=== PATIENT | male | born 1965 | race Caucasian/White ===

== ENCOUNTER → 2017-11-09 | Outpatient (CLI) | payer MEDICARE, OTHER ==
--- NOTE | 2017-11-09 10:19 | US ---
EXAMINATION TYPE: US venous doppler duplex LE LT DATE OF EXAM: 11/09/2017 9:28 AM COMPARISON: NONE CLINICAL HISTORY: M79.605 PAIN IN LT LEG. Wound left mid lateral calf for 2 weeks LOWER EXTREMITY VENOUS INSUFFICIENCY SIDE PERFORMED: left 1) Color flow is present and patency is documented in the following vessels. No DVT or SVT is noted . EIV Common Femoral Vein Deep Femoral Vein Femoral Vein Popliteal Vein Proximal Calf Veins Greater Saph Vein Upper Small Saph Vein 2) There is venous reflux noted at the following venous levels: left CFV and left small saph vein IMPRESSION: Venous reflux as noted.
--- NOTE | 2017-11-11 13:11 | P.ARTDOP ---
Arterial Doppler LOWER EXTREMITY ARTERIAL DOPPLER: DATE OF SERVICE: 11/09/2017 Reason for study: Left leg ulcer. Doppler waveforms: Multiphasic bilaterally throughout. Pulse volume recording: Normal configurations throughout. Pressure gradients: None. Ankle-brachial indices: Greater than 1 bilaterally. Toe pressures: 100 on the right, 127 on the left Impression: Normal study.
== END | disposition home or self-care (01) ==
LOC: RADUSWWP 08:44
PROVIDERS: ATTEND Podiatrist
DX: I87.2 Venous insufficiency (chronic) (peripheral) (principal); M79.604 Pain in right leg
CPT/HCPCS: 93923

== ENCOUNTER 2018-02-03 17:57 | Inpatient (IN) | payer MEDICARE, OTHER ==
[2018-02-03] MEDS ORDERED: DEXTROSE 50%-WATER 50 ML SYRINGE IVP STA (18:12)
[2018-02-03 18:17] LABS: Glucose,Whole Blood 69 mg/dL (75-99)
[2018-02-03 18:17] LABS: Glucose,Whole Blood 61 mg/dL (75-99)
[2018-02-03 19:09] LABS: Appearance,Urine Clear (Clear); Bilirubin,Urine Negative (Negative); Blood,Urine Trace (Negative); Color,Urine Yellow; Glucose,Urine (UA) Negative (Negative); Ketones,Urine Negative (Negative); Leukocyte Esterase,Urine Negative (Negative); Mucus,Urine Rare /hpf; Nitrite,Urine Negative (Negative); PH, Urine 5.5 (5.0-8.0); Protein,Urine 1+ (Negative); RBC,Urine 21 /hpf (0-5); Specific Gravity,Urine 1.012 (1.001-1.035); Squamous Epithelial Cell,Urine <1 /hpf (0-4); Urobilinogen,Urine <2.0 mg/dL (<2.0); WBC,Urine 11 /hpf (0-5)
--- NOTE | 2018-02-03 19:19 | CT ---
EXAMINATION TYPE: CT brain wo con DATE OF EXAM: 02/03/2018 HISTORY: Altered mental status CT DLP: 753 mGycm. Automated Exposure Control for Dose Reduction was Utilized. TECHNIQUE: CT scan of the head is performed without contrast. COMPARISON: CT brain September 06, 2017. FINDINGS: Exam noted suboptimal due to patient motion. There is no acute intracranial hemorrhage or midline shift identified. There is diffuse ventricular and sulcal prominence consistent with diffuse age-related cerebral atrophy. There is low-attenuation in the periventricular white matter most lik ruchi an basis of product of chronic small vessel ischemic change. The globes are intact and the visua lized sinuses are clear. The calvarium is intact. IMPRESSION: No acute intracranial hemorrhage or midline shift. There is mild diffuse age-related ce rebral atrophy and [id number] nonspecific white matter changes most likely on basis of product of chronic small vessel ischemic change redemonstrated. No significant change from prior CT is clear ly seen.
--- NOTE | 2018-02-03 19:37 | XR ---
EXAMINATION TYPE: XR chest 2V DATE OF EXAM: 02/03/2018 COMPARISON: Prior chest x-ray October 11, 2017. HISTORY: Altered mental status and weakness, possible infiltrate. History of heart failure. TECHNIQUE: Frontal and lateral views of the chest are obtained. FINDINGS: Exam is suboptimal due to patient's large body habitus. Low lung volumes are redemonstrated . There is no focal air space opacity, pleural effusion, or pneumothorax seen. The cardiac silhouet te size remains enlarged. There is an interval improvement in central vascular congestion. The visual ized osseous structures are intact. IMPRESSION: Cardiomegaly without acute pulmonary process identified currently .
[2018-02-03 19:43] LABS: Basophils % (A) 0 %; Eosinophils # (A) 0.1 k/uL (0-0.7); Eosinophils % (A) 2 %; HCT 40.3 % (39.0-53.0); HGB 12.8 gm/dL (13.0-17.5); Lymphocytes # (A) 0.5 k/uL (1.0-4.8); Lymphocytes % (A) 9 %; MCH 27.2 pg (25.0-35.0); MCHC 31.8 g/dL (31.0-37.0); MCV 85.6 fL (80.0-100.0); Mean Platelet Volume 6.9; Monocytes # (A) 0.2 k/uL (0-1.0); Monocytes % (A) 4 %; Neutrophils # (A) 4.8 k/uL (1.3-7.7); Neutrophils % (A) 82 %; Platelet Count 241 k/uL (150-450); RBC 4.71 m/uL (4.30-5.90); RDW 15.9 % (11.5-15.5); WBC 5.8 k/uL (3.8-10.6)
[2018-02-03 19:52] LABS: Calcium 9.2 mg/dL (8.4-10.2); Magnesium 2.3 mg/dL (1.6-2.3); Phosphorus 5.2 mg/dL (2.5-4.5); Potassium 4.6 mmol/L (3.5-5.1); Total Bilirubin 0.3 mg/dL (0.2-1.3)
[2018-02-03 19:53] LABS: Glucose,Whole Blood 87 mg/dL (75-99)
[2018-02-03 20:15] LABS: Glucose,Whole Blood 388 mg/dL (75-99)
[2018-02-03 20:28] LABS: Creatine Kinase MB 6.8 ng/mL (0.0-2.4); Troponin I 0.123 ng/mL (0.000-0.034)
[2018-02-03 20:47] LABS: Prothrombin Time 10.1 sec (9.0-12.0)
[2018-02-03 20:48] LABS: Partial Thromboplastin Time 20.9 sec (22.0-30.0)
--- NOTE | 2018-02-03 20:55 | ED ---
Altered Mental Status HPI - General Chief Complaint: Altered Mental Status Stated Complaint: ALtered Mental Status Time Seen by Provider: 02/03/18 18:08 Source: EMS Mode of arrival: EMS Limitations: no limitations - History of Present Illness Initial Comments: This 53-year-old white male presents by EMS with altered mental status. He apparently had a low blood sugar of 61 upon arrival. He was initially unable to give any history. Upon his mental status changes resolving, he does relate that he's been short of breath and having some midsternal chest pain/pressure for the last 2 days. He denies any fever or chills. He also relates that he's had some chronic low back pain. He used to be on [place]'s or Tylenol fours but his doctor stopped prescribing these as he took 2 much of them at one point. He also complains of left leg wound. He states that it is chronic in nature and apparently had a staph infection. He has home health nurse evaluating this. It seems to be improving. He states that he is a diabetic and he has a hard time controlling his blood sugar as he is not able to eat food like when he is in the hospital. He states that he cannot afford much food and is unable to drive to go to the grocery store. He denies any other complaints or modifying factors. - Related Data Home Medications Medication Instructions Recorded Confirmed Albuterol Inhaler [Ventolin Hfa 2 puff INHALATION RT-Q6H PRN 07/25/15 11/27/17 Inhaler] Budesonide-Formot 160-4.5 Mcg 2 puff INHALATION RT-BID 07/25/15 11/27/17 [Symbicort 160-4.5 Mcg Inhaler] Carvedilol 25 mg PO BID 07/25/15 11/27/17 Fenofibrate 160 mg PO DAILY 07/25/15 11/27/17 Gabapentin [Neurontin] 900 mg PO TID 07/25/15 11/27/17 Insulin Lispro [humaLOG Kwikpen] See Protocol SQ AC-TID 07/25/15 11/27/17 Simvastatin [Zocor] 40 mg PO HS 07/25/15 11/27/17 hydrALAZINE HCL 50 mg PO BID 07/25/15 11/27/17 DULoxetine HCL [Duloxetine HCl] 60 mg PO DAILY 07/07/16 11/27/17 Doxazosin Mesylate 8 mg PO HS 07/07/16 11/27/17 Fluticasone Nasal [place] [Flonase 1 - 2 sprays EA NOSTRIL DAILY PRN 07/07/1607/06 Nasal [place]] Tamsulosin HCl 0.4 mg PO HS 07/07/16 11/27/17 Lidocaine 5% Oint [Xylocaine 5% 1 applic TOPICAL BID PRN 09/06/17 11/27/17 Oint] buPROPion HCL [Wellbutrin XL] 300 mg PO DAILY 09/06/17 11/27/17 ALPRAZolam [Xanax] 0.25 mg PO BID PRN 10/08/17 11/27/17 Diclofenac Sodium [Voltaren Gel] 1 applic TOPICAL BID PRN 10/08/17 11/27/17 Montelukast [Singulair] 10 mg PO HS 10/08/17 11/27/17 rOPINIRole HCL [Requip] 6 mg PO BID@1200,2100 10/08/17 11/27/17 Previous Rx's Medication Instructions Recorded Furosemide [Lasix] 40 mg PO BID #60 tablet 10/12/17 Insulin Glargine,Hum.rec.anlog 15 unit SQ BID #0 10/12/17 [Lantus Solostar] Insulin Lispro [humaLOG Kwikpen] 8 unit SQ AC-TID #0 10/12/17 Allergies Allergy/AdvReac Type Severity Reaction Status Date / Time environmental AdvReac Unknown Uncoded 11/27/17 08:20 Review of Systems ROS Statement: Those systems with pertinent positive or pertinent negative responses have been documented in the HPI. ROS Other: All systems not noted in ROS Statement are negative. Past Medical History Past Medical History: Heart Failure, COPD, Diabetes Mellitus, Hyperlipidemia, Hypertension, Sleep Apnea/CPAP/BIPAP Additional Past Medical History / Comment(s): occasional numbness on left side, arthritis ,no cpap used"i could'nt afford it sent it back", left leg wound r/t trauma from fall, tinnitus, neuropathy. rls History of Any Multi-Drug Resistant Organisms: None Reported Past Surgical History: Cholecystectomy Additional Past Surgical History / Comment(s): colonoscopy Past Anesthesia/Blood Transfusion Reactions: No Reported Reaction Past Psychological History: Bipolar, Depression, Panic Disorder Smoking Status: Former smoker Past Alcohol Use History: None Reported Past Drug Use History: None Reported - Past Family History Father Family Medical History: Cancer Additional Family Medical History / Comment(s): lymphoma cancer Mother Additional Family Medical History / Comment(s): alzhemimers, General Exam - General Exam Comments Initial Comments: GENERAL: The patient is well nourished and well hydrated. VITAL SIGNS: Heart rate, blood pressure, respiratory rate reviewed as recorded in nurse's notes. EYES: Pupils are round and reactive. Extraocular movements are intact. No conjunctival / lid redness or swelling. ENT: No external evidence of injury, swelling, or ecchymosis. Airway is patent. Throat is clear. NECK: Nontender. No swelling or evidence of injury. No subcutaneous emphysema. Trachea is midline. No thyroid mass. HEART: Regular rate and rhythm. Good peripheral pulses. LUNGS/CHEST: Breath sounds clear and equal bilaterally. No rales, rhonchi, or wheezes. No ecchymosis, subcutaneous emphysema, or tenderness. ABDOMEN: Abdomen soft without tenderness. No palpable masses or organomegaly. No peritoneal signs. No abdominal wall swelling or ecchymosis. The patient is morbidly obese. EXTREMITIES: No extremity tenderness. Normal muscle tone and function. No thoracolumbar tenderness. NEUROLOGIC: He initially does have significant change in mental status. He will wake up slightly but is slurring his speech. This later does resolve. On recheck, sensation is grossly intact. Cranial nerve exam reveals face is symmetrical, tongue is midline, speech is clear. SKIN: There is a mild chronic wound noted to the left anterior lateral josue. There is no associated significant erythema. No induration or masses noted. PSYCHIATRIC: Alert and oriented. Appropriate behavior and judgment. Limitations: no limitations Course Vital Signs 02/03/18 02/03/18 02/03/18 18:33 18:53 19:27 Temperature 96.9 F L Pulse Rate 71 78 81 Respiratory 22 22 25 H Rate Blood Pressure 157/89 155/75 162/75 O2 Sat by Pulse 95 96 96 Oximetry 02/03/18 19:47 Temperature 97 F L Pulse Rate 63 Respiratory 18 Rate Blood Pressure 162/75 O2 Sat by Pulse 96 Oximetry Medical Decision Making - Medical Decision Making The patient is seen and examined. All diagnostics were reviewed. His initial EKG shows a sinus rhythm at a rate of 71. There is a first-degree AV block. There is no acute ST-T wave changes identified. The NH interval 04, QRS duration is 106, and the QTC intervals 478. The patient's blood sugar was low at 61 and he receives one amp of D50. The blood sugar does come up. His mental status changes seemed to improve. He also receives oxygen. Old records were reviewed and it does show that he has a significant history of sleep apnea. He states that he cannot afford a CPAP machine. The possibility of some CO2 narcosis and would be plausible as well but he does eventually improve his mentation significantly and there is no further slurring of his speech. His chest x-ray does not show any abnormalities. It does show some degree of cardiomegaly. It is somewhat limited due to significantly increased body habitus. The BNP and troponin is slightly elevated. His blood sugar on his labs is 81 she is improved. It is felt as though the possibility of acute coronary syndrome certainly is possible. It is felt as though he benefit from admission to the hospital for further treatment. He is agreeable to this plan. Case is discussed with Dr. Barfield and he is agreeable as well. In addition the patient had a computed tomography scan of the brain which did not show any acute process. - Lab Data Result diagrams: 02/03/18 19:35 02/03/18 19:35 Lab Results 02/03/18 02/03/18 02/03/18 Range/Units 18:04 18:06 18:44 WBC (3.8-10.6) k/uL RBC (4.30-5.90) m/uL Hgb (13.0-17.5) gm/dL Hct (39.0-53.0) % MCV (80.0-100.0) fL MCH (25.0-35.0) pg MCHC (31.0-37.0) g/dL RDW (11.5-15.5) % Plt Count (150-450) k/uL Neutrophils % % Lymphocytes % % Monocytes % % Eosinophils % % Basophils % % Neutrophils # (1.3-7.7) k/uL Lymphocytes # (1.0-4.8) k/uL Monocytes # (0-1.0) k/uL Eosinophils # (0-0.7) k/uL Basophils # (0-0.2) k/uL PT (9.0-12.0) sec INR (<1.2) APTT (22.0-30.0) sec Sodium (137-145) mmol/L Potassium (3.5-5.1) mmol/L Chloride (98-107) mmol/L Carbon Dioxide (22-30) mmol/L Anion Gap mmol/L BUN (9-20) mg/dL Creatinine (0.66-1.25) mg/dL Est GFR (CKD-EPI)AfAm (>60 ml/min/1.73 sqM) Est GFR (CKD-EPI)NonAf (>60 ml/min/1.73 sqM) Glucose (74-99) mg/dL POC Glucose (mg/dL) 69 L 61 L (75-99) mg/dL POC Glu Annual Giving Director Ceisa Funk Pineda Cesia Calcium (8.4-10.2) mg/dL Phosphorus (2.5-4.5) mg/dL Magnesium (1.6-2.3) mg/dL Total Bilirubin (0.2-1.3) mg/dL AST (17-59) U/L ALT (21-72) U/L Alkaline Phosphatase (38-126) U/L Total Creatine Kinase (55-170) U/L CK-MB (CK-2) (0.0-2.4) ng/mL CK-MB (CK-2) Rel Index Troponin I (0.000-0.034) ng/mL NT-Pro-B Natriuret Pep pg/mL Total Protein (6.3-8.2) g/dL Albumin (3.5-5.0) g/dL TSH (0.465-4.680) mIU/L Urine Color Yellow Urine Appearance Clear (Clear) Urine pH 5.5 (5.0-8.0) Ur Specific [place] 1.012 (1.001-1.035) Urine Protein 1+ H (Negative) Urine Glucose (UA) Negative (Negative) Urine Ketones Negative (Negative) Urine Blood Trace H (Negative) Urine Nitrite Negative (Negative) Urine Bilirubin Negative (Negative) Urine Urobilinogen <2.0 (<2.0) mg/dL Ur Leukocyte Esterase Negative (Negative) Urine RBC 21 H (0-5) /hpf Urine WBC 11 H (0-5) /hpf Ur Squamous Epith Cells <1 (0-4) /hpf Urine Mucus Rare H (None) /hpf 02/03/18 02/03/18 02/03/18 Range/Units 19:35 19:35 19:35 WBC 5.8 (3.8-10.6) k/uL RBC 4.71 (4.30-5.90) m/uL Hgb 12.8 L (13.0-17.5) gm/dL Hct 40.3 (39.0-53.0) % MCV 85.6 (80.0-100.0) fL MCH 27.2 (25.0-35.0) pg MCHC 31.8 (31.0-37.0) g/dL RDW 15.9 H (11.5-15.5) % Plt Count 241 (150-450) k/uL Neutrophils % 82 % Lymphocytes % 9 % Monocytes % 4 % Eosinophils % 2 % Basophils % 0 % Neutrophils # 4.8 (1.3-7.7) k/uL Lymphocytes # 0.5 L (1.0-4.8) k/uL Monocytes # 0.2 (0-1.0) k/uL Eosinophils # 0.1 (0-0.7) k/uL Basophils # 0.0 (0-0.2) k/uL PT 10.1 (9.0-12.0) sec INR 1.0 (<1.2) APTT 20.9 L (22.0-30.0) sec Sodium 143 (137-145) mmol/L Potassium 4.6 (3.5-5.1) mmol/L Chloride 99 (98-107) mmol/L Carbon Dioxide 32 H (22-30) mmol/L Anion Gap 12 mmol/L BUN 43 H (9-20) mg/dL Creatinine 1.87 H (0.66-1.25) mg/dL Est GFR (CKD-EPI)AfAm 46 (>60 ml/min/1.73 sqM) Est GFR (CKD-EPI)NonAf 40 (>60 ml/min/1.73 sqM) Glucose 86 (74-99) mg/dL POC Glucose (mg/dL) (75-99) mg/dL POC Glu Annual Giving Director ID Calcium 9.2 (8.4-10.2) mg/dL Phosphorus 5.2 H (2.5-4.5) mg/dL Magnesium 2.3 (1.6-2.3) mg/dL Total Bilirubin 0.3 (0.2-1.3) mg/dL AST 34 (17-59) U/L ALT 33 (21-72) U/L Alkaline Phosphatase 60 (38-126) U/L Total Creatine Kinase (55-170) U/L CK-MB (CK-2) (0.0-2.4) ng/mL CK-MB (CK-2) Rel Index Troponin I (0.000-0.034) ng/mL NT-Pro-B Natriuret Pep pg/mL Total Protein 7.0 (6.3-8.2) g/dL Albumin 4.0 (3.5-5.0) g/dL TSH 1.030 (0.465-4.680) mIU/L Urine Color Urine Appearance (Clear) Urine pH (5.0-8.0) Ur Specific [place] (1.001-1.035) Urine Protein (Negative) Urine Glucose (UA) (Negative) Urine Ketones (Negative) Urine Blood (Negative) Urine Nitrite (Negative) Urine Bilirubin (Negative) Urine Urobilinogen (<2.0) mg/dL Ur Leukocyte Esterase (Negative) Urine RBC (0-5) /hpf Urine WBC (0-5) /hpf Ur Squamous Epith Cells (0-4) /hpf Urine Mucus (None) /hpf 02/03/18 02/03/18 02/03/18 Range/Units 19:35 19:35 19:42 WBC (3.8-10.6) k/uL RBC (4.30-5.90) m/uL Hgb (13.0-17.5) gm/dL Hct (39.0-53.0) % MCV (80.0-100.0) fL MCH (25.0-35.0) pg MCHC (31.0-37.0) g/dL RDW (11.5-15.5) % Plt Count (150-450) k/uL Neutrophils % % Lymphocytes % % Monocytes % % Eosinophils % % Basophils % % Neutrophils # (1.3-7.7) k/uL Lymphocytes # (1.0-4.8) k/uL Monocytes # (0-1.0) k/uL Eosinophils # (0-0.7) k/uL Basophils # (0-0.2) k/uL PT (9.0-12.0) sec INR (<1.2) APTT (22.0-30.0) sec Sodium (137-145) mmol/L Potassium (3.5-5.1) mmol/L Chloride (98-107) mmol/L Carbon Dioxide (22-30) mmol/L Anion Gap mmol/L BUN (9-20) mg/dL Creatinine (0.66-1.25) mg/dL Est GFR (CKD-EPI)AfAm (>60 ml/min/1.73 sqM) Est GFR (CKD-EPI)NonAf (>60 ml/min/1.73 sqM) Glucose (74-99) mg/dL POC Glucose (mg/dL) 388 H (75-99) mg/dL POC Glu Annual Giving Director ID Angie Kaiser Calcium (8.4-10.2) mg/dL Phosphorus (2.5-4.5) mg/dL Magnesium (1.6-2.3) mg/dL Total Bilirubin (0.2-1.3) mg/dL AST (17-59) U/L ALT (21-72) U/L Alkaline Phosphatase (38-126) U/L Total Creatine Kinase 209 H (55-170) U/L CK-MB (CK-2) 6.8 H* (0.0-2.4) ng/mL CK-MB (CK-2) Rel Index 3.3 Troponin I 0.123 H* (0.000-0.034) ng/mL NT-Pro-B Natriuret Pep 426 pg/mL Total Protein (6.3-8.2) g/dL Albumin (3.5-5.0) g/dL TSH (0.465-4.680) mIU/L Urine Color Urine Appearance (Clear) Urine pH (5.0-8.0) Ur Specific [place] (1.001-1.035) Urine Protein (Negative) Urine Glucose (UA) (Negative) Urine Ketones (Negative) Urine Blood (Negative) Urine Nitrite (Negative) Urine Bilirubin (Negative) Urine Urobilinogen (<2.0) mg/dL Ur Leukocyte Esterase (Negative) Urine RBC (0-5) /hpf Urine WBC (0-5) /hpf Ur Squamous Epith Cells (0-4) /hpf Urine Mucus (None) /hpf 02/03/18 Range/Units 19:43 WBC (3.8-10.6) k/uL RBC (4.30-5.90) m/uL Hgb (13.0-17.5) gm/dL Hct (39.0-53.0) % MCV (80.0-100.0) fL MCH (25.0-35.0) pg MCHC (31.0-37.0) g/dL RDW (11.5-15.5) % Plt Count (150-450) k/uL Neutrophils % % Lymphocytes % % Monocytes % % Eosinophils % % Basophils % % Neutrophils # (1.3-7.7) k/uL Lymphocytes # (1.0-4.8) k/uL Monocytes # (0-1.0) k/uL Eosinophils # (0-0.7) k/uL Basophils # (0-0.2) k/uL PT (9.0-12.0) sec INR (<1.2) APTT (22.0-30.0) sec Sodium (137-145) mmol/L Potassium (3.5-5.1) mmol/L Chloride (98-107) mmol/L Carbon Dioxide (22-30) mmol/L Anion Gap mmol/L BUN (9-20) mg/dL Creatinine (0.66-1.25) mg/dL Est GFR (CKD-EPI)AfAm (>60 ml/min/1.73 sqM) Est GFR (CKD-EPI)NonAf (>60 ml/min/1.73 sqM) Glucose (74-99) mg/dL POC Glucose (mg/dL) 87 (75-99) mg/dL POC Glu Annual Giving Director ID Cody Vaz Calcium (8.4-10.2) mg/dL Phosphorus (2.5-4.5) mg/dL Magnesium (1.6-2.3) mg/dL Total Bilirubin (0.2-1.3) mg/dL AST (17-59) U/L ALT (21-72) U/L Alkaline Phosphatase (38-126) U/L Total Creatine Kinase (55-170) U/L CK-MB (CK-2) (0.0-2.4) ng/mL CK-MB (CK-2) Rel Index Troponin I (0.000-0.034) ng/mL NT-Pro-B Natriuret Pep pg/mL Total Protein (6.3-8.2) g/dL Albumin (3.5-5.0) g/dL TSH (0.465-4.680) mIU/L Urine Color Urine Appearance (Clear) Urine pH (5.0-8.0) Ur Specific [place] (1.001-1.035) Urine Protein (Negative) Urine Glucose (UA) (Negative) Urine Ketones (Negative) Urine Blood (Negative) Urine Nitrite (Negative) Urine Bilirubin (Negative) Urine Urobilinogen (<2.0) mg/dL Ur Leukocyte Esterase (Negative) Urine RBC (0-5) /hpf Urine WBC (0-5) /hpf Ur Squamous Epith Cells (0-4) /hpf Urine Mucus (None) /hpf Disposition Clinical Impression: Altered mental status, Dyspnea, Chest pain, Unstable angina, Hypertension, Morbid obesity, Hypoglycemia, Diabetes, Sleep apnea, Renal insufficiency, NSTEMI (non-ST elevated myocardial infarction) Disposition: ADMITTED IP TO THIS HOSP Condition: Fair Is patient prescribed a controlled substance at discharge?: No Time of Disposition: 20:55 Decision Date: 02/03/18 Decision Time: 20:55
[2018-02-03] MEDS ORDERED: FUROSEMIDE 10 MG/ML 4 ML VIAL IV STA (20:57)
[2018-02-03] MEDS ORDERED: IPRATROPIUM-ALBUTEROL 3 ML NEB INHALATION STA (20:57)
[2018-02-03] MEDS ORDERED: HEPARIN SODIUM,PORCINE 5,000 UNIT/ML 1 ML VIAL IV ONE (20:58)
[2018-02-03] MEDS ORDERED: HEPARIN SODIUM,PORCINE 5,000 UNIT/ML 1 ML VIAL IV PRN (20:58)
[2018-02-03] MEDS ORDERED: NITROGLYCERIN SL TABS 0.4 MG TAB SUBLINGUAL PRN (20:58)
[2018-02-03] MEDS ORDERED: ASPIRIN 81 MG PO STA ×2 (21:04→22:57)
[2018-02-03 21:33] LABS: Glucose,Whole Blood 88 mg/dL (75-99)
[2018-02-03] MEDS: HEPARIN SOD,PORK IN 0.45% NACL 25,000 UNIT in 0.45% NACL 1 500ML.BAG IV SCH (21:35)
[2018-02-03 22:16] LABS: Glucose,Whole Blood 112 mg/dL (75-99)
[2018-02-03 22:19] LABS: Amphetamine Screen,Urine Not Detected (NotDetected); Benzodiazepines Screen,Urine Not Detected (NotDetected); Cocaine Screen,Urine Not Detected (NotDetected); Opiate Screen,Urine Not Detected (NotDetected); Phencyclidine Screen,Urine Not Detected (NotDetected); Urn Cannabinoid Scrn Not Detected (NotDetected)
[2018-02-03 22:20] LABS: Barbiturate Screen,Urine Not Detected (NotDetected); Methadone Screen, Urine Not Detected (NotDetected); Oxycodone Screen, Urine Not Detected (NotDetected); Tricyclic Antidepressant,Urine Not Detected (NotDetected)
[2018-02-03] MEDS: NITROGLYCERIN OINT 1 INCH/GM PACKET TOPICAL SCH (22:58)
[2018-02-03] MEDS ORDERED: ALPRAZolam 0.25 MG TAB PO PRN (23:15)
[2018-02-03] MEDS ORDERED: NON-FORMULARY DRUG (Lidocaine 5% Oint 1 APPLIC) TOPICAL PRN (23:15)
[2018-02-03 23:20] VITALS: BMI 57.0
[2018-02-04 03:41] LABS: Mean Platelet Volume 7.3; Platelet Count 248 k/uL (150-450)
[2018-02-04 03:59] LABS: Cholesterol 117 mg/dL (<200); HDL Cholesterol 47 mg/dL (40-60); LDL Cholesterol,Calculated 42 mg/dL (0-99); Triglycerides 140 mg/dL (<150)
[2018-02-04 04:19] LABS: Creatine Kinase MB 5.7 ng/mL (0.0-2.4); Troponin I 0.085 ng/mL (0.000-0.034)
[2018-02-04 06:01] LABS: Glucose,Whole Blood 103 mg/dL (75-99)
[2018-02-04] MEDS: INSULIN ASPART 100 UNIT/ML 1 ML 10 ML VIAL SQ SCH ×7 (06:03→22:19)
[2018-02-04] MEDS: CARVEDILOL 12.5 MG TAB PO SCH ×2 (06:19→17:19)
[2018-02-04] MEDS: NITROGLYCERIN OINT 1 INCH/GM PACKET TOPICAL SCH (06:19)
[2018-02-04] MEDS ORDERED: INSULIN ASPART 100 UNIT/ML 1 ML 10 ML VIAL SQ SCH (07:30)
[2018-02-04] MEDS ORDERED: DICLOFENAC SODIUM GEL 100 GM TUBE TOPICAL PRN (09:00)
[2018-02-04] MEDS ORDERED: ASPIRIN 325 MG TAB PO SCH (09:00)
[2018-02-04] MEDS ORDERED: FENOFIBRATE 160 MG TAB PO SCH (09:00)
[2018-02-04] MEDS ORDERED: FUROSEMIDE 40 MG TAB PO SCH (09:00)
[2018-02-04] MEDS ORDERED: INSULIN DETEMIR 100 UNIT/ML 10 ML VIAL SQ SCH (09:00)
[2018-02-04] MEDS: hydrALAZINE HCL 50 MG TAB PO SCH ×2 (09:05→20:34)
[2018-02-04] MEDS: buPROPion XL 300 MG TAB.ER.24H PO SCH (09:05)
[2018-02-04] MEDS: GABAPENTIN 300 MG CAP PO SCH ×3 (09:05→22:01)
[2018-02-04] MEDS: rOPINIRole HCL 4 MG TABLET PO SCH ×3 (09:07→22:01)
[2018-02-04] MEDS: FLUTICASONE 50MCG/SPRAY NASAL 16GM EA NOSTRIL SCH ×2 (09:10→20:32)
[2018-02-04] MEDS: DULoxetine HCL 60 MG CAPSULE.DR PO SCH (09:10)
[2018-02-04] MEDS: FUROSEMIDE 10 MG/ML 4 ML VIAL IV SCH ×2 (09:10→20:33)
--- NOTE | 2018-02-04 09:43 | P.PN ---
Progress Note - Text This is an addendum to the dictated cardiology consultation. The patient has a known history of hypertension, hyperlipidemia, diabetes mellitus, obstructive sleep apnea who has not followed on a regular basis with Dr. Marquez who presents with change in mental status, hypoglycemia, dyspnea and occasional chest discomfort. He has significant dyspnea on exertion that is not new to him. He had some of peripheral edema in the past and recent infection his lower extremities. He has a known history of chronic kidney disease and on presentation his troponin was mildly elevated but that could be related to his baseline renal function. He has some chest discomfort but the discomfort is worse with palpation of the chest. He denies any arrhythmia but he has dizziness with clear symptoms of obstructive sleep apnea but he has not used his CPAP because of cost. His lung exam shows scattered wheezes, he is in sinus mechanism with a systolic murmur, he has mild erythema in the lower extremities and 1+ edema. His troponin elevation is most likely related to his renal function abnormalities and could be representing a type II event. I will continue on his present medical regimen and obtain an echocardiogram with Doppler. If there is a change in his systolic function compared with his prior testing then he may require coronary angiography. He had a dobutamine stress echocardiogram in October 2015 that showed no evidence of inducible ischemia. His overall prognosis is guarded in view of his overall risk factors. Thank you for this consult we will follow with you.
[2018-02-04] MEDS ORDERED: ASPIRIN 81 MG PO SCH (09:45)
--- NOTE | 2018-02-04 10:28 | P.CRDCN ---
History of Present Illness Consult date: 02/04/18 Requesting physician: Selena Barfield Reason for Consult (text): NSTEMI Chief complaint: hypoglycemia History of present illness: This is a pleasant 53-year-old gentleman with history of diabetes, hypertension , dyslipidemia, obesity, sleep apnea, and noncompliance due to cost. He has previously been seen in the office by Dr. Marquez for evaluation prior to undergoing bariatric surgery which patient did not go through with. His most recent cardiac testing included an echocardiogram in September 2017 that showed a normal LV systolic function with an ejection fraction of 60-65%, severe concentric LVH and possible bicuspid aortic valve which was not seen on an echocardiogram done in our office in 2014. He presented to the emergency department due to hypoglycemia. His blood sugar was low at home however he did not have any food to eat except for some cheese which he could not eat. He was having some altered mental status. He also complained of some shortness of breath which is chronic for him. He's also been experiencing some midsternal chest discomfort with deep inspiration and palpation. Upon presentation EKG showed sinus rhythm without evidence of acute ischemia. Laboratory values showed a BUN of 43, creatinine 1.87. His NT proBNP was normal for his age at 426. Troponins were mildly elevated at 0.123 and 0.085, we are awaiting a third set. Chest x-ray showed cardiomegaly without acute process. Computed tomography scan of the brain showed no acute intracranial hemorrhage or midline shift. Upon examination, patient is resting comfortably in bed. He does verbalize that he feels quite a bit better. He continues to have chest discomfort with deep inspiration and palpation. Past Medical History Past Medical History: Heart Failure, COPD, Diabetes Mellitus, Hyperlipidemia, Hypertension, Sleep Apnea/CPAP/BIPAP Additional Past Medical History / Comment(s): occasional numbness on left side, arthritis ,no cpap used"i couldn't afford it sent it back", left leg wound r/t trauma from fall, tinnitus, neuropathy. rls History of Any Multi-Drug Resistant Organisms: None Reported Past Surgical History: Cholecystectomy Additional Past Surgical History / Comment(s): colonoscopy Past Anesthesia/Blood Transfusion Reactions: No Reported Reaction Past Psychological History: Bipolar, Depression, Panic Disorder Smoking Status: Former smoker Past Alcohol Use History: None Reported Additional Past Alcohol Use History / Comment(s): started smoking at age 15 and quit 2010, smoked 2.5 ppd. Past Drug Use History: None Reported - Past Family History Father Family Medical History: Cancer Additional Family Medical History / Comment(s): lymphoma cancer Mother Additional Family Medical History / Comment(s): alzhemimers, Medications and Allergies Home Medications Medication Instructions Recorded Confirmed Type Albuterol Inhaler [Ventolin Hfa 2 puff INHALATION RT-Q6H PRN 07/25/15 02/03/18 History Inhaler] Carvedilol 25 mg PO BID 07/25/15 02/03/18 History Fenofibrate 160 mg PO DAILY 07/25/15 02/03/18 History Gabapentin [Neurontin] 900 mg PO TID 07/25/15 02/03/18 History Insulin Lispro [humaLOG Kwikpen] See Protocol SQ AC-TID 07/25/15 02/03/18 History Simvastatin [Zocor] 40 mg PO HS 07/25/15 02/03/18 History hydrALAZINE HCL 50 mg PO BID 07/25/15 02/03/18 History DULoxetine HCL [Duloxetine HCl] 60 mg PO DAILY 07/07/16 02/03/18 History Doxazosin Mesylate 8 mg PO HS 07/07/16 02/03/18 History Fluticasone Nasal [place] [Flonase 2 sprays EA NOSTRIL BID 07/07/16 02/03/18 History Nasal Ma[place]] Tamsulosin HCl 0.4 mg PO HS 07/07/16 02/03/18 History Lidocaine 5% Oint [Xylocaine 5% 1 applic TOPICAL BID PRN 09/06/17 02/03/18 History Oint] buPROPion HCL [Wellbutrin XL] 300 mg PO DAILY 09/06/17 02/03/18 History ALPRAZolam [Xanax] 0.25 mg PO BID PRN 10/08/17 02/03/18 History Diclofenac Sodium [Voltaren Gel] 1 applic TOPICAL BID PRN 10/08/17 02/03/18 History rOPINIRole HCL [Requip] 6 mg PO TID 10/08/17 02/03/18 History Aspirin [Children's Aspirin] 81 mg PO DAILY 02/03/18 02/03/18 History Furosemide [Lasix] 40 - 80 mg PO DAILY 02/03/18 02/03/18 History Insulin Glargine,Hum.rec.anlog 80 unit SQ BID 02/03/18 02/03/18 History [Lantus Solostar] Insulin Lispro [humaLOG Kwikpen] 30 - 40 unit SQ AC-TID 02/03/18 02/03/18 History Allergies Allergy/AdvReac Type Severity Reaction Status Date / Time environmental AdvReac Unknown Uncoded 11/27/17 08:20 Physical Exam Vitals: Vital Signs Temp Pulse Pulse Resp BP BP Pulse Ox 02/04/18 07:40 97.9 F 69 17 116/62 96 02/04/18 04:00 98 F 84 18 133/67 95 02/04/18 00:00 18 02/03/18 22:30 97.3 F L 79 18 136/75 98 02/03/18 21:39 73 02/03/18 21:38 73 18 164/80 97 02/03/18 21:31 79 02/03/18 19:47 97 F L 63 18 162/75 96 02/03/18 19:27 81 25 H 162/75 96 02/03/18 18:53 78 22 155/75 96 02/03/18 18:33 96.9 F L 71 22 157/89 95 Intake and Output 02/03/18 02/04/18 02/04/18 22:59 06:59 14:59 Intake Total 141.545 Output Total 800 Balance -658.455 Intake: Intake, IV Titration 141.545 Amount Heparin Sod,Pork in 0.45% 141.545 NaCl 25,000 unit In 0.45 % NaCl 1 500ml.bag @ 6.3 UNITS/KG/HR 20.03 mls/hr IV .Q24H [facility] Rx#: [id number] Output: Urine 800 Other: Weight 180.319 kg 170 kg PHYSICAL EXAMINATION: HEENT: Head is atraumatic, normocephalic. Pupils equal, round. Neck is supple. There is no elevated jugular venous pressure. HEART EXAMINATION: Heart sounds regular, S1 and S2 with a systolic murmur. CHEST EXAMINATION: Lungs reveal diminished air entry bilaterally. No chest wall tenderness is noted on palpation or with deep breathing. ABDOMEN: Soft, nontender. Bowel sounds are heard. No organomegaly noted. EXTREMITIES:1+ peripheral pulses with evidence of trace peripheral edema and no calf tenderness noted. Mild erythema noted to bilateral lower legs. Dressing in place to left lower leg. NEUROLOGIC patient is awake, alert and oriented x3. . Results 02/04/18 03:17 02/03/18 19:35 Cardiac Enzymes 02/03/18 02/03/18 02/04/18 Range/Units 19:35 19:35 03:17 AST 34 (17-59) U/L CK-MB (CK-2) 6.8 H* 5.7 H* (0.0-2.4) ng/mL Troponin I 0.123 H* 0.085 H* (0.000-0.034) ng/mL Coagulation 02/03/18 02/04/18 Range/Units 19:35 03:17 PT 10.1 (9.0-12.0) sec APTT 20.9 L 24.7 (22.0-30.0) sec Lipids 02/04/18 Range/Units 03:17 Triglycerides 140 (<150) mg/dL Cholesterol 117 (<200) mg/dL HDL Cholesterol 47 (40-60) mg/dL CBC 02/03/18 02/04/18 Range/Units 19:35 03:17 WBC 5.8 (3.8-10.6) k/uL RBC 4.71 (4.30-5.90) m/uL Hgb 12.8 L (13.0-17.5) gm/dL Hct 40.3 (39.0-53.0) % Plt Count 241 248 (150-450) k/uL Comprehensive Metabolic Panel 02/03/18 Range/Units 19:35 Sodium 143 (137-145) mmol/L Potassium 4.6 (3.5-5.1) mmol/L Chloride 99 (98-107) mmol/L Carbon Dioxide 32 H (22-30) mmol/L BUN 43 H (9-20) mg/dL Creatinine 1.87 H (0.66-1.25) mg/dL Glucose 86 (74-99) mg/dL Calcium 9.2 (8.4-10.2) mg/dL AST 34 (17-59) U/L ALT 33 (21-72) U/L Alkaline Phosphatase 60 (38-126) U/L Total Protein 7.0 (6.3-8.2) g/dL Albumin 4.0 (3.5-5.0) g/dL Current Medications Generic Name Dose Route Start Last Admin Trade Name Freq PRN Reason Stop Dose Admin Alprazolam 0.25 mg 02/03/18 23:15 Xanax PO BID PRN Severe Anxiety Aspirin 325 mg 02/04/18 09:00 Aspirin PO DAILY [facility] Atorvastatin Calcium 20 mg 02/04/18 21:00 Lipitor PO HS [facility] Bupropion HCl 300 mg 02/04/18 09:00 Wellbutrin Xl PO DAILY [facility] Carvedilol 25 mg 02/04/18 07:30 02/04/18 06:19 Coreg PO 25 mg AC-BID [facility] Administration Diclofenac Sodium 1 gm 02/04/18 09:00 Voltaren Gel TOPICAL BID PRN Pain Doxazosin Mesylate 8 mg 02/04/18 21:00 Cardura PO HS [facility] Duloxetine HCl 60 mg 02/04/18 09:00 Cymbalta PO DAILY [facility] Fenofibrate 160 mg 02/04/18 09:00 Lofibra PO DAILY [facility] Fluticasone Propionate 2 spray 02/04/18 09:00 Flonase Nasal Maury EA NOSTRIL BID [facility] Furosemide 40 mg 02/04/18 09:00 Lasix IV BID [facility] Gabapentin 900 mg 02/04/18 09:00 Neurontin PO TID [facility] Heparin Sodium (Porcine) 0 unit 02/03/18 20:58 Heparin IV Q6HR PRN Low PTT Protocol Hydralazine HCl 50 mg 02/04/18 09:00 Apresoline PO BID [facility] Heparin Sodium/Sodium Chloride 500 mls @ 20.03 mls/hr 02/03/18 21:00 04:39 25,000 unit/ Sodium Chloride IV 9.3 units/kg/hr .Q24H [facility] 29.57 mls/hr Protocol Titration 6.3 UNITS/KG/HR Insulin Aspart 0 unit 02/04/18 07:30 02/04/18 06:03 Novolog SQ Not Given ACHS [facility] Protocol Insulin Aspart 30 unit 02/04/18 07:30 02/04/18 06:24 Novolog SQ Not Given AC-TID [facility] Insulin Detemir 80 unit 02/04/18 09:00 Levemir SQ BID [facility] Nitroglycerin 1 inch 02/03/18 22:00 02/04/18 06:19 Nitro-Bid Oint TOPICAL 1 inch Q6HR [facility] Administration Nitroglycerin 0.4 mg 02/03/18 20:58 Nitrostat SUBLINGUAL Q5M PRN Chest Pain Ropinirole HCl 6 mg 02/04/18 09:00 Requip PO TID [facility] Tamsulosin HCl 0.4 mg 02/04/18 21:00 Flomax PO HS [facility] Intake and Output 02/03/18 02/04/18 02/04/18 22:59 06:59 14:59 Intake Total 141.545 Output Total 800 Balance -658.455 Intake: Intake, IV Titration 141.545 Amount Heparin Sod,Pork in 0.45% 141.545 NaCl 25,000 unit In 0.45 % NaCl 1 500ml.bag @ 6.3 UNITS/KG/HR 20.03 mls/hr IV .Q24H [facility] Rx#: [id number] Output: Urine 800 Other: Weight 180.319 kg 170 kg 02/04/18 03:17 02/03/18 19:35 EKG Interpretations (text) Sinus rhythm with no evidence of acute ischemia Assessment and Plan Assessment: #1 diabetes with hypoglycemia #2 elevated troponin I clearly related to his renal function abnormality and could be representing a type II event #3 hypertension #4 hyperlipidemia #5 obesity #6 symptoms of chest discomfort, likely musculoskeletal #7 sleep apnea, noncompliant with use of CPAP due to cost Plan: From cardiology perspective, we will obtain a 2-D echo with Doppler to assess LV systolic function and rule out any new wall motion abnormalities. We'll continue to monitor the patient and provide further recommendations accordingly. Continue heparin through tomorrow morning. We will await third troponin level. 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 Patient was seen and examined.
[2018-02-04 11:13] LABS: Creatine Kinase MB 4.5 ng/mL (0.0-2.4); Troponin I 0.085 ng/mL (0.000-0.034)
--- NOTE | 2018-02-04 11:41 | ECHOF ---
Referral Reason:elevated troponin MEASUREMENTS -------- HEIGHT: 177.8 cm WEIGHT: 169.6 kg BP: 116/62 RVIDd: 2.9 cm (< 3.3) IVSd: 1.4 cm (0.6 - 1.1) LVIDd: 2.9 cm (3.9 - 5.3) LVPWd: 1.4 cm (0.6 - 1.1) IVSs: 1.7 cm LVIDs: 1.7 cm LVPWs: 1.6 cm LAESV Index (A-L): 19.28 ml/m Ao Diam: 4.3 cm (2.0 - 3.7) AV Cusp: 2.0 cm (1.5 - 2.6) LA Diam: 3.5 cm (2.7 - 3.8) MV E Yuan: 1.05 m/s MV DecT: 304 ms MV A Yuan: 0.85 m/s MV E/A Ratio: 1.25 AV maxP.63 mmHg AV meanP.23 mmHg RAP: 10.00 mmHg RVSP: 20.78 mmHg FINDINGS -------- Sinus rhythm. This was a technically adequate study. The left ventricular size is normal. There is moderate concentric left ventricular hypertrophy. O verall left ventricular systolic function is normal with, an EF between 55 - 60 %. The right ventricle is mildly enlarged. Normal LA size by volume 22+/-6 ml/m2. The right atrium is normal in size. There is no evidence of aortic regurgitation. There is no evidence of aortic stenosis. Peak/mean gradient across the Aortic Valve is 22.63mmHg / 14.23mmHg. Aortic valve is functionally bicuspid an d is moderately thickened. The mitral valve leaflets are mildly thickened. There is trace to mild mitral regurgitation. Trace tricuspid regurgitation present. Right ventricular systolic pressure is normal at < 35 mmHg. There is no evidence of pulmonary hypertension. The pulmonic valve was not well visualized. The aortic root size is normal. The IVC is dilated with normal collapse. There is no pericardial effusion. CONCLUSIONS -------- 1. Sinus rhythm. 2. This was a technically adequate study. 3. The left ventricular size is normal. 4. There is moderate concentric left ventricular hypertrophy. 5. Overall left ventricular systolic function is normal with, an EF between 55 - 60 %. 6. The right ventricle is mildly enlarged. 7. Normal LA size by volume 22+/-6 ml/m2. 8. Peak/mean gradient across the Aortic Valve is 22.63mmHg / 14.23mmHg. 9. The mitral valve leaflets are mildly thickened. 10. There is trace to mild mitral regurgitation. 11. Trace tricuspid regurgitation present. 12. Right ventricular systolic pressure is normal at < 35 mmHg. 13. There is no evidence of pulmonary hypertension. 14. The pulmonic valve was not well visualized. 15. The aortic root size is normal. 16. The IVC is dilated with normal collapse. 17. There is no pericardial effusion. DIRECTOR GAME: Jimbo Mancera RDCS
[2018-02-04] MEDS: ISOSORBIDE MONONITRATE ER 30 MG TAB.ER.24H PO SCH (11:49)
[2018-02-04 11:50] LABS: Glucose,Whole Blood 131 mg/dL (75-99)
--- NOTE | 2018-02-04 12:09 | P.HPIM ---
History of Present Illness H&P Date: 02/04/18 Chief Complaint: Confusion This is a 53-year-old gentleman with past medical history noted below who presented to the emergency room with confusion and altered mental status. Patient was brought in by EMS. He is diabetic and is maintained on high doses of insulin at home. He was found to have a blood glucose of 60 on presentation and was given amp of D50 with significant improvement in his mentation. Computed tomography scan of the brain showed no acute findings. Patient said that recently he was more tired and sleepy throughout the day. He is known to have obstructive sleep apnea but said that he is not using his CPAP machine at home as he is unable to afford the co-pay. He said that he sleepy usually throughout the day. He admits to poor by mouth intake recently. He said that his blood sugars dropping multiple times and he did not have any sugar pill to take at home. He said also that he is unable to afford that either. Patient was noted to have an elevated troponin in the emergency room and was admitted to the telemetry floor. Patient himself denies any chest pain or shortness of breath. He was seen and Review of Systems Review of system: 14 points review of systems were obtained and were negative except to what were mentioned in the HPI. Past Medical History Past Medical History: Heart Failure, COPD, Diabetes Mellitus, Hyperlipidemia, Hypertension, Sleep Apnea/CPAP/BIPAP Additional Past Medical History / Comment(s): occasional numbness on left side, arthritis ,no cpap used"i couldn't afford it sent it back", left leg wound r/t trauma from fall, tinnitus, neuropathy. rls History of Any Multi-Drug Resistant Organisms: None Reported Past Surgical History: Cholecystectomy Additional Past Surgical History / Comment(s): colonoscopy Past Anesthesia/Blood Transfusion Reactions: No Reported Reaction Past Psychological History: Bipolar, Depression, Panic Disorder Smoking Status: Former smoker Past Alcohol Use History: None Reported Additional Past Alcohol Use History / Comment(s): started smoking at age 15 and quit 2010, smoked 2.5 ppd. Past Drug Use History: None Reported - Past Family History Father Family Medical History: Cancer Additional Family Medical History / Comment(s): lymphoma cancer Mother Additional Family Medical History / Comment(s): alzhemimers, Medications and Allergies Home Medications Medication Instructions Recorded Confirmed Type Albuterol Inhaler [Ventolin Hfa 2 puff INHALATION RT-Q6H PRN 07/25/15 02/03/18 History Inhaler] Carvedilol 25 mg PO BID 07/25/15 02/03/18 History Fenofibrate 160 mg PO DAILY 07/25/15 02/03/18 History Gabapentin [Neurontin] 900 mg PO TID 07/25/15 02/03/18 History Insulin Lispro [humaLOG Kwikpen] See Protocol SQ AC-TID 07/25/15 02/03/18 History Simvastatin [Zocor] 40 mg PO HS 07/25/15 02/03/18 History hydrALAZINE HCL 50 mg PO BID 07/25/15 02/03/18 History DULoxetine HCL [Duloxetine HCl] 60 mg PO DAILY 07/07/16 02/03/18 History Doxazosin Mesylate 8 mg PO HS 07/07/16 02/03/18 History Fluticasone Nasal [place] [Flonase 2 sprays EA NOSTRIL BID 07/07/16 02/03/18 History Nasal [place]] Tamsulosin HCl 0.4 mg PO HS 07/07/16 02/03/18 History Lidocaine 5% Oint [Xylocaine 5% 1 applic TOPICAL BID PRN 09/06/17 02/03/18 History Oint] buPROPion HCL [Wellbutrin XL] 300 mg PO DAILY 09/06/17 02/03/18 History ALPRAZolam [Xanax] 0.25 mg PO BID PRN 10/08/17 02/03/18 History Diclofenac Sodium [Voltaren Gel] 1 applic TOPICAL BID PRN 10/08/17 02/03/18 History rOPINIRole HCL [Requip] 6 mg PO TID 10/08/17 02/03/18 History Aspirin [Children's Aspirin] 81 mg PO DAILY 02/03/18 02/03/18 History Furosemide [Lasix] 40 - 80 mg PO DAILY 02/03/18 02/03/18 History Insulin Glargine,Hum.rec.anlog 80 unit SQ BID 02/03/18 02/03/18 History [Lantus Solostar] Insulin Lispro [humaLOG Kwikpen] 30 - 40 unit SQ AC-TID 02/03/18 02/03/18 History Allergies Allergy/AdvReac Type Severity Reaction Status Date / Time environmental AdvReac Unknown Uncoded 11/27/17 08:20 Physical Exam Vitals: Vital Signs Temp Pulse Pulse Resp BP BP Pulse Ox 02/04/18 10:55 79 17 126/66 96 02/04/18 07:40 97.9 F 69 17 116/62 96 02/04/18 04:00 98 F 84 18 133/67 95 02/04/18 00:00 18 02/03/18 22:30 97.3 F L 79 18 136/75 98 02/03/18 21:39 73 02/03/18 21:38 73 18 164/80 97 02/03/18 21:31 79 02/03/18 19:47 97 F L 63 18 162/75 96 02/03/18 19:27 81 25 H 162/75 96 02/03/18 18:53 78 22 155/75 96 02/03/18 18:33 96.9 F L 71 22 157/89 95 Intake and Output 02/03/18 02/04/18 02/04/18 22:59 06:59 14:59 Intake Total 141.545 0 Output Total 800 Balance -658.455 0 Intake: Intake, IV Titration 141.545 Amount Heparin Sod,Pork in 0.45% 141.545 NaCl 25,000 unit In 0.45 % NaCl 1 500ml.bag @ 6.3 UNITS/KG/HR 20.03 mls/hr IV .Q24H [facility] Rx#: [id number] Oral 0 Output: Urine 800 Other: # Voids 2 # Bowel Movements 0 Weight 180.319 kg 170 kg General: The patient is awake and alert, in no distress, and does not appear acutely ill. Eye: extra-ocular movements are intact; there is normal conjunctiva bilaterally. There is bruising area surrounding the right eye worse on the lower eyelid Neck: The neck is supple, there is no tenderness or JVD. Cardiovascular: Normal S1-S2, no S3-S4, no murmurs. Respiratory: Lungs clear to auscultation bilaterally with no wheezes rhonchi or rales. Gastrointestinal: Abdomen is obese, .soft, nontender, Musculoskeletal: Normal ROM, no tenderness, There is +1 pedal edema. Neurological: There are no obvious motor or sensory deficits. Speech is normal. Skin: Skin is warm and dry and no rashes or lesions are noted. There is a chronic diabetic ulcer on the left lower extremity at the mid josue appears to be healing well with no evidence of infection Results CBC & Chem 7: 02/04/18 03:17 02/03/18 19:35 Labs: Abnormal Lab Results - Last 24 Hours (Table) 02/03/18 02/03/18 02/03/18 Range/Units 18:04 18:06 18:44 Hgb (13.0-17.5) gm/dL RDW (11.5-15.5) % Lymphocytes # (1.0-4.8) k/uL APTT (22.0-30.0) sec Carbon Dioxide (22-30) mmol/L BUN (9-20) mg/dL Creatinine (0.66-1.25) mg/dL POC Glucose (mg/dL) 69 L 61 L (75-99) mg/dL Phosphorus (2.5-4.5) mg/dL Total Creatine Kinase (55-170) U/L CK-MB (CK-2) (0.0-2.4) ng/mL Troponin I (0.000-0.034) ng/mL Urine Protein 1+ H (Negative) Urine Blood Trace H (Negative) Urine RBC 21 H (0-5) /hpf Urine WBC 11 H (0-5) /hpf Urine Mucus Rare H (None) /hpf 02/03/18 02/03/18 02/03/18 Range/Units 19:35 19:35 19:35 Hgb 12.8 L (13.0-17.5) gm/dL RDW 15.9 H (11.5-15.5) % Lymphocytes # 0.5 L (1.0-4.8) k/uL APTT 20.9 L (22.0-30.0) sec Carbon Dioxide 32 H (22-30) mmol/L BUN 43 H (9-20) mg/dL Creatinine 1.87 H (0.66-1.25) mg/dL POC Glucose (mg/dL) (75-99) mg/dL Phosphorus 5.2 H (2.5-4.5) mg/dL Total Creatine Kinase (55-170) U/L CK-MB (CK-2) (0.0-2.4) ng/mL Troponin I (0.000-0.034) ng/mL Urine Protein (Negative) Urine Blood (Negative) Urine RBC (0-5) /hpf Urine WBC (0-5) /hpf Urine Mucus (None) /hpf 02/03/18 02/03/18 02/03/18 Range/Units 19:35 19:42 22:15 Hgb (13.0-17.5) gm/dL RDW (11.5-15.5) % Lymphocytes # (1.0-4.8) k/uL APTT (22.0-30.0) sec Carbon Dioxide (22-30) mmol/L BUN (9-20) mg/dL Creatinine (0.66-1.25) mg/dL POC Glucose (mg/dL) 388 H 112 H (75-99) mg/dL Phosphorus (2.5-4.5) mg/dL Total Creatine Kinase 209 H (55-170) U/L CK-MB (CK-2) 6.8 H* (0.0-2.4) ng/mL Troponin I 0.123 H* (0.000-0.034) ng/mL Urine Protein (Negative) Urine Blood (Negative) Urine RBC (0-5) /hpf Urine WBC (0-5) /hpf Urine Mucus (None) /hpf 02/04/18 02/04/18 02/04/18 Range/Units 03:17 05:59 10:00 Hgb (13.0-17.5) gm/dL RDW (11.5-15.5) % Lymphocytes # (1.0-4.8) k/uL APTT (22.0-30.0) sec Carbon Dioxide (22-30) mmol/L BUN (9-20) mg/dL Creatinine (0.66-1.25) mg/dL POC Glucose (mg/dL) 103 H (75-99) mg/dL Phosphorus (2.5-4.5) mg/dL Total Creatine Kinase 184 H (55-170) U/L CK-MB (CK-2) 5.7 H* 4.5 H* (0.0-2.4) ng/mL Troponin I 0.085 H* 0.085 H* (0.000-0.034) ng/mL Urine Protein (Negative) Urine Blood (Negative) Urine RBC (0-5) /hpf Urine WBC (0-5) /hpf Urine Mucus (None) /hpf 02/04/18 Range/Units 11:49 Hgb (13.0-17.5) gm/dL RDW (11.5-15.5) % Lymphocytes # (1.0-4.8) k/uL APTT (22.0-30.0) sec Carbon Dioxide (22-30) mmol/L BUN (9-20) mg/dL Creatinine (0.66-1.25) mg/dL POC Glucose (mg/dL) 131 H (75-99) mg/dL Phosphorus (2.5-4.5) mg/dL Total Creatine Kinase (55-170) U/L CK-MB (CK-2) (0.0-2.4) ng/mL Troponin I (0.000-0.034) ng/mL Urine Protein (Negative) Urine Blood (Negative) Urine RBC (0-5) /hpf Urine WBC (0-5) /hpf Urine Mucus (None) /hpf Thrombosis Risk Factor Assmnt - Choose All That Apply Any of the Below Risk Factors Present?: Yes Each Factor Represents 1 point: Abnormal pulmonary function (COPD), Acute UT, Age 41-60 years, Medical pt on bed rest, Obesity (BMI >25) Other Risk Factors: Yes Thrombosis Risk Factor Assessment Total Risk Factor Score: 5 Thrombosis Risk Factor Assessment Level: High Risk Assessment and Plan Assessment: 1. Hypoglycemia: Probably attributed to her insulin dose and poor by mouth intake. I would adjust his insulin dose and change his Lantus dose to 65 units twice daily, NovoLog 50 units twice a day continue to monitor closely. Last A1c in September was 7.5. 2. Encephalopathy, attributed to hypoglycemia and lethargy due to lack of sleep as patient is not using CPAP at home. Mental status back to baseline. 3. Troponin elevation, most likely non-thrombotic troponin leak. Patient was seen and evaluated by cardiology. Echocardiogram ordered 4. Underlying congestive heart failure exacerbation, diastolic, patient is currently on IV Lasix. We will continue for 24 hours. 5. Type 2 diabetes mellitus, with poor compliance with his medication and diet 6. Chronic diabetic lower extremity ulcer now healing well with no evidence of infection. Continue Aquacel silver 7. Obstructive sleep apnea not using CPAP at home secondary to insurance issues. I would consult the child protective services social worker to help in that matter 8. Essential hypertension: Blood pressure well-controlled
--- NOTE | 2018-02-04 13:17 | CDI ---
Last Revision, September 2017 Documentation Clarification Form Date: 02/04/18 1314 From: Jazzy Peters RN, CCDS Admit Date: 02/03/2018 8:58:00 PM Patient Name: Tim Stokes Visit Number: [id number] ATTENTION: The Clinical Documentation Specialists (CDI) and [facility] Coding Staff appreciate your assistance in clarifying documentation. Please respond to the clarification below the line at the bottom and electronically sign. The CDI & [facility] Coding staff will review the response and follow-up if needed. Please note: Queries are made part of the Legal Health Record. If you have any questions, please contact the author of this message via ITS. Dr. Bender History/Risk Factors: DM, HTN 10/12/17 Patients baseline BUN/CR/GFR: 37/1.49/49 Clinical Indicators: 02/04 Cardiology Consult: "He has a known history of chronic kidney disease and on presentation his troponin was mildly elevated but that could be related to his baseline renal function." Current BUN/Cr/GFR: 43/1.87/40 Treatment: Lasix 60 mg Po QD No IVF Ordered In order to capture the severity of condition, please clarify if the condition signifies: Acute renal failure, Please specify etiology (if known): Cortical Necrosis Medullary Necrosis Tubular Necrosis Acute kidney injury Acute on chronic renal failure CKD Stage 1 GFR >90 CKD Stage 2 GFR 60-89 CKD Stage 3 GFR 30-59 CKD Stage 4 GFR 15-29 CKD Stage 5 GFR <15 Chronic renal failure/Chronic Kidney disease (CKD) please stage if known CKD Stage 1 GFR >90 CKD Stage 2 GFR 60-89 CKD Stage 3 GFR 30-59 CKD Stage 4 GFR 15-29 CKD Stage 5 GFR <15 ESRD Other, please specify Unable to determine Please continue to document in your progress notes and discharge summary in order to capture severity of illness and risk of mortality. Include clinical findings that support your diagnosis. Acute on chronic kidney disease stage III. Acute renal failure with tubular necrosis MTDD
[2018-02-04 16:38] LABS: Glucose,Whole Blood 127 mg/dL (75-99)
[2018-02-04 20:50] LABS: Glucose,Whole Blood 78 mg/dL (75-99)
[2018-02-04] MEDS ORDERED: DOXAZOSIN 4 MG TAB PO SCH (21:00)
[2018-02-04] MEDS ORDERED: ATORVASTATIN 20 MG TAB PO SCH (21:00)
[2018-02-04] MEDS ORDERED: ATORVASTATIN 40 MG TAB PO SCH (21:00)
[2018-02-04] MEDS ORDERED: TAMSULOSIN 0.4 MG CAP.ER.24H PO SCH (21:00)
[2018-02-04] MEDS ORDERED: HEPARIN SODIUM,PORCINE 5,000 UNIT/ML 1 ML VIAL IV STA (22:00)
[2018-02-04] MEDS: INSULIN DETEMIR 100 UNIT/ML 10 ML VIAL SQ SCH (22:02)
[2018-02-04] MEDS: HEPARIN SOD,PORK IN 0.45% NACL 25,000 UNIT in 0.45% NACL 1 500ML.BAG IV SCH (22:20)
[2018-02-05 04:26] LABS: Anisocytosis Slight; Basophils % (A) 1 %; Eosinophils # (A) 0.2 k/uL (0-0.7); Eosinophils % (A) 4 %; HCT 36.4 % (39.0-53.0); HGB 11.3 gm/dL (13.0-17.5); Hypochromasia Slight; Lymphocytes # (A) 1.3 k/uL (1.0-4.8); Lymphocytes % (A) 28 %; MCH 26.7 pg (25.0-35.0); MCV 86.2 fL (80.0-100.0); Mean Platelet Volume 7.2; Monocytes # (A) 0.4 k/uL (0-1.0); Monocytes % (A) 9 %; Neutrophils # (A) 2.6 k/uL (1.3-7.7); Neutrophils % (A) 56 %; Platelet Count 212 k/uL (150-450); RBC 4.22 m/uL (4.30-5.90); RDW 16.6 % (11.5-15.5); WBC 4.6 k/uL (3.8-10.6)
[2018-02-05 04:35] LABS: Albumin 3.7 g/dL (3.5-5.0); Calcium 8.6 mg/dL (8.4-10.2); Magnesium 2.4 mg/dL (1.6-2.3); Phosphorus 3.9 mg/dL (2.5-4.5); Potassium 4.4 mmol/L (3.5-5.1); Total Bilirubin 0.3 mg/dL (0.2-1.3); Total Protein 6.3 g/dL (6.3-8.2)
[2018-02-05 05:20] LABS: Glucose,Whole Blood 94 mg/dL (75-99)
[2018-02-05] MEDS: CARVEDILOL 12.5 MG TAB PO SCH (06:41)
[2018-02-05] MEDS ORDERED: HEPARIN SODIUM,PORCINE 5,000 UNIT/ML 1 ML VIAL IV STA ×2 (06:52→06:55)
[2018-02-05] MEDS: INSULIN ASPART 100 UNIT/ML 1 ML 10 ML VIAL SQ SCH ×4 (07:41→12:41)
--- NOTE | 2018-02-05 08:50 | PN ---
PROGRESS NOTE Mr. Stokes is a 53-year-old male with a history of hypertension, history of diabetes who presented with change of mental status and not feeling well. He had minimal elevation of the troponin. He is feeling well this morning. His breathing is stable. He is denying any chest pain. No dizziness. No palpitation. He denies any nausea. He continues to be on IV heparin, Lasix 40 mg IV q.12 hours, Lipitor 40 mg daily, Coreg 25 mg twice a day, doxazosin 8 mg daily, hydralazine 50 mg twice a day and isosorbide mononitrate 30 mg daily in addition to diclofenac. PHYSICAL EXAMINATION: Blood pressure 124/50 with the heart rate in the 60s. LUNGS: Clear. HEART: Regular rate and rhythm. S1, S2. No S3. No rub. ABDOMEN: Soft, obese, nontender. EXTREMITIES: With mild edema. LAB DATA: Lab data revealed BUN and creatinine 42 and 2.14. Potassium 4.4. Hemoglobin 11.3. His echocardiogram revealed preserved left ventricular size and systolic function. IMPRESSION: 1. Symptoms of dyspnea, most likely related to hypertension and obesity in physical deconditioning. No clear evidence of congestive heart failure. 2. Minimal elevation of troponin do not represent primary ischemic event. 3. Diabetes mellitus. 4. Renal failure. 5. Obstructive sleep apnea. RECOMMENDATION: From the cardiac standpoint, I will stop his IV heparin as well as IV Lasix and his diclofenac. Follow his renal function. Increase his level of activity and depending on his progress, further recommendation will be made. MMODL / IJN: [id number] /
[2018-02-05] MEDS: DULoxetine HCL 60 MG CAPSULE.DR PO SCH (08:51)
[2018-02-05] MEDS: ISOSORBIDE MONONITRATE ER 30 MG TAB.ER.24H PO SCH (08:51)
[2018-02-05] MEDS: FUROSEMIDE 40 MG TAB PO SCH ×2 (08:51→16:48)
[2018-02-05] MEDS: hydrALAZINE HCL 50 MG TAB PO SCH (08:51)
[2018-02-05] MEDS: buPROPion XL 300 MG TAB.ER.24H PO SCH (08:51)
[2018-02-05] MEDS: GABAPENTIN 300 MG CAP PO SCH ×2 (08:52→16:47)
[2018-02-05] MEDS: rOPINIRole HCL 4 MG TABLET PO SCH ×2 (08:52→16:48)
[2018-02-05] MEDS: INSULIN DETEMIR 100 UNIT/ML 10 ML VIAL SQ SCH (08:52)
[2018-02-05] MEDS: FLUTICASONE 50MCG/SPRAY NASAL 16GM EA NOSTRIL SCH (08:52)
[2018-02-05 09:53] VITALS: RESP 18
[2018-02-05 11:40] LABS: Glucose,Whole Blood 124 mg/dL (75-99)
[2018-02-05 13:29] VITALS: BP 132/77; PULSE 72; TEMP 97.3
--- NOTE | 2018-02-05 15:33 | P.DS ---
Providers Date of admission: 02/03/18 20:58 Expected date of discharge: 02/05/18 Attending physician: Selena Barfield Consults: 02/03/18 20:58 Consult Physician Urgent Consulting Provider: Jessica Marquez Consult Reason/Comments: nstemi Do you want consulting provider notified?: Yes Primary care physician: Ni Castillo Hospital Course: Discharge diagnosis 1. Hypoglycemia: Probably attributed to her insulin dose and poor by mouth intake. I would adjust his insulin dose and change his Lantus dose to 65 units twice daily, NovoLog 15 units 3 times a day continue to monitor closely. Last A1c in September was 7.5. 2. Encephalopathy, attributed to hypoglycemia and lethargy due to lack of sleep as patient is not using CPAP at home. Mental status back to baseline. 3. Troponin elevation, most likely non-thrombotic troponin leak. Patient was seen and evaluated by cardiology. Echocardiogram shows an EF of 55-60%. Minimal elevation of troponin did not represent primary ischemic event per cardiology 4. Underlying congestive heart failure exacerbation, diastolic, patient is currently on IV Lasix. We will continue for 24 hours. 5. Type 2 diabetes mellitus, with poor compliance with his medication and diet 6. Chronic diabetic lower extremity ulcer now healing well with no evidence of infection. Continue Aquacel silver 7. Obstructive sleep apnea not using CPAP at home secondary to insurance issues. Patient seen by director social welfare and director case. Resources have been given 8. Essential hypertension: Blood pressure well-controlled 9. Acute on chronic kidney disease, stage III. Patient's IV Lasix discontinued and cardiology place patient back on oral Lasix 10. Per cardiology symptoms of dyspnea, most likely related to hypertension and obesity and physical deconditioning. No clear evidence of congestive heart failure Hospital course This is a 53-year-old gentleman with past medical history noted below who presented to the emergency room with confusion and altered mental status. Patient was brought in by EMS. He is diabetic and is maintained on high doses of insulin at home. He was found to have a blood glucose of 60 on presentation and was given amp of D50 with significant improvement in his mentation. Computed tomography scan of the brain showed no acute findings. Patient said that recently he was more tired and sleepy throughout the day. He is known to have obstructive sleep apnea but said that he is not using his CPAP machine at home as he is unable to afford the co-pay. He said that he sleepy usually throughout the day. He admits to poor by mouth intake recently. He said that his blood sugars dropping multiple times and he did not have any sugar pill to take at home. He said also that he is unable to afford that either. Patient was noted to have an elevated troponin in the emergency room and was admitted to the telemetry floor. Patient himself denies any chest pain or shortness of breath. He was seen and Patient's insulin dose was adjusted during this admission. He's had no further episodes of hypoglycemia. His Lantus has been decreased to 65 units twice a day and NovoLog 15 units 3 times a day. Patient seen evaluated by cardiology. They did add Imdur 30 mg daily. They felt that there was no evidence of congestive heart failure. And patient was restarted on his oral Lasix. Creatinine has gone up to 2.14. Would recommend having BMP checked on Thursday. Patient has been educated that his kidney numbers have worsened. However, he wants to be discharged home. We'll have him follow up with his PCP on Thursday for BMP check. Also note that the diclofenac has been discontinued. I performed an examination of the patient and discussed their management with the physician Injection Operator. I have reviewed the Physician Injection Operator's notes and agree with the documented findings and plan of care Patient Condition at Discharge: Stable Plan - Discharge Summary Discharge Rx Participant: No New Discharge Prescriptions: New Isosorbide Mononitrate ER [Imdur] 30 mg PO DAILY #30 tab.er.24h Continue Carvedilol 25 mg PO BID Simvastatin [Zocor] 40 mg PO HS Fenofibrate 160 mg PO DAILY hydrALAZINE HCL 50 mg PO BID Gabapentin [Neurontin] 900 mg PO TID Albuterol Inhaler [Ventolin Hfa Inhaler] 2 puff INHALATION RT-Q6H PRN PRN Reason: Shortness Of Breath Insulin Lispro [humaLOG Kwikpen] See Protocol SQ AC-TID Doxazosin Mesylate 8 mg PO HS DULoxetine HCL [Duloxetine HCl] 60 mg PO DAILY Fluticasone Nasal [place] [Flonase Nasal [place]] 2 sprays EA NOSTRIL BID Tamsulosin HCl 0.4 mg PO HS buPROPion HCL [Wellbutrin XL] 300 mg PO DAILY Lidocaine 5% Oint [Xylocaine 5% Oint] 1 applic TOPICAL BID PRN PRN Reason: Pain ALPRAZolam [Xanax] 0.25 mg PO BID PRN PRN Reason: Severe Anxiety rOPINIRole HCL [Requip] 6 mg PO TID Furosemide [Lasix] 40 - 80 mg PO DAILY Aspirin [Children's Aspirin] 81 mg PO DAILY Changed Insulin Glargine,Hum.rec.anlog [Lantus Solostar] 65 unit SQ BID #0 Insulin Lispro [humaLOG Kwikpen] 15 unit SQ AC-TID #0 Discontinued Diclofenac Sodium [Voltaren Gel] 1 applic TOPICAL BID PRN PRN Reason: Pain Discharge Medication List Albuterol Inhaler [Ventolin Hfa Inhaler] 2 puff INHALATION RT-Q6H PRN 07/25/15 [ History] Carvedilol 25 mg PO BID 07/25/15 [History] Fenofibrate 160 mg PO DAILY 07/25/15 [History] Gabapentin [Neurontin] 900 mg PO TID 07/25/15 [History] Insulin Lispro [humaLOG Kwikpen] See Protocol SQ AC-TID 07/25/15 [History] Simvastatin [Zocor] 40 mg PO HS 07/25/15 [History] hydrALAZINE HCL 50 mg PO BID 07/25/15 [History] DULoxetine HCL [Duloxetine HCl] 60 mg PO DAILY 07/07/16 [History] Doxazosin Mesylate 8 mg PO HS 07/07/16 [History] Fluticasone Nasal [place] [Flonase Nasal [place]] 2 sprays EA NOSTRIL BID 07/07/16 [ History] Tamsulosin HCl 0.4 mg PO HS 07/07/16 [History] Lidocaine 5% Oint [Xylocaine 5% Oint] 1 applic TOPICAL BID PRN 09/06/17 [History ] buPROPion HCL [Wellbutrin XL] 300 mg PO DAILY 09/06/17 [History] ALPRAZolam [Xanax] 0.25 mg PO BID PRN 10/08/17 [History] rOPINIRole HCL [Requip] 6 mg PO TID 10/08/17 [History] Aspirin [Children's Aspirin] 81 mg PO DAILY 02/03/18 [History] Furosemide [Lasix] 40 - 80 mg PO DAILY 04/18/18 [History] Insulin Glargine,Hum.rec.anlog [Lantus Solostar] 65 unit SQ BID #0 02/05/18 [Rx] Insulin Lispro [humaLOG Kwikpen] 15 unit SQ AC-TID #0 02/05/18 [Rx] Isosorbide Mononitrate ER [Imdur] 30 mg PO DAILY #30 tab.er.24h 02/05/18 [Rx] Follow up Appointment(s)/Referral(s): Ni Castillo MD [Primary Care Provider] - 1-2 days Ambulatory/Diagnostic Orders: Basic Metabolic Panel [LAB.AMB] Location: Determined By Patient Patient Instructions/Handouts: Chest Pain (DC), Hypoglycemia in a Person with Diabetes (DC) Activity/Diet/Wound Care/Special Instructions: [facility] - [phone] Diet: diabetic, cardiac Activity:as tolerated Discharge Disposition: HOME WITH HOME HEALTH SERVICES
[2018-02-05 16:42] LABS: Glucose,Whole Blood 121 mg/dL (75-99)
[2018-02-05] MEDS ORDERED: ALBUTEROL NEBULIZED 2.5 MG/3 ML INHALATION SCH (23:57)
--- NOTE | 2018-02-11 17:05 | CDI ---
Last Revision, September 2017 Documentation Clarification Form Date: 02/11/18 From: Brigida Mitchell Phone: If you have a question regarding this query, please contact Daisy Rhodes at [phone] between 8am and 5pm. Admit Date: 02/03/2018 8:58:00 PM Patient Name: Tim Stokes Visit Number: [id number] Discharge Date: 02/05/18 ATTENTION: The Clinical Documentation Specialists (CDI) and [facility] Coding Staff appreciate your assistance in clarifying documentation. Please respond to the clarification below the line at the bottom and electronically sign. The CDI & [facility] Coding staff will review the response and follow-up if needed. Please note: Queries are made part of the Legal Health Record. If you have any questions, please contact the author of this message via ITS. Dr. Neyda Bender Encephalopathy is documented in the H&P and discharge summary. History/Risk factors: The patient has DM type II with hypoglycemia, Hypertension, CHF and chronic kidney disease. Clinical Indicators: Altered mental status, DM with hypoglycemia. CT/MRI Brain:No acute cranial hemorrhage or midline shift. There is mild diffuse age-related cerebral atrophy and mild to moderate nonspecific white matter changes most likely on basis of product of chronic small vessel ischemic change redemonstrated. No significant change from prior CT is clearly seen. In your professional opinion, can you please clarify the specific type of encephalopathy, if known? Hypertensive Encephalopathy Metabolic Encephalopathy Toxic Encephalopathy Indicate if any complications: Coma, other disease process? Indicate whether acute, sub-acute or chronic? Causal Condition: Alcoholism, Hepatitis, other disease process? Other, please specify Unable to determine MTDD
--- NOTE | 2018-02-16 08:45 | CDI ---
Last Revision, September 2017 Documentation Clarification Form Date: 02/16/18 From: Brigida Mitchell Phone: If you have a question regarding this query, please contact Daisy Rhodes at [phone] Admit Date: 02/03/2018 8:58:00 PM Patient Name: Tim Stokes Visit Number: [id number] Discharge Date: 02/05/18 ATTENTION: The Clinical Documentation Specialists (CDI) and [facility] Coding Staff appreciate your assistance in clarifying documentation. Please respond to the clarification below the line at the bottom and electronically sign. The CDI & [facility] Coding staff will review the response and follow-up if needed. Please note: Queries are made part of the Legal Health Record. If you have any questions, please contact the author of this message via ITS. Dr. Neyda Bender Encephalopathy is documented in the H&P and discharge summary. History/Risk factors: The patient has DM type II with hypoglycemia, Hypertension, CHF and chronic kidney disease. Clinical Indicators: Altered mental status, DM with hypoglycemia. CT/MRI Brain:No acute cranial hemorrhage or midline shift. There is mild diffuse age-related cerebral atrophy and mild to moderate nonspecific white matter changes most likely on basis of product of chronic small vessel ischemic change redemonstrated. No significant change from prior CT is clearly seen. In your professional opinion, can you please clarify the specific type of encephalopathy, if known? Hypertensive Encephalopathy Metabolic Encephalopathy Toxic Encephalopathy Indicate if any complications: Coma, other disease process? Indicate whether acute, sub-acute or chronic? Causal Condition: Alcoholism, Hepatitis, other disease process? Other, please specify Unable to determine Metabolic Encephalopathy MTDD
== END 2018-02-05 17:22 | disposition home health service (06) | DRG 637 ==
LOC: EC 17:57 → 6SEL 20:58
PROVIDERS: ADMIT Internal Medicine; ATTEND Internal Medicine
PROC: 5A09357 Assistance with Respiratory Ventilation, Less than 24 Consecutive Hours, Continuous Positive Airway Pressure (ICD-10-PCS; principal; 2018-02-03)
DX: E11.649 Type 2 diabetes mellitus with hypoglycemia without coma (principal); I50.33 Acute on chronic diastolic (congestive) heart failure; G93.41 Metabolic encephalopathy; L97.829 Non-pressure chronic ulcer of other part of left lower leg with unspecified severity; I13.0 Hypertensive heart and chronic kidney disease with heart failure and stage 1 through stage 4 chronic kidney disease, or unspecified chronic kidney disease; Z68.43 Body mass index [BMI] 50.0-59.9, adult; E11.622 Type 2 diabetes mellitus with other skin ulcer; N17.9 Acute kidney failure, unspecified; E11.22 Type 2 diabetes mellitus with diabetic chronic kidney disease; N18.3 Chronic kidney disease, stage 3 (moderate); E11.40 Type 2 diabetes mellitus with diabetic neuropathy, unspecified; R07.89 Other chest pain; R77.8 Other specified abnormalities of plasma proteins; E66.01 Morbid (severe) obesity due to excess calories; E78.5 Hyperlipidemia, unspecified; F32.9 Major depressive disorder, single episode, unspecified; F41.0 Panic disorder [episodic paroxysmal anxiety]; G25.81 Restless legs syndrome; G47.33 Obstructive sleep apnea (adult) (pediatric); J44.9 Chronic obstructive pulmonary disease, unspecified; H93.19 Tinnitus, unspecified ear; M19.90 Unspecified osteoarthritis, unspecified site; R01.1 Cardiac murmur, unspecified; G89.29 Other chronic pain; M54.5 Low back pain; Z79.4 Long term (current) use of insulin; Z79.82 Long term (current) use of aspirin; Z79.899 Other long term (current) drug therapy; Z91.19 Patient's noncompliance with other medical treatment and regimen; Z91.14 Patient's other noncompliance with medication regimen; Z87.891 Personal history of nicotine dependence; Z80.7 Family history of other malignant neoplasms of lymphoid, hematopoietic and related tissues; Z84.89 Family history of other specified conditions; Z90.49 Acquired absence of other specified parts of digestive tract
CPT/HCPCS: 36415; 70450; 71046; 80053; 80061; 80306; 81001; 82550; 82553; 83735; 83880; 84100; 84443; 84484; 85025; 85049; 85610; 85730; 93005; 93306; 96374; 99285

== ENCOUNTER 2018-11-04 14:10 | Inpatient (IN) | payer MEDICARE, OTHER ==
[2018-11-04] MEDS ORDERED: SUCCINYLCHOLINE CHLORIDE VIAL 200 MG/10 ML VIAL IV STA ×2 (14:15→14:22)
[2018-11-04] MEDS ORDERED: MIDAZOLAM 1 MG/ML 5 ML VIAL IV STA ×2 (14:15→14:22)
[2018-11-04] MEDS ORDERED: PROPOFOL 1,000 MG in EMPTY BAG 1 BAG IV ONE ×2 (14:40→16:33)
[2018-11-04 14:45] LABS: Glucose,Whole Blood 73 mg/dL (75-99)
--- NOTE | 2018-11-04 14:46 | ED ---
General Adult HPI - General Chief complaint: Altered Mental Status Stated complaint: Diabetic Time Seen by Provider: 11/04/18 14:10 Source: EMS, RN notes reviewed Mode of arrival: EMS - History of Present Illness Initial comments: This a 53-year-old male who presents emergency Department via EMS. EMS was called at scene because the patient was noncoherent and combative at the scene. When they arrived the patient's blood sugar was 38 and gave him an amp of dextrose patient's blood sugar was repeated and it was within normal range at that time. Patient remained combative behavior patient 10 of Valium and that did not seem to calm patient down the whole ride in he was unresponsive and combative. No other history was available at this time by the time EMS arrived at the emergency department he had been combative for approximately 15 minutes. Patient's sugar on arrival was 77 - Related Data Home Medications Medication Instructions Recorded Confirmed Albuterol Inhaler [Ventolin Hfa 2 puff INHALATION RT-Q6H PRN 07/25/15 02/03/18 Inhaler] Carvedilol 25 mg PO BID 07/25/15 02/03/18 Fenofibrate 160 mg PO DAILY 07/25/15 02/03/18 Gabapentin [Neurontin] 900 mg PO TID 07/25/15 02/03/18 Insulin Lispro [humaLOG Kwikpen] See Protocol SQ AC-TID 07/25/15 02/03/18 Simvastatin [Zocor] 40 mg PO HS 07/25/15 02/03/18 hydrALAZINE HCL 50 mg PO BID 07/25/15 02/03/18 DULoxetine HCL [Duloxetine HCl] 60 mg PO DAILY 07/07/16 02/03/18 Doxazosin Mesylate 8 mg PO HS 07/07/16 02/03/18 Fluticasone Nasal [place] [Flonase 2 sprays EA NOSTRIL BID 07/07/16 02/03/18 Nasal [place]] Tamsulosin HCl 0.4 mg PO HS 07/07/16 02/03/18 Lidocaine 5% Oint [Xylocaine 5% 1 applic TOPICAL BID PRN 09/06/17 02/03/18 Oint] buPROPion HCL [Wellbutrin XL] 300 mg PO DAILY 09/06/17 02/03/18 ALPRAZolam [Xanax] 0.25 mg PO BID PRN 10/08/17 02/03/18 rOPINIRole HCL [Requip] 6 mg PO TID 10/08/17 02/03/18 Aspirin [Children's Aspirin] 81 mg PO DAILY 02/03/18 02/03/18 Previous Rx's Medication Instructions Recorded Furosemide [Lasix] 40 mg PO BID #60 tablet 02/05/18 Insulin Glargine,Hum.rec.anlog 65 unit SQ BID #0 02/05/18 [Lantus Solostar] Insulin Lispro [humaLOG Kwikpen] 15 unit SQ AC-TID #0 02/05/18 Isosorbide Mononitrate ER [Imdur] 30 mg PO DAILY #30 tab.er.24h 02/05/18 Allergies Allergy/AdvReac Type Severity Reaction Status Date / Time environmental AdvReac Unknown Uncoded 11/27/17 08:20 Review of Systems ROS Statement: Those systems with pertinent positive or pertinent negative responses have been documented in the HPI. ROS Other: All systems not noted in ROS Statement are negative. Past Medical History Past Medical History: Heart Failure, COPD, Diabetes Mellitus, Hyperlipidemia, Hypertension, Sleep Apnea/CPAP/BIPAP Additional Past Medical History / Comment(s): occasional numbness on left side, arthritis ,no cpap used"i couldn't afford it sent it back", left leg wound r/t trauma from fall, tinnitus, neuropathy. rls History of Any Multi-Drug Resistant Organisms: None Reported Past Surgical History: Cholecystectomy Additional Past Surgical History / Comment(s): colonoscopy Past Anesthesia/Blood Transfusion Reactions: No Reported Reaction Past Psychological History: Bipolar, Depression, Panic Disorder Smoking Status: Former smoker Past Alcohol Use History: None Reported Past Drug Use History: None Reported - Past Family History Father Family Medical History: Cancer Additional Family Medical History / Comment(s): lymphoma cancer Mother Additional Family Medical History / Comment(s): alzhemimers, General Exam - General Exam Comments Initial Comments: GENERAL: Patient is well-developed and well-nourished. Patient is nontoxic and well- hydrated and combative and not responding to any verbal stimuli and difficult to assess if he responds any painful stimuli because he is thrashing around. ENT: Neck is soft and supple. No significant lymphadenopathy is noted. Oropharynx is clear. Moist mucous membranes. Patient has multiple small lacerations on the tongue indicative of biting. EYES: The sclera were anicteric and conjunctiva were pink and moist. Extraocular movements were intact and pupils were equal round and reactive to light. Eyelids were unremarkable. PULMONARY: Breath sounds heard bilaterally however difficult to assess any significant abnormality secondary to the patient thrashing around and making noise. CARDIOVASCULAR: There is a regular rate and rhythm without any murmurs gallops or rubs. ABDOMEN: Patient is morbidly obese abdomen is distended. SKIN: Skin is clear with no lesions or rashes and otherwise unremarkable. NEUROLOGIC: Patient is not alert or oriented. MUSCULOSKELETAL: Patient's moving all 4 extremities but unable to assess strength. LYMPHATICS: No significant lymphadenopathy is noted PSYCHIATRIC: Unable to assess Course Vital Signs 11/04/18 11/04/18 11/04/18 14:20 14:55 15:00 Temperature Pulse Rate 107 H 97 96 Respiratory 26 H 18 18 Rate Blood Pressure 222/112 206/105 199/89 O2 Sat by Pulse 99 100 100 Oximetry 11/04/18 11/04/18 11/04/18 15:25 15:30 15:54 Temperature 98.4 F Pulse Rate 90 89 Respiratory 16 18 Rate Blood Pressure 167/75 201/96 O2 Sat by Pulse 100 100 Oximetry 11/04/18 11/04/18 16:04 16:40 Temperature Pulse Rate 88 Respiratory 18 Rate Blood Pressure 191/98 186/90 O2 Sat by Pulse 100 Oximetry Procedures - Intubation Time Out Performed: Yes Sedative: Versed Paralytic: Succinylcholine Laryngoscope: Lees Size: 3 ET Tube Size: 8 ET Tube Uncuffed: Yes Tube Secured Location: teeth Tube Placement Confirmation: visualized tube passing through cords, equal breath sounds bilaterally, no breath sounds over epigastrium, confirmation by capnometry Patient Tolerated Procedure: well Intubation Complications: none Medical Decision Making - Medical Decision Making EKG shows a normal sinus rhythm at 101 bpm TN interval is 248 QRSs 104 QT interval 320 QTC is 425. EKG shows no ST segment elevation or depression or T wave abnormalities are noted Upon arrival the patient was so combative we were unable to even get vital so at this point in time it didn't sound like he may have aspirated as well so we intubated the patient and put him on propofol and proceeded with the workup. CT of the brain shows no acute abnormality. CT of the C-spine shows no acute abnormality. Chest x-ray shows pneumonia and the left lower lung. I spoke with Dr. Barfield admit the patient admitted the patient wrote admitting orders I consulted critical care management sent the patient to the ICU. I spoke with Dr. Agustin he agreed to accept the patient in ICU. - Lab Data Result diagrams: 11/04/18 14:50 11/04/18 14:50 Lab Results 11/04/18 11/04/18 11/04/18 Range/Units 14:13 14:50 14:50 WBC (3.8-10.6) k/uL RBC (4.30-5.90) m/uL Hgb (13.0-17.5) gm/dL Hct (39.0-53.0) % MCV (80.0-100.0) fL MCH (25.0-35.0) pg MCHC (31.0-37.0) g/dL RDW (11.5-15.5) % Plt Count (150-450) k/uL Neutrophils % % Lymphocytes % % Monocytes % % Eosinophils % % Basophils % % Neutrophils # (1.3-7.7) k/uL Lymphocytes # (1.0-4.8) k/uL Monocytes # (0-1.0) k/uL Eosinophils # (0-0.7) k/uL Basophils # (0-0.2) k/uL PT (9.0-12.0) sec INR (<1.2) APTT (22.0-30.0) sec Sample Site ABG pH (7.35-7.45) ABG pCO2 (35-45) mmHg ABG pO2 (83-108) mmHg ABG HCO3 (21-25) mmol/L ABG Total CO2 (19-24) mmol/L ABG O2 Saturation (94-97) % ABG Base Excess mmol/L Meek Test FiO2 % Sodium (137-145) mmol/L Potassium (3.5-5.1) mmol/L Chloride (98-107) mmol/L Carbon Dioxide (22-30) mmol/L Anion Gap mmol/L BUN (9-20) mg/dL Creatinine (0.66-1.25) mg/dL Est GFR (CKD-EPI)AfAm (>60 ml/min/1.73 sqM) Est GFR (CKD-EPI)NonAf (>60 ml/min/1.73 sqM) Glucose (74-99) mg/dL POC Glucose (mg/dL) 73 L (75-99) mg/dL POC Glu [employer] Shrinker ID Glo Kevin Plasma Lactic Acid Young (0.7-2.0) mmol/L Calcium (8.4-10.2) mg/dL Total Bilirubin (0.2-1.3) mg/dL AST (17-59) U/L ALT (21-72) U/L Alkaline Phosphatase (38-126) U/L Ammonia 55 H (<30) umol/L Total Creatine Kinase 1282 H* (55-170) U/L CK-MB (CK-2) 21.2 H (0.0-2.4) ng/mL CK-MB (CK-2) Rel Index 1.7 Troponin I <0.012 (0.000-0.034) ng/mL Total Protein (6.3-8.2) g/dL Albumin (3.5-5.0) g/dL Urine Color Urine Appearance (Clear) Urine pH (5.0-8.0) Ur Specific [place] (1.001-1.035) Urine Protein (Negative) Urine Glucose (UA) (Negative) Urine Ketones (Negative) Urine Blood (Negative) Urine Nitrite (Negative) Urine Bilirubin (Negative) Urine Urobilinogen (<2.0) mg/dL Ur Leukocyte Esterase (Negative) Urine RBC (0-5) /hpf Urine WBC (0-5) /hpf Urine Bacteria (None) /hpf Urine Opiates Screen (NotDetected) Ur Oxycodone Screen (NotDetected) Urine Methadone Screen (NotDetected) Ur Propoxyphene Screen (NotDetected) Ur Barbiturates Screen (NotDetected) U Tricyclic Antidepress (NotDetected) Ur Phencyclidine Scrn (NotDetected) Ur Amphetamines Screen (NotDetected) U Methamphetamines Scrn (NotDetected) U Benzodiazepines Scrn (NotDetected) Urine Cocaine Screen (NotDetected) U Marijuana (THC) Screen (NotDetected) 11/04/18 11/04/18 11/04/18 Range/Units 14:50 14:50 14:50 WBC 15.4 H (3.8-10.6) k/uL RBC 5.39 (4.30-5.90) m/uL Hgb 16.0 (13.0-17.5) gm/dL Hct 49.9 (39.0-53.0) % MCV 92.5 (80.0-100.0) fL MCH 29.7 (25.0-35.0) pg MCHC 32.1 (31.0-37.0) g/dL RDW 13.5 (11.5-15.5) % Plt Count 276 (150-450) k/uL Neutrophils % 92 % Lymphocytes % 4 % Monocytes % 3 % Eosinophils % 1 % Basophils % 0 % Neutrophils # 14.1 H (1.3-7.7) k/uL Lymphocytes # 0.6 L (1.0-4.8) k/uL Monocytes # 0.5 (0-1.0) k/uL Eosinophils # 0.1 (0-0.7) k/uL Basophils # 0.0 (0-0.2) k/uL PT (9.0-12.0) sec INR (<1.2) APTT (22.0-30.0) sec Sample Site ABG pH (7.35-7.45) ABG pCO2 (35-45) mmHg ABG pO2 (83-108) mmHg ABG HCO3 (21-25) mmol/L ABG Total CO2 (19-24) mmol/L ABG O2 Saturation (94-97) % ABG Base Excess mmol/L Meek Test FiO2 % Sodium 138 (137-145) mmol/L Potassium 5.4 H (3.5-5.1) mmol/L Chloride 102 (98-107) mmol/L Carbon Dioxide 26 (22-30) mmol/L Anion Gap 10 mmol/L BUN 26 H (9-20) mg/dL Creatinine 1.19 (0.66-1.25) mg/dL Est GFR (CKD-EPI)AfAm 80 (>60 ml/min/1.73 sqM) Est GFR (CKD-EPI)NonAf 69 (>60 ml/min/1.73 sqM) Glucose 70 L (74-99) mg/dL POC Glucose (mg/dL) (75-99) mg/dL POC Glu [employer]rinker ID Plasma Lactic Acid Young (0.7-2.0) mmol/L Calcium 9.0 (8.4-10.2) mg/dL Total Bilirubin 0.7 (0.2-1.3) mg/dL AST 77 H (17-59) U/L ALT 51 (21-72) U/L Alkaline Phosphatase 55 (38-126) U/L Ammonia (<30) umol/L Total Creatine Kinase (55-170) U/L CK-MB (CK-2) (0.0-2.4) ng/mL CK-MB (CK-2) Rel Index Troponin I (0.000-0.034) ng/mL Total Protein 7.9 (6.3-8.2) g/dL Albumin 4.4 (3.5-5.0) g/dL Urine Color Yellow Urine Appearance Clear (Clear) Urine pH 6.5 (5.0-8.0) Ur Specific [place] 1.013 (1.001-1.035) Urine Protein 3+ H (Negative) Urine Glucose (UA) Negative (Negative) Urine Ketones Negative (Negative) Urine Blood Small H (Negative) Urine Nitrite Negative (Negative) Urine Bilirubin Negative (Negative) Urine Urobilinogen <2.0 (<2.0) mg/dL Ur Leukocyte Esterase Negative (Negative) Urine RBC 3 (0-5) /hpf Urine WBC 1 (0-5) /hpf Urine Bacteria Rare H (None) /hpf Urine Opiates Screen Not Detected (NotDetected) Ur Oxycodone Screen Not Detected (NotDetected) Urine Methadone Screen Not Detected (NotDetected) Ur Propoxyphene Screen Not Detected (NotDetected) Ur Barbiturates Screen Not Detected (NotDetected) U Tricyclic Antidepress Not Detected (NotDetected) Ur Phencyclidine Scrn Not Detected (NotDetected) Ur Amphetamines Screen Not Detected (NotDetected) U Methamphetamines Scrn Not Detected (NotDetected) U Benzodiazepines Scrn Not Detected (NotDetected) Urine Cocaine Screen Not Detected (NotDetected) U Marijuana (THC) Screen Not Detected (NotDetected) 11/04/18 11/04/18 11/04/18 Range/Units 14:50 14:50 16:20 WBC (3.8-10.6) k/uL RBC (4.30-5.90) m/uL Hgb (13.0-17.5) gm/dL Hct (39.0-53.0) % MCV (80.0-100.0) fL MCH (25.0-35.0) pg MCHC (31.0-37.0) g/dL RDW (11.5-15.5) % Plt Count (150-450) k/uL Neutrophils % % Lymphocytes % % Monocytes % % Eosinophils % % Basophils % % Neutrophils # (1.3-7.7) k/uL Lymphocytes # (1.0-4.8) k/uL Monocytes # (0-1.0) k/uL Eosinophils # (0-0.7) k/uL Basophils # (0-0.2) k/uL PT 10.1 (9.0-12.0) sec INR 0.9 (<1.2) APTT 20.9 L (22.0-30.0) sec Sample Site Left Radial ABG pH 7.34 L (7.35-7.45) ABG pCO2 48 H (35-45) mmHg ABG pO2 227 H (83-108) mmHg ABG HCO3 26 H (21-25) mmol/L ABG Total CO2 28 H (19-24) mmol/L ABG O2 Saturation 99.7 H (94-97) % ABG Base Excess 0.5 mmol/L Meek Test Yes FiO2 100 % Sodium (137-145) mmol/L Potassium (3.5-5.1) mmol/L Chloride (98-107) mmol/L Carbon Dioxide (22-30) mmol/L Anion Gap mmol/L BUN (9-20) mg/dL Creatinine (0.66-1.25) mg/dL Est GFR (CKD-EPI)AfAm (>60 ml/min/1.73 sqM) Est GFR (CKD-EPI)NonAf (>60 ml/min/1.73 sqM) Glucose (74-99) mg/dL POC Glucose (mg/dL) (75-99) mg/dL POC Glu [employer] Shrinker ID Plasma Lactic Acid Young 1.7 (0.7-2.0) mmol/L Calcium (8.4-10.2) mg/dL Total Bilirubin (0.2-1.3) mg/dL AST (17-59) U/L ALT (21-72) U/L Alkaline Phosphatase (38-126) U/L Ammonia (<30) umol/L Total Creatine Kinase (55-170) U/L CK-MB (CK-2) (0.0-2.4) ng/mL CK-MB (CK-2) Rel Index Troponin I (0.000-0.034) ng/mL Total Protein (6.3-8.2) g/dL Albumin (3.5-5.0) g/dL Urine Color Urine Appearance (Clear) Urine pH (5.0-8.0) Ur Specific [place] (1.001-1.035) Urine Protein (Negative) Urine Glucose (UA) (Negative) Urine Ketones (Negative) Urine Blood (Negative) Urine Nitrite (Negative) Urine Bilirubin (Negative) Urine Urobilinogen (<2.0) mg/dL Ur Leukocyte Esterase (Negative) Urine RBC (0-5) /hpf Urine WBC (0-5) /hpf Urine Bacteria (None) /hpf Urine Opiates Screen (NotDetected) Ur Oxycodone Screen (NotDetected) Urine Methadone Screen (NotDetected) Ur Propoxyphene Screen (NotDetected) Ur Barbiturates Screen (NotDetected) U Tricyclic Antidepress (NotDetected) Ur Phencyclidine Scrn (NotDetected) Ur Amphetamines Screen (NotDetected) U Methamphetamines Scrn (NotDetected) U Benzodiazepines Scrn (NotDetected) Urine Cocaine Screen (NotDetected) U Marijuana (THC) Screen (NotDetected) Critical Care Time Critical Care Time: Yes Total Critical Care Time: 35 Disposition Clinical Impression: Altered mental status, Pneumonia, Sepsis, Tongue laceration, Hypertension, Hypoglycemia Disposition: ADMITTED IP TO THIS HOSP Referrals: Ni Castillo MD [Primary Care Provider] - 1-2 days Time of Disposition: 16:45
[2018-11-04 15:02] LABS: Basophils % (A) 0 %; Eosinophils # (A) 0.1 k/uL (0-0.7); Eosinophils % (A) 1 %; HCT 49.9 % (39.0-53.0); Lymphocytes # (A) 0.6 k/uL (1.0-4.8); Lymphocytes % (A) 4 %; MCH 29.7 pg (25.0-35.0); MCHC 32.1 g/dL (31.0-37.0); MCV 92.5 fL (80.0-100.0); Mean Platelet Volume 6.6; Monocytes # (A) 0.5 k/uL (0-1.0); Monocytes % (A) 3 %; Neutrophils # (A) 14.1 k/uL (1.3-7.7); Neutrophils % (A) 92 %; Platelet Count 276 k/uL (150-450); RBC 5.39 m/uL (4.30-5.90); RDW 13.5 % (11.5-15.5); WBC 15.4 k/uL (3.8-10.6)
[2018-11-04 15:11] LABS: Appearance,Urine Clear (Clear); Bacteria,Urine Rare /hpf; Bilirubin,Urine Negative (Negative); Blood,Urine Small (Negative); Color,Urine Yellow; Glucose,Urine (UA) Negative (Negative); Ketones,Urine Negative (Negative); Leukocyte Esterase,Urine Negative (Negative); Nitrite,Urine Negative (Negative); PH, Urine 6.5 (5.0-8.0); Protein,Urine 3+ (Negative); RBC,Urine 3 /hpf (0-5); Specific Gravity,Urine 1.013 (1.001-1.035); Urobilinogen,Urine <2.0 mg/dL (<2.0); WBC,Urine 1 /hpf (0-5)
[2018-11-04 15:14] LABS: Albumin 4.4 g/dL (3.5-5.0); Potassium 5.4 mmol/L (3.5-5.1); Total Bilirubin 0.7 mg/dL (0.2-1.3); Total Protein 7.9 g/dL (6.3-8.2)
[2018-11-04 15:24] LABS: INR 0.9 (<1.2); Prothrombin Time 10.1 sec (9.0-12.0)
[2018-11-04 15:27] LABS: Amphetamine Screen,Urine Not Detected (NotDetected); Barbiturate Screen,Urine Not Detected (NotDetected); Benzodiazepines Screen,Urine Not Detected (NotDetected); Cocaine Screen,Urine Not Detected (NotDetected); Methadone Screen, Urine Not Detected (NotDetected); Opiate Screen,Urine Not Detected (NotDetected); Oxycodone Screen, Urine Not Detected (NotDetected); Partial Thromboplastin Time 20.9 sec (22.0-30.0); Phencyclidine Screen,Urine Not Detected (NotDetected); Tricyclic Antidepressant,Urine Not Detected (NotDetected); Urn Cannabinoid Scrn Not Detected (NotDetected)
[2018-11-04 15:35] LABS: Creatine Kinase MB 21.2 ng/mL (0.0-2.4); Troponin I <0.012 ng/mL (0.000-0.034)
[2018-11-04 15:38] LABS: Creatine Kinase 1282 U/L (55-170)
--- NOTE | 2018-11-04 15:44 | XR ---
EXAMINATION TYPE: XR chest 1V portable DATE OF EXAM: 11/04/2018 Comparison: 02/03/2018 Clinical History: 53-year-old male confusion, altered mental status Findings: ET tube tip is at the level of the medial clavicular heads. NG tube courses below the diaphragm. The tip is beyond the field of view. Heart is enlarged. Lordotic positioning limits assessment. There is focal patchy left mid and lower lung opacity. No sizable effusion is seen. Impression: 1. ET tube tip at the level of the medial clavicular heads which is acceptable. 2. Cardiomegaly. 3. Patchy opacity left mid and lower lung. Early pneumonia not excluded.
--- NOTE | 2018-11-04 15:50 | CT ---
EXAMINATION TYPE: CT brain cspine wo con DATE OF EXAM: 11/04/2018 COMPARISON: Prior CT brain 02/03/2018 HISTORY: AMS UNRESPONSIVE CT DLP: 5174 mGycm Automated exposure control for dose reduction was used. TECHNIQUE: CT scan of the head and cervical spine are performed without contrast. FINDINGS: There is no acute intracranial hemorrhage, mass effect, or midline shift identified. The ventricles and sulci are within normal limits in size. The globes are intact and the visualized sin uses are remarkable for inflammatory change in the ethmoid air cells. Endotracheal and NG tube tube a re in place. Additional device present via the left-sided the mouth, curvilinear device is noted next to the tongue. Incidental dentigerous cyst present on the right extending to the inferior right maxi llary sinus. Cervical spine is visualized in its entirety from C1 through upper thoracic levels and demonstrates s atisfactory alignment without evidence of acute fracture or dislocation. Prevertebral soft tissue ap pears within normal limits. The C1-C2 articulation is unremarkable. Question prominence of the christianson sverse aorta. Apical airspace disease present right upper lobe is incompletely evaluated. IMPRESSION: 1. There is no acute fracture or dislocation evident in the cervical spine. 2. No acute intracranial hemorrhage, mass effect, or midline shift is seen. 3. Additional findings above, possible right upper lobe pneumonia, cannot exclude thoracic aortic ane urysm.
[2018-11-04] MEDS ORDERED: hydrALAZINE HCL 20 MG/ML 1 ML VIAL IVP STA ×2 (15:57→16:22)
[2018-11-04] MEDS ORDERED: SODIUM CHLORIDE 0.9% 1,000 ML IV STA (15:58)
[2018-11-04 16:26] LABS: ABG Base Excess 0.5 mmol/L; ABG HCO3 26 mmol/L (21-25); ABG Oxygen Saturation 99.7 % (94-97); ABG PCO2 48 mmHg (35-45); ABG PH 7.34 (7.35-7.45); ABG PO2 227 mmHg (83-108); ABG TCO2 28 mmol/L (19-24)
[2018-11-04] MEDS ORDERED: NALOXONE 0.4 MG/ML 1 ML VIAL IV PRN (16:46)
[2018-11-04] MEDS ORDERED: DEXTROSE 50%-WATER 50 ML SYRINGE IVP STA (17:37)
[2018-11-04 17:38] LABS: Glucose,Whole Blood 55 mg/dL (75-99)
[2018-11-04 17:50] LABS: Glucose,Whole Blood 107 mg/dL (75-99)
--- NOTE | 2018-11-04 18:36 | P.CNPUL ---
History of Present Illness Consult date: 11/04/18 Chief complaint: Altered mental status History of present illness: This is a 53-year-old male patient was brought into the intensive care unit after being intubated in the emergency department. The patient was brought into the emergency department after being found unresponsive at home. The patient was confused and altered and EMS came to the scene and found the patient to be profoundly hypoglycemic with a blood sugar of 38. He was given D50 and he was brought in to the hospital where he became agitated and combative and altered And the patient was given Valium and subsequently was intubated and placed on a mechanical ventilator. CAT scan of the brain was done and it showed no acute abnormalities. No seizure activity was noted. The patient had an elevated CPK level. An EGD, the patient had an EKG that showed no acute abnormalities. His cardiac rhythm was sinus. He had a chest x-ray post intubation that showed questionable pneumonia in the left lower lobe. ETT was in a good location. Computed tomography scan of the C-spine showed no acute abnormalities and computed tomography scan of the brain showed no acute abnormalities. The blood work showed a white cell count of 15.4. Post intubation blood pressure with a pH of 7.34 with a pCO2 of 48 and pO2 of 127 and this was done and FiO2 of 100%. The blood work showed a potassium level of 5.4. Catheter was at 1.1. CPK was 1282. UA was positive for +3 protein and the urine drug screen was negative. Note that his initial blood sugar was 73 on the Accu-Chek as checked in the emergency department. No reported seizure activity. Currently, the patient assist-control mode at the rate of 16 with a tidal volume of 600 and FiO2 of 50% and a PEEP of 5. He has a right antecubital and left hand IV access. Producing adequate amount of urine output in the Valenzuela catheter in place. Upon reviewing the records, this patient is morbidly obese. The patient has history of obstructive sleep apnea. He has not been compliant to CPAP therapy. 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 He has hypertension. His history of chronic stage III kidney disease. He has been admitted in the past for a similar episodes of hypoglycemia. Desires attributed to his insulin dose and his noncompliance to his oral intake. Back then the patient was taken high dose of Lantus insulin addition to NovoLog with meals. His HbA1c was elevated. This is indicated for compliancy with diabetic management. He has CHF which is diastolic in nature. Currently the patient is in the intensive care unit. The patient sedated intubated on a mechanical ventilator. He is on no pressors. Hemodynamically stable. He was given another D50 water and the ICU for blood sugar of 55. The patient is currently on no a tetanus fluid and I'm recommending D5 half-normal saline at the rate of 75 mL's an hour with close monitoring of his blood sugar. Reviewed his outpatient medication. He has been treated for BPH and hyperlipidemia and neuropathy. Review of Systems ROS unobtainable: due to endotracheal tube Past Medical History Past Medical History: Heart Failure, COPD, Diabetes Mellitus, Hyperlipidemia, Hypertension, Sleep Apnea/CPAP/BIPAP Additional Past Medical History / Comment(s): Morbid obesity BMI 40.7, obstructive sleep apnea, CHF with diastolic dysfunction, diabetes mellitus, hypertension, hyperlipidemia, hypothyroidism, BPH, peripheral neuropathy, chronic renal failure stage III kidney disease, poor compliance with medical management and diabetic management of the patient has had multiple episodes of hypoglycemia in the past. He has also had trauma and wound to his left lower extremity, chronic tinnitus, gait dysfunction, osteoarthritis History of Any Multi-Drug Resistant Organisms: None Reported Past Surgical History: Cholecystectomy Additional Past Surgical History / Comment(s): colonoscopy Past Anesthesia/Blood Transfusion Reactions: No Reported Reaction Past Psychological History: Bipolar, Depression, Panic Disorder Smoking Status: Former smoker Past Alcohol Use History: None Reported Past Drug Use History: None Reported - Past Family History Father Family Medical History: Cancer Additional Family Medical History / Comment(s): lymphoma cancer Mother Additional Family Medical History / Comment(s): alzhemimers, Medications and Allergies Home Medications Medication Instructions Recorded Confirmed Type Albuterol Inhaler [Ventolin Hfa 2 puff INHALATION RT-QID PRN 07/25/15 11/04/18 History Inhaler] Carvedilol 25 mg PO BID 07/25/15 11/04/18 History Fenofibrate 160 mg PO DAILY 07/25/15 11/04/18 History Gabapentin [Neurontin] 900 mg PO TID 07/25/15 11/04/18 History Insulin Lispro [humaLOG Kwikpen] 40 units SQ AC-TID 07/25/15 11/04/18 History Simvastatin [Zocor] 40 mg PO HS 07/25/15 11/04/18 History DULoxetine HCL [Duloxetine HCl] 60 mg PO DAILY 07/07/16 11/04/18 History Doxazosin Mesylate 8 mg PO HS 07/07/16 11/04/18 History Fluticasone Nasal [place] [Flonase 2 sprays EA NOSTRIL BID 07/07/16 11/04/18 History Nasal [place]] Tamsulosin HCl 0.8 mg PO HS 07/07/16 11/04/18 History buPROPion HCL [Wellbutrin XL] 300 mg PO DAILY 09/06/17 11/04/18 History rOPINIRole HCL [Requip] 6 mg PO TID 10/08/17 11/04/18 History Aspirin [Children's Aspirin] 81 mg PO DAILY 02/03/18 11/04/18 History Furosemide [Lasix] 40 mg PO BID #60 tablet 02/05/18 11/04/18 Rx Isosorbide Mononitrate ER [Imdur] 30 mg PO DAILY #30 tab.er.24h 02/05/18 Rx Diclofenac Sodium Gel [Voltaren 2 gm TOPICAL BID 11/04/18 11/04/18 History Gel] Insulin Glargine,Hum.rec.anlog 70 unit SQ BID 11/04/18 11/04/18 History [Lantus Solostar] Insulin Lispro [humaLOG Kwikpen] See Protocol SQ AC-TID 11/04/18 11/04/18 History Triamcinolone 0.5% Cream [Kenalog 1 applic TOPICAL BID PRN 11/04/18 11/04/18 History 0.5% Cream] Allergies Allergy/AdvReac Type Severity Reaction Status Date / Time environmental AdvReac Unknown Uncoded 11/04/18 17:12 Physical Exam Vitals: Vital Signs Temp Pulse Resp BP Pulse Ox 11/04/18 18:00 98.5 F 98 18 179/86 95 11/04/18 16:40 186/90 11/04/18 16:04 88 18 191/98 100 11/04/18 15:54 89 18 201/96 100 11/04/18 15:30 98.4 F 11/04/18 15:25 90 16 167/75 100 11/04/18 15:00 96 18 199/89 100 11/04/18 14:55 97 18 206/105 100 11/04/18 14:20 107 H 26 H 222/112 99 Intake and Output 11/04/18 11/04/18 11/04/18 06:59 14:59 22:59 Intake Total 100 Output Total 800 900 Balance -800 -800 Intake: IV 100 Sodium Chloride 0.9% 1, 100 000 ml @ 100 mls/hr IV . Q10H STA Rx#:[id number] Output: Urine 800 900 Uretheral (Valenzuela) 800 Other: Weight 136.078 kg Gen. appearance intubated, comfortable sedated on Diprivan nonacute distress includes the mechanical ventilator. #3 Head exam was generally normal. There was no scleral icterus or corneal arcus. Mucous membranes were moist. Neck was supple and without jugular venous distension, thyromegaly, or carotid bruits. Carotids were easily palpable bilaterally. There was no adenopathy. Lungs sounds are equal and symmetrical breath sounds and there is no wheezes or rhonchi any crackles. Cardiac exam revealed the PMI to be normally situated and sized. The rhythm was regular and no extrasystoles were noted during several minutes of auscultation. The first and second heart sounds were normal and physiologic splitting of the second heart sound was noted. There were no murmurs, rubs, clicks, or gallops. Abdominal exam revealed normal bowel sounds. The abdomen was soft, non-tender, and without masses, organomegaly, or appreciable enlargement of the abdominal aorta. Examination of the extremities revealed easily palpable radial, femoral and pedal pulses. There was no cyanosis, clubbing or edema. Examination of the skin revealed no evidence of significant rashes, suspicious appearing nevi or other concerning lesions. Neurologically the patient is sedated. He was quite agitated in the emergency department and had altered mentation. No nuchal rigidity. No nystagmus . No facial asymmetry. Sensory motor function cannot be accurately assessed. Results - Laboratory Findings CBC and BMP: 11/04/18 14:50 11/04/18 14:50 ABG ABG pH 7.34 (7.35-7.45) L 11/04/18 16:20 ABG pCO2 48 mmHg (35-45) H 11/04/18 16:20 ABG pO2 227 mmHg (83-108) H 11/04/18 16:20 ABG O2 Saturation 99.7 % (94-97) H 11/04/18 16:20 PT/INR, D-dimer PT 10.1 sec (9.0-12.0) 11/04/18 14:50 INR 0.9 (<1.2) 11/04/18 14:50 Abnormal lab findings: Abnormal Labs 11/04/18 11/04/18 11/04/18 14:13 14:50 14:50 WBC Neutrophils # Lymphocytes # APTT ABG pH ABG pCO2 ABG pO2 ABG HCO3 ABG Total CO2 ABG O2 Saturation Potassium BUN Glucose POC Glucose (mg/dL) 73 L AST Ammonia 55 H Total Creatine Kinase 1282 H* CK-MB (CK-2) 21.2 H Urine Protein Urine Blood Urine Bacteria 11/04/18 11/04/18 11/04/18 14:50 14:50 14:50 WBC 15.4 H Neutrophils # 14.1 H Lymphocytes # 0.6 L APTT ABG pH ABG pCO2 ABG pO2 ABG HCO3 ABG Total CO2 ABG O2 Saturation Potassium 5.4 H BUN 26 H Glucose 70 L POC Glucose (mg/dL) AST 77 H Ammonia Total Creatine Kinase CK-MB (CK-2) Urine Protein 3+ H Urine Blood Small H Urine Bacteria Rare H 11/04/18 11/04/18 11/04/18 14:50 16:20 17:32 WBC Neutrophils # Lymphocytes # APTT 20.9 L ABG pH 7.34 L ABG pCO2 48 H ABG pO2 227 H ABG HCO3 26 H ABG Total CO2 28 H ABG O2 Saturation 99.7 H Potassium BUN Glucose POC Glucose (mg/dL) 55 L AST Ammonia Total Creatine Kinase CK-MB (CK-2) Urine Protein Urine Blood Urine Bacteria 11/04/18 17:48 WBC Neutrophils # Lymphocytes # APTT ABG pH ABG pCO2 ABG pO2 ABG HCO3 ABG Total CO2 ABG O2 Saturation Potassium BUN Glucose POC Glucose (mg/dL) 107 H AST Ammonia Total Creatine Kinase CK-MB (CK-2) Urine Protein Urine Blood Urine Bacteria Assessment and Plan Plan: Assessment 1 altered mental status, consider hypoglycemia causing altered mentation addition to possibility of metabolic encephalopathy due to hypoglycemia. Acute hypoglycemic [employer] injury needs to be considered depending on the extent and the duration of the hypoglycemia. 2 mild rhabdomyolysis, consider underlying traumatic rhabdomyolysis versus seizure activity 3 acute ventilator-dependent respiratory failure, non-hypoxic, not hypercapnic, intubated for airway protection as the patient required high level of sedation and currently the patient on Diprivan to control agitation 4 diabetes mellitus, insulin-dependent with previous bouts of hypoglycemia 5 skin abrasions 6 severe JU noncompliant with CPAP therapy 7 obesity with BMI 40.7 8 BPH 9 hypertension 10 hyperlipidemia 11 peripheral Neuropathy Plan Continue vent support. Drop the FiO2 to maintain saturation above 90%. Nurses vent settings are Unchanged. Put the patient on D5 half-normal at the rate of 75 mL an hour and monitor the blood sugar. Empiric antibiotic coverage with IV Zosyn. Keep the patient sedated with Diprivan. Restart outpatient medications. The investigation including CAT scan of the brain and computed tomography scan of the spine was noted in the neck collar will be removed. Monitor CPK. Watch for any seizure activity. We'll continue to follow. ICU. We'll keep the patient intubated overnight.
[2018-11-04] MEDS: DEXTROSE 5%-0.45% NACL 1,000 ML IV SCH (18:41)
[2018-11-04 18:57] LABS: Glucose,Whole Blood 111 mg/dL (75-99)
[2018-11-04] MEDS: PROPOFOL 1,000 MG in EMPTY BAG 1 BAG IV SCH ×3 (19:09→23:28)
[2018-11-04 20:02] LABS: Glucose,Whole Blood 118 mg/dL (75-99)
[2018-11-04] MEDS: PIPERACILLIN-TAZOBACTAM 3.375 GM in SODIUM CHLORIDE 0.9% 100 ML IVPB SCH (20:30)
[2018-11-04] MEDS: CHLORHEXIDINE GLUCONATE 15 ML CUP MUCOUS MEM SCH (20:36)
[2018-11-04] MEDS: HEPARIN SODIUM,PORCINE 5,000 UNIT/ML 1 ML VIAL SQ SCH (20:38)
[2018-11-04] MEDS: CARVEDILOL 12.5 MG TAB PO SCH (20:39)
[2018-11-04] MEDS: GABAPENTIN 300 MG CAP PO SCH (20:40)
[2018-11-04] MEDS: TAMSULOSIN 0.4 MG CAP.ER.24H PO SCH (20:42)
[2018-11-04] MEDS: IPRATROPIUM-ALBUTEROL 3 ML NEB INHALATION SCH (23:25)
[2018-11-05 00:10] LABS: Glucose,Whole Blood 151 mg/dL (75-99)
[2018-11-05] MEDS: INSULIN ASPART 100 UNIT/ML 1 ML 10 ML VIAL SQ SCH ×6 (00:36→21:48)
[2018-11-05] MEDS: HEPARIN SODIUM,PORCINE 5,000 UNIT/ML 1 ML VIAL SQ SCH ×3 (00:36→15:13)
[2018-11-05] MEDS: PROPOFOL 1,000 MG in EMPTY BAG 1 BAG IV SCH ×5 (02:48→21:41)
[2018-11-05] MEDS: IPRATROPIUM-ALBUTEROL 3 ML NEB INHALATION SCH ×6 (02:55→23:20)
[2018-11-05 04:03] LABS: Glucose,Whole Blood 183 mg/dL (75-99)
[2018-11-05 04:25] LABS: ABG HCO3 32 mmol/L (21-25); ABG Oxygen Saturation 98.7 % (94-97); ABG PCO2 47 mmHg (35-45); ABG PH 7.45 (7.35-7.45); ABG PO2 109 mmHg (83-108); ABG TCO2 34 mmol/L (19-24)
[2018-11-05] MEDS: PIPERACILLIN-TAZOBACTAM 3.375 GM in SODIUM CHLORIDE 0.9% 100 ML IVPB SCH ×3 (04:37→19:15)
[2018-11-05 04:45] LABS: Basophils % (A) 0 %; Eosinophils # (A) 0.1 k/uL (0-0.7); Eosinophils % (A) 1 %; HCT 41.1 % (39.0-53.0); HGB 13.6 gm/dL (13.0-17.5); Lymphocytes % (A) 11 %; MCH 29.1 pg (25.0-35.0); MCHC 32.9 g/dL (31.0-37.0); MCV 88.4 fL (80.0-100.0); Mean Platelet Volume 6.6; Monocytes # (A) 0.6 k/uL (0-1.0); Monocytes % (A) 7 %; Neutrophils # (A) 6.7 k/uL (1.3-7.7); Neutrophils % (A) 78 %; Platelet Count 269 k/uL (150-450); RBC 4.65 m/uL (4.30-5.90); RDW 13.8 % (11.5-15.5); WBC 8.6 k/uL (3.8-10.6)
[2018-11-05 04:59] LABS: Calcium 8.7 mg/dL (8.4-10.2); Magnesium 2.1 mg/dL (1.6-2.3); Phosphorus 5.7 mg/dL (2.5-4.5)
[2018-11-05 05:20] LABS: Potassium 4.6 mmol/L (3.5-5.1)
[2018-11-05] MEDS: CHLORHEXIDINE GLUCONATE 15 ML CUP MUCOUS MEM SCH ×2 (08:09→21:42)
[2018-11-05] MEDS: buPROPion XL 300 MG TAB.ER.24H PO SCH (08:10)
[2018-11-05] MEDS: GABAPENTIN 300 MG CAP PO SCH ×3 (08:10→21:42)
[2018-11-05] MEDS: ASPIRIN 81 MG PO SCH (08:11)
[2018-11-05] MEDS: CARVEDILOL 12.5 MG TAB PO SCH ×2 (08:12→19:13)
--- NOTE | 2018-11-05 08:16 | XR ---
EXAMINATION TYPE: XR chest 1V DATE OF EXAM: 11/05/2018 HISTORY: Shortness of breath. COMPARISON: 11/04/2018 TECHNIQUE: Single view of the chest is submitted. FINDINGS: Endotracheal tube and NG tube are unchanged in position. Persistent patchy left perihilar and basilar density seen which may reflect atelectasis and/or infilt rates. The heart is stable. Hilar and mediastinal structures are within normal limits. Degenerative changes are seen of the dorsal spine. IMPRESSION: 1. Stable chest.
[2018-11-05 08:17] LABS: Glucose,Whole Blood 149 mg/dL (75-99)
[2018-11-05] MEDS: PANTOPRAZOLE 40 MG/10 ML VIAL IV SCH (08:26)
--- NOTE | 2018-11-05 09:26 | P.HPIM ---
History of Present Illness H&P Date: 11/05/18 This is a 53-year-old male patient of Dr. Castillo. Patient is brought into the ER via EMS when he was found to be combative and noncoherent. Upon arrival he per EMS blood sugar was 38 patient's blood sugar was her first the patient remained combative. At that time patient was intubated in the emergency room for airway precautions. Patient has a past medical history of heart failure, COPD, diabetes mellitus, hyperlipidemia, hypertension, sleep apnea with noncompliance of CPAP machine, neuropathy, bipolar, depression and panic disorder. Chest x-ray completed showing ET tube at the level of the medial clavicle head which is acceptable. Cardiomegaly patchy opacity left mid and lower lung. Early pneumonia not excluded. X-ray of Head and cervical spine completed showing no acute fracture or dislocation evident in the cervical spine. No acute intracranial hemorrhage, mass effect or midline shift is seen. Additional findings above possible right upper lobe pneumonia, cannot exclude thoracic aortic aneurysm. Patient was admitted to the intensive care unit. Dr. Gross was consulted for critical care management. During examination patient remains on mechanical ventilation. Patient is sedated with Diprivan. Per nursing staff no family present. Possible extubation today per critical care. Review of Systems Please refer to HPI otherwise unremarkable Past Medical History Past Medical History: Heart Failure, COPD, Diabetes Mellitus, Hyperlipidemia, Hypertension, Sleep Apnea/CPAP/BIPAP Additional Past Medical History / Comment(s): Morbid obesity BMI 40.7, obstructive sleep apnea, CHF with diastolic dysfunction, diabetes mellitus, hypertension, hyperlipidemia, hypothyroidism, BPH, peripheral neuropathy, chronic renal failure stage III kidney disease, poor compliance with medical management and diabetic management of the patient has had multiple episodes of hypoglycemia in the past. He has also had trauma and wound to his left lower extremity, chronic tinnitus, gait dysfunction, osteoarthritis History of Any Multi-Drug Resistant Organisms: None Reported Past Surgical History: Cholecystectomy Additional Past Surgical History / Comment(s): colonoscopy Past Anesthesia/Blood Transfusion Reactions: No Reported Reaction Past Psychological History: Bipolar, Depression, Panic Disorder Smoking Status: Former smoker Past Alcohol Use History: None Reported Past Drug Use History: None Reported - Past Family History Father Family Medical History: Cancer Additional Family Medical History / Comment(s): lymphoma cancer Mother Additional Family Medical History / Comment(s): alzhemimers, Medications and Allergies Home Medications Medication Instructions Recorded Confirmed Type Albuterol Inhaler [Ventolin Hfa 2 puff INHALATION RT-QID PRN 07/25/15 11/04/18 History Inhaler] Carvedilol 25 mg PO BID 07/25/15 11/04/18 History Fenofibrate 160 mg PO DAILY 07/25/15 11/04/18 History Gabapentin [Neurontin] 900 mg PO TID 07/25/15 11/04/18 History Insulin Lispro [humaLOG Kwikpen] 40 units SQ AC-TID 07/25/15 11/04/18 History Simvastatin [Zocor] 40 mg PO HS 07/25/15 11/04/18 History DULoxetine HCL [Duloxetine HCl] 60 mg PO DAILY 07/07/16 11/04/18 History Doxazosin Mesylate 8 mg PO HS 07/07/16 11/04/18 History Fluticasone Nasal [place] [Flonase 2 sprays EA NOSTRIL BID 07/07/16 11/04/18 History Nasal [place]] Tamsulosin HCl 0.8 mg PO HS 07/07/16 11/04/18 History buPROPion HCL [Wellbutrin XL] 300 mg PO DAILY 09/06/17 11/04/18 History rOPINIRole HCL [Requip] 6 mg PO TID 10/08/17 11/04/18 History Aspirin [Children's Aspirin] 81 mg PO DAILY 02/03/18 11/04/18 History Furosemide [Lasix] 40 mg PO BID #60 tablet 02/05/18 11/04/18 Rx Isosorbide Mononitrate ER [Imdur] 30 mg PO DAILY #30 tab.er.24h 02/05/18 Rx Diclofenac Sodium Gel [Voltaren 2 gm TOPICAL BID 11/04/18 11/04/18 History Gel] Insulin Glargine,Hum.rec.anlog 70 unit SQ BID 11/04/18 11/04/18 History [Lantus Solostar] Insulin Lispro [humaLOG Kwikpen] See Protocol SQ AC-TID 11/04/18 11/04/18 History Triamcinolone 0.5% Cream [Kenalog 1 applic TOPICAL BID PRN 11/04/18 11/04/18 History 0.5% Cream] Allergies Allergy/AdvReac Type Severity Reaction Status Date / Time environmental AdvReac Unknown Uncoded 11/04/18 17:12 Physical Exam Vitals: Vital Signs Temp Pulse Resp BP Pulse Ox 11/05/18 08:00 99.1 F 80 19 135/72 95 11/05/18 07:00 81 19 136/74 98 11/05/18 06:30 80 16 137/73 98 11/05/18 06:27 80 11/05/18 06:17 81 11/05/18 06:00 76 16 127/69 97 11/05/18 05:30 81 18 126/71 98 11/05/18 05:00 80 18 118/71 98 11/05/18 04:30 80 17 123/66 100 11/05/18 04:00 99.4 F 82 16 126/66 99 11/05/18 03:48 16 11/05/18 03:30 82 18 122/67 98 11/05/18 03:07 80 11/05/18 03:01 81 11/05/18 03:00 81 16 118/68 99 11/05/18 02:30 80 17 123/67 98 11/05/18 02:00 81 16 114/59 98 11/05/18 01:30 80 16 111/67 98 11/05/18 01:00 79 16 113/60 98 11/05/18 00:30 79 16 118/61 98 11/05/18 00:00 98.8 F 78 16 106/60 98 11/04/18 23:39 78 11/04/18 23:31 78 11/04/18 23:30 78 16 98 11/04/18 23:27 79 16 108/61 98 11/04/18 23:00 82 17 113/60 100 11/04/18 22:30 84 17 109/59 100 11/04/18 22:00 87 17 128/69 100 11/04/18 21:30 90 16 135/78 99 11/04/18 21:00 93 17 132/74 100 11/04/18 20:05 18 11/04/18 20:00 98.0 F 94 18 143/75 99 11/04/18 19:30 96 23 109/73 97 11/04/18 19:00 93 16 142/67 96 11/04/18 18:30 96 22 178/86 95 11/04/18 18:00 98.5 F 98 18 179/86 95 11/04/18 16:40 186/90 11/04/18 16:04 88 18 191/98 100 11/04/18 15:54 89 18 201/96 100 11/04/18 15:30 98.4 F 11/04/18 15:25 90 16 167/75 100 11/04/18 15:00 96 18 199/89 100 11/04/18 14:55 97 18 206/105 100 11/04/18 14:20 107 H 26 H 222/112 99 Intake and Output 11/04/18 11/05/18 11/05/18 22:59 06:59 14:59 Intake Total 634.329 955.116 150 Output Total 1120 1135 75 Balance -485.671 -179.884 75 Intake: IV 535 700 150 Dextrose 5%-0.45% NaCl 1, 225 600 150 000 ml @ 75 mls/hr IV . [id number] [facility] Rx#:[id number] Piperacillin-Tazobactam 3 100 100 .375 gm In Sodium Chloride 0.9% 100 ml @ 25 mls/hr IVPB Q8H [facility] Rx#: [id number] Sodium Chloride 0.9% 1, 210 000 ml @ 100 mls/hr IV . Q10H [facility] Rx#:[id number] Intake, IV Titration 99.329 255.116 Amount Propofol 1,000 mg In 99.329 255.116 Empty Bag 1 bag @ Titrate IV .Q0M [facility] Rx#: [id number] Output: Gastric Drainage 850 Urine 1120 285 75 Other: Voiding Method Indwelling Catheter Indwelling Catheter Weight 157.8 kg Head normocephalic Neck supple Lungs patient on mechanical ventilation. Diminished breath sounds bilaterally Heart regular rate and rhythm S1-S2, no rub or gallop Abdomen is soft nontender nondistended positive bowel sounds no hepatosplenomegaly Extremities no edema Neuro sedated Results CBC & Chem 7: 11/05/18 03:59 11/05/18 03:59 Labs: Abnormal Lab Results - Last 24 Hours (Table) 11/04/18 11/04/18 11/04/18 Range/Units 14:13 14:50 14:50 WBC (3.8-10.6) k/uL Neutrophils # (1.3-7.7) k/uL Lymphocytes # (1.0-4.8) k/uL APTT (22.0-30.0) sec ABG pH (7.35-7.45) ABG pCO2 (35-45) mmHg ABG pO2 (83-108) mmHg ABG HCO3 (21-25) mmol/L ABG Total CO2 (19-24) mmol/L ABG O2 Saturation (94-97) % Sodium (137-145) mmol/L Potassium (3.5-5.1) mmol/L BUN (9-20) mg/dL Creatinine (0.66-1.25) mg/dL Glucose (74-99) mg/dL POC Glucose (mg/dL) 73 L (75-99) mg/dL Hemoglobin A1c (4.0-6.0) % Phosphorus (2.5-4.5) mg/dL AST (17-59) U/L Ammonia 55 H (<30) umol/L Total Creatine Kinase 1282 H* (55-170) U/L CK-MB (CK-2) 21.2 H (0.0-2.4) ng/mL Urine Protein (Negative) Urine Blood (Negative) Urine Bacteria (None) /hpf 11/04/18 11/04/18 11/04/18 Range/Units 14:50 14:50 14:50 WBC 15.4 H (3.8-10.6) k/uL Neutrophils # 14.1 H (1.3-7.7) k/uL Lymphocytes # 0.6 L (1.0-4.8) k/uL APTT (22.0-30.0) sec ABG pH (7.35-7.45) ABG pCO2 (35-45) mmHg ABG pO2 (83-108) mmHg ABG HCO3 (21-25) mmol/L ABG Total CO2 (19-24) mmol/L ABG O2 Saturation (94-97) % Sodium (137-145) mmol/L Potassium 5.4 H (3.5-5.1) mmol/L BUN 26 H (9-20) mg/dL Creatinine (0.66-1.25) mg/dL Glucose 70 L (74-99) mg/dL POC Glucose (mg/dL) (75-99) mg/dL Hemoglobin A1c (4.0-6.0) % Phosphorus (2.5-4.5) mg/dL AST 77 H (17-59) U/L Ammonia (<30) umol/L Total Creatine Kinase (55-170) U/L CK-MB (CK-2) (0.0-2.4) ng/mL Urine Protein 3+ H (Negative) Urine Blood Small H (Negative) Urine Bacteria Rare H (None) /hpf 11/04/18 11/04/18 11/04/18 Range/Units 14:50 14:50 16:20 WBC (3.8-10.6) k/uL Neutrophils # (1.3-7.7) k/uL Lymphocytes # (1.0-4.8) k/uL APTT 20.9 L (22.0-30.0) sec ABG pH 7.34 L (7.35-7.45) ABG pCO2 48 H (35-45) mmHg ABG pO2 227 H (83-108) mmHg ABG HCO3 26 H (21-25) mmol/L ABG Total CO2 28 H (19-24) mmol/L ABG O2 Saturation 99.7 H (94-97) % Sodium (137-145) mmol/L Potassium (3.5-5.1) mmol/L BUN (9-20) mg/dL Creatinine (0.66-1.25) mg/dL Glucose (74-99) mg/dL POC Glucose (mg/dL) (75-99) mg/dL Hemoglobin A1c 8.0 H (4.0-6.0) % Phosphorus (2.5-4.5) mg/dL AST (17-59) U/L Ammonia (<30) umol/L Total Creatine Kinase (55-170) U/L CK-MB (CK-2) (0.0-2.4) ng/mL Urine Protein (Negative) Urine Blood (Negative) Urine Bacteria (None) /hpf 11/04/18 11/04/18 11/04/18 Range/Units 17:32 17:48 18:56 WBC (3.8-10.6) k/uL Neutrophils # (1.3-7.7) k/uL Lymphocytes # (1.0-4.8) k/uL APTT (22.0-30.0) sec ABG pH (7.35-7.45) ABG pCO2 (35-45) mmHg ABG pO2 (83-108) mmHg ABG HCO3 (21-25) mmol/L ABG Total CO2 (19-24) mmol/L ABG O2 Saturation (94-97) % Sodium (137-145) mmol/L Potassium (3.5-5.1) mmol/L BUN (9-20) mg/dL Creatinine (0.66-1.25) mg/dL Glucose (74-99) mg/dL POC Glucose (mg/dL) 55 L 107 H 111 H (75-99) mg/dL Hemoglobin A1c (4.0-6.0) % Phosphorus (2.5-4.5) mg/dL AST (17-59) U/L Ammonia (<30) umol/L Total Creatine Kinase (55-170) U/L CK-MB (CK-2) (0.0-2.4) ng/mL Urine Protein (Negative) Urine Blood (Negative) Urine Bacteria (None) /hpf 11/04/18 11/04/18 11/05/18 Range/Units 20:00 23:50 03:59 WBC (3.8-10.6) k/uL Neutrophils # (1.3-7.7) k/uL Lymphocytes # (1.0-4.8) k/uL APTT (22.0-30.0) sec ABG pH (7.35-7.45) ABG pCO2 (35-45) mmHg ABG pO2 (83-108) mmHg ABG HCO3 (21-25) mmol/L ABG Total CO2 (19-24) mmol/L ABG O2 Saturation (94-97) % Sodium 135 L (137-145) mmol/L Potassium (3.5-5.1) mmol/L BUN 34 H (9-20) mg/dL Creatinine 1.58 H (0.66-1.25) mg/dL Glucose 167 H (74-99) mg/dL POC Glucose (mg/dL) 118 H 151 H (75-99) mg/dL Hemoglobin A1c (4.0-6.0) % Phosphorus 5.7 H (2.5-4.5) mg/dL AST (17-59) U/L Ammonia (<30) umol/L Total Creatine Kinase (55-170) U/L CK-MB (CK-2) (0.0-2.4) ng/mL Urine Protein (Negative) Urine Blood (Negative) Urine Bacteria (None) /hpf 11/05/18 11/05/18 11/05/18 Range/Units 04:00 04:23 04:41 WBC (3.8-10.6) k/uL Neutrophils # (1.3-7.7) k/uL Lymphocytes # (1.0-4.8) k/uL APTT (22.0-30.0) sec ABG pH (7.35-7.45) ABG pCO2 47 H (35-45) mmHg ABG pO2 109 H (83-108) mmHg ABG HCO3 32 H (21-25) mmol/L ABG Total CO2 34 H (19-24) mmol/L ABG O2 Saturation 98.7 H (94-97) % Sodium (137-145) mmol/L Potassium (3.5-5.1) mmol/L BUN (9-20) mg/dL Creatinine (0.66-1.25) mg/dL Glucose (74-99) mg/dL POC Glucose (mg/dL) 183 H (75-99) mg/dL Hemoglobin A1c (4.0-6.0) % Phosphorus (2.5-4.5) mg/dL AST (17-59) U/L Ammonia 42 H (<30) umol/L Total Creatine Kinase (55-170) U/L CK-MB (CK-2) (0.0-2.4) ng/mL Urine Protein (Negative) Urine Blood (Negative) Urine Bacteria (None) /hpf 11/05/18 Range/Units 08:15 WBC (3.8-10.6) k/uL Neutrophils # (1.3-7.7) k/uL Lymphocytes # (1.0-4.8) k/uL APTT (22.0-30.0) sec ABG pH (7.35-7.45) ABG pCO2 (35-45) mmHg ABG pO2 (83-108) mmHg ABG HCO3 (21-25) mmol/L ABG Total CO2 (19-24) mmol/L ABG O2 Saturation (94-97) % Sodium (137-145) mmol/L Potassium (3.5-5.1) mmol/L BUN (9-20) mg/dL Creatinine (0.66-1.25) mg/dL Glucose (74-99) mg/dL POC Glucose (mg/dL) 149 H (75-99) mg/dL Hemoglobin A1c (4.0-6.0) % Phosphorus (2.5-4.5) mg/dL AST (17-59) U/L Ammonia (<30) umol/L Total Creatine Kinase (55-170) U/L CK-MB (CK-2) (0.0-2.4) ng/mL Urine Protein (Negative) Urine Blood (Negative) Urine Bacteria (None) /hpf Microbiology - Last 24 Hours (Table) 11/04/18 15:11 Gram Stain - Preliminary Sputum Sputum Culture - Preliminary Assessment and Plan Assessment: 1. Altered mental status with agitation. Possibly due to hypoglycemia with possibility of metabolic encephalopathy. Patient is currently on mechanical ventilation and sedated. Blood sugars have been improved. 2. Acute ventilator-dependent respiratory failure. Patient currently sedated with Diprivan. Per nursing staff possible extubation today 3. Possible left lower lobe pneumonia. Chest x-ray completed showing patchy opacities in the left mid and lower lobe early pneumonia is not excluded. Patient currently on Zosyn. 4. Hypoglycemia. Initial blood sugar 38. Patient currently on D5 half-normal saline. Blood sugars have improved. Hemoglobin A1c 8.0 5. Rhabdomyolysis. Total creatinine kinase 1282 6. Elevated ammonia level. Initial ammonia level 55. Repeat 42. Continue to monitor closely 7. Acute kidney injury. Creatinine 1.58 and bun 34. Continue to monitor closely. 8. Diabetes mellitus type 2. Per EMS had previous episodes of hypoglycemia. currently on D5 half-normal saline. Patient is also on sliding scale coverage with blood sugar checks every 4 hours 9. Obstructive sleep apnea. Patient noncompliant with CPAP 10. Skin abrasions 11. History of BPH 12. Essential hypertension 13. History of hyperlipidemia 14. Peripheral neuropathy Dr. Neal following for critical care Possible extubation today A.m. labs ordered DVT prophylaxis heparin. GI prophylaxis Protonix Time with Patient: Greater than 30 (Greater than 60% of the total time spent in counseling and coordination of care. I performed an examination of the patient and discussed their management with the Nurse Practitioner. I have reviewed the Nurse Practitioner's notes and agree with the documented findings and plan of care)
--- NOTE | 2018-11-05 10:10 | XR ---
EXAMINATION TYPE: XR abdomen 1V DATE OF EXAM: 11/05/2018 COMPARISON: NONE HISTORY: Pain TECHNIQUE: Single supine KUB image of the abdomen is obtained FINDINGS: Small bowel demonstrates no evidence for dilatation or air fluid levels. Gas and fecal material is seen in non-distended colon. No convincing evidence for pneumoperitoneum. No unusual calcifications. The lung bases are clear. The osseous structures are intact. IMPRESSION: 1. Overall nonobstructive bowel gas pattern.
[2018-11-05] MEDS: DEXTROSE 5%-0.45% NACL 1,000 ML IV SCH (10:54)
[2018-11-05] MEDS: DULoxetine HCL 60 MG CAPSULE.DR PO SCH (10:55)
[2018-11-05] MEDS: DEXMEDETOMIDINE/0.9% NACL(PMX) 400 MCG in EMPTY BAG 1 BAG IV SCH ×2 (11:02→14:51)
[2018-11-05 11:24] LABS: Basophils % (A) 0 %; Eosinophils # (A) 0.1 k/uL (0-0.7); Eosinophils % (A) 1 %; HCT 39.8 % (39.0-53.0); HGB 12.8 gm/dL (13.0-17.5); Lymphocytes # (A) 0.8 k/uL (1.0-4.8); Lymphocytes % (A) 11 %; MCH 29.1 pg (25.0-35.0); MCHC 32.2 g/dL (31.0-37.0); MCV 90.2 fL (80.0-100.0); Mean Platelet Volume 6.4; Monocytes # (A) 0.6 k/uL (0-1.0); Monocytes % (A) 8 %; Neutrophils # (A) 5.7 k/uL (1.3-7.7); Neutrophils % (A) 79 %; Platelet Count 257 k/uL (150-450); RBC 4.42 m/uL (4.30-5.90); WBC 7.2 k/uL (3.8-10.6)
[2018-11-05 11:26] LABS: Calcium 8.5 mg/dL (8.4-10.2); Potassium 4.1 mmol/L (3.5-5.1); Total Bilirubin 0.6 mg/dL (0.2-1.3); Total Protein 5.8 g/dL (6.3-8.2)
[2018-11-05 11:36] LABS: Glucose,Whole Blood 124 mg/dL (75-99)
--- NOTE | 2018-11-05 13:17 | P.PN ---
Subjective Progress Note Date: 11/05/18 On today's evaluation of 11/05/2018, the patient sedated Diprivan and the patient is calm and comfortable. He is running on 40 mics of propofol infusion and is well sedated. No agitation. No restlessness. No seizure activity. Overnight the patient was maintained on D5 half-normal saline and the patient maintained a decent blood sugar which is above 100. No hypoglycemic events were noted. The patient had maintained his own blood pressure. He was producing adequate amount of urine output. The follow-up CPK is down to 542. Creatinine is at 1.8 which is higher compared to yesterday. The patient remains on a mechanical ventilator on assist control mode with a tidal volume of 600 and FiO2 of 50% and a PEEP of 5 minutes of 16 and a blood gases from today showed a pH of 7.44 with a pCO2 of 47 and pO2 of 109. Chest x-ray is stable and shows some patchy left perihilar infiltrate and some basilar atelectasis and addition to degenerative changes of the thoracic spine. The abdominal x-ray showed nonspecific bowel gas pattern. Based on these findings, I give the patient has sedation holiday this morning. Stop the propofol and following that I found the patient to be quite agitated. He was unresponsive. He had his eyes closed and he was not following commands, he was quite agitated moving all 4 extremities and trying to climb out of bed and becoming asynchronous with a mechanical ventilator. He was unresponsive. Not responding to any verbal commands. At that point, the sedation and I was aborted and the patient was placed back on the propofol. I am planning to utilize Precedex with gradual weaning of sedation and monitored his mentation. Note that recent CAT scan of the brain was negative. Objective - Vital Signs Vital signs: Vital Signs Temp 99.1 F 11/05/18 08:00 Pulse 83 11/05/18 11:02 Resp 16 11/05/18 11:00 BP 101/59 11/05/18 11:00 Pulse Ox 97 11/05/18 11:00 Intake & Output 11/04/18 11/05/18 11/05/18 18:59 06:59 18:59 Intake Total 100 1489.445 599.190 Output Total 1700 1355 210 Balance -1600 134.445 389.190 Weight 136.078 kg 157.8 kg 157.8 kg Intake: IV 100 1135 520 0.9NS 300 Dextrose 5%-0.45% NaCl 1, 825 170 000 ml @ 75 mls/hr IV . [id number] [facility] Rx#:[id number] Piperacillin-Tazobactam 3 200 50 .375 gm In Sodium Chloride 0.9% 100 ml @ 25 mls/hr IVPB Q8H [facility] Rx#: [id number] Sodium Chloride 0.9% 1, 100 110 000 ml @ 100 mls/hr IV . Q10H [facility] Rx#:[id number] Intake, IV Titration 354.445 79.190 Amount Propofol 1,000 mg In 354.445 79.190 Empty Bag 1 bag @ Titrate IV .Q0M [facility] Rx#: [id number] Output: Gastric Drainage 850 Urine 1700 505 210 Uretheral (Valenzuela) 800 Other: Voiding Method Indwelling Catheter Indwelling Catheter - Exam Gen. appearance intubated, comfortable sedated on Diprivan nonacute distress includes the mechanical ventilator. #3 Head exam was generally normal. There was no scleral icterus or corneal arcus. Mucous membranes were moist. Neck was supple and without jugular venous distension, thyromegaly, or carotid bruits. Carotids were easily palpable bilaterally. There was no adenopathy. Lungs sounds are equal and symmetrical breath sounds and there is no wheezes or rhonchi any crackles. Cardiac exam revealed the PMI to be normally situated and sized. The rhythm was regular and no extrasystoles were noted during several minutes of auscultation. The first and second heart sounds were normal and physiologic splitting of the second heart sound was noted. There were no murmurs, rubs, clicks, or gallops. Abdominal exam revealed normal bowel sounds. The abdomen was soft, non-tender, and without masses, organomegaly, or appreciable enlargement of the abdominal aorta. Examination of the extremities revealed easily palpable radial, femoral and pedal pulses. There was no cyanosis, clubbing or edema. Examination of the skin revealed no evidence of significant rashes, suspicious appearing nevi or other concerning lesions. Neurologically the patient is sedated. He was quite agitated in the emergency department and had altered mentation. No nuchal rigidity. No nystagmus . No facial asymmetry. Sensory motor function cannot be accurately assessed. - Labs CBC & Chem 7: 11/05/18 10:54 11/05/18 10:54 Labs: Abnormal Lab Results - Last 24 Hours (Table) 11/04/18 11/04/18 11/04/18 Range/Units 14:13 14:50 14:50 WBC (3.8-10.6) k/uL Hgb (13.0-17.5) gm/dL Neutrophils # (1.3-7.7) k/uL Lymphocytes # (1.0-4.8) k/uL APTT (22.0-30.0) sec ABG pH (7.35-7.45) ABG pCO2 (35-45) mmHg ABG pO2 (83-108) mmHg ABG HCO3 (21-25) mmol/L ABG Total CO2 (19-24) mmol/L ABG O2 Saturation (94-97) % Sodium (137-145) mmol/L Potassium (3.5-5.1) mmol/L BUN (9-20) mg/dL Creatinine (0.66-1.25) mg/dL Glucose (74-99) mg/dL POC Glucose (mg/dL) 73 L (75-99) mg/dL Hemoglobin A1c (4.0-6.0) % Phosphorus (2.5-4.5) mg/dL AST (17-59) U/L Ammonia 55 H (<30) umol/L Creatine Kinase (55-170) U/L Total Creatine Kinase 1282 H* (55-170) U/L CK-MB (CK-2) 21.2 H (0.0-2.4) ng/mL Total Protein (6.3-8.2) g/dL Albumin (3.5-5.0) g/dL Urine Protein (Negative) Urine Blood (Negative) Urine Bacteria (None) /hpf 11/04/18 11/04/18 11/04/18 Range/Units 14:50 14:50 14:50 WBC 15.4 H (3.8-10.6) k/uL Hgb (13.0-17.5) gm/dL Neutrophils # 14.1 H (1.3-7.7) k/uL Lymphocytes # 0.6 L (1.0-4.8) k/uL APTT (22.0-30.0) sec ABG pH (7.35-7.45) ABG pCO2 (35-45) mmHg ABG pO2 (83-108) mmHg ABG HCO3 (21-25) mmol/L ABG Total CO2 (19-24) mmol/L ABG O2 Saturation (94-97) % Sodium (137-145) mmol/L Potassium 5.4 H (3.5-5.1) mmol/L BUN 26 H (9-20) mg/dL Creatinine (0.66-1.25) mg/dL Glucose 70 L (74-99) mg/dL POC Glucose (mg/dL) (75-99) mg/dL Hemoglobin A1c (4.0-6.0) % Phosphorus (2.5-4.5) mg/dL AST 77 H (17-59) U/L Ammonia (<30) umol/L Creatine Kinase (55-170) U/L Total Creatine Kinase (55-170) U/L CK-MB (CK-2) (0.0-2.4) ng/mL Total Protein (6.3-8.2) g/dL Albumin (3.5-5.0) g/dL Urine Protein 3+ H (Negative) Urine Blood Small H (Negative) Urine Bacteria Rare H (None) /hpf 11/04/18 11/04/18 11/04/18 Range/Units 14:50 14:50 16:20 WBC (3.8-10.6) k/uL Hgb (13.0-17.5) gm/dL Neutrophils # (1.3-7.7) k/uL Lymphocytes # (1.0-4.8) k/uL APTT 20.9 L (22.0-30.0) sec ABG pH 7.34 L (7.35-7.45) ABG pCO2 48 H (35-45) mmHg ABG pO2 227 H (83-108) mmHg ABG HCO3 26 H (21-25) mmol/L ABG Total CO2 28 H (19-24) mmol/L ABG O2 Saturation 99.7 H (94-97) % Sodium (137-145) mmol/L Potassium (3.5-5.1) mmol/L BUN (9-20) mg/dL Creatinine (0.66-1.25) mg/dL Glucose (74-99) mg/dL POC Glucose (mg/dL) (75-99) mg/dL Hemoglobin A1c 8.0 H (4.0-6.0) % Phosphorus (2.5-4.5) mg/dL AST (17-59) U/L Ammonia (<30) umol/L Creatine Kinase (55-170) U/L Total Creatine Kinase (55-170) U/L CK-MB (CK-2) (0.0-2.4) ng/mL Total Protein (6.3-8.2) g/dL Albumin (3.5-5.0) g/dL Urine Protein (Negative) Urine Blood (Negative) Urine Bacteria (None) /hpf 11/04/18 11/04/18 11/04/18 Range/Units 17:32 17:48 18:56 WBC (3.8-10.6) k/uL Hgb (13.0-17.5) gm/dL Neutrophils # (1.3-7.7) k/uL Lymphocytes # (1.0-4.8) k/uL APTT (22.0-30.0) sec ABG pH (7.35-7.45) ABG pCO2 (35-45) mmHg ABG pO2 (83-108) mmHg ABG HCO3 (21-25) mmol/L ABG Total CO2 (19-24) mmol/L ABG O2 Saturation (94-97) % Sodium (137-145) mmol/L Potassium (3.5-5.1) mmol/L BUN (9-20) mg/dL Creatinine (0.66-1.25) mg/dL Glucose (74-99) mg/dL POC Glucose (mg/dL) 55 L 107 H 111 H (75-99) mg/dL Hemoglobin A1c (4.0-6.0) % Phosphorus (2.5-4.5) mg/dL AST (17-59) U/L Ammonia (<30) umol/L Creatine Kinase (55-170) U/L Total Creatine Kinase (55-170) U/L CK-MB (CK-2) (0.0-2.4) ng/mL Total Protein (6.3-8.2) g/dL Albumin (3.5-5.0) g/dL Urine Protein (Negative) Urine Blood (Negative) Urine Bacteria (None) /hpf 11/04/18 11/04/18 11/05/18 Range/Units 20:00 23:50 03:59 WBC (3.8-10.6) k/uL Hgb (13.0-17.5) gm/dL Neutrophils # (1.3-7.7) k/uL Lymphocytes # (1.0-4.8) k/uL APTT (22.0-30.0) sec ABG pH (7.35-7.45) ABG pCO2 (35-45) mmHg ABG pO2 (83-108) mmHg ABG HCO3 (21-25) mmol/L ABG Total CO2 (19-24) mmol/L ABG O2 Saturation (94-97) % Sodium 135 L (137-145) mmol/L Potassium (3.5-5.1) mmol/L BUN 34 H (9-20) mg/dL Creatinine 1.58 H (0.66-1.25) mg/dL Glucose 167 H (74-99) mg/dL POC Glucose (mg/dL) 118 H 151 H (75-99) mg/dL Hemoglobin A1c (4.0-6.0) % Phosphorus 5.7 H (2.5-4.5) mg/dL AST (17-59) U/L Ammonia (<30) umol/L Creatine Kinase (55-170) U/L Total Creatine Kinase (55-170) U/L CK-MB (CK-2) (0.0-2.4) ng/mL Total Protein (6.3-8.2) g/dL Albumin (3.5-5.0) g/dL Urine Protein (Negative) Urine Blood (Negative) Urine Bacteria (None) /hpf 11/05/18 11/05/18 11/05/18 Range/Units 04:00 04:23 04:41 WBC (3.8-10.6) k/uL Hgb (13.0-17.5) gm/dL Neutrophils # (1.3-7.7) k/uL Lymphocytes # (1.0-4.8) k/uL APTT (22.0-30.0) sec ABG pH (7.35-7.45) ABG pCO2 47 H (35-45) mmHg ABG pO2 109 H (83-108) mmHg ABG HCO3 32 H (21-25) mmol/L ABG Total CO2 34 H (19-24) mmol/L ABG O2 Saturation 98.7 H (94-97) % Sodium (137-145) mmol/L Potassium (3.5-5.1) mmol/L BUN (9-20) mg/dL Creatinine (0.66-1.25) mg/dL Glucose (74-99) mg/dL POC Glucose (mg/dL) 183 H (75-99) mg/dL Hemoglobin A1c (4.0-6.0) % Phosphorus (2.5-4.5) mg/dL AST (17-59) U/L Ammonia 42 H (<30) umol/L Creatine Kinase (55-170) U/L Total Creatine Kinase (55-170) U/L CK-MB (CK-2) (0.0-2.4) ng/mL Total Protein (6.3-8.2) g/dL Albumin (3.5-5.0) g/dL Urine Protein (Negative) Urine Blood (Negative) Urine Bacteria (None) /hpf 11/05/18 11/05/18 11/05/18 Range/Units 04:41 08:15 10:54 WBC (3.8-10.6) k/uL Hgb 12.8 L (13.0-17.5) gm/dL Neutrophils # (1.3-7.7) k/uL Lymphocytes # 0.8 L (1.0-4.8) k/uL APTT (22.0-30.0) sec ABG pH (7.35-7.45) ABG pCO2 (35-45) mmHg ABG pO2 (83-108) mmHg ABG HCO3 (21-25) mmol/L ABG Total CO2 (19-24) mmol/L ABG O2 Saturation (94-97) % Sodium (137-145) mmol/L Potassium (3.5-5.1) mmol/L BUN (9-20) mg/dL Creatinine (0.66-1.25) mg/dL Glucose (74-99) mg/dL POC Glucose (mg/dL) 149 H (75-99) mg/dL Hemoglobin A1c (4.0-6.0) % Phosphorus (2.5-4.5) mg/dL AST (17-59) U/L Ammonia (<30) umol/L Creatine Kinase 542 H (55-170) U/L Total Creatine Kinase (55-170) U/L CK-MB (CK-2) (0.0-2.4) ng/mL Total Protein (6.3-8.2) g/dL Albumin (3.5-5.0) g/dL Urine Protein (Negative) Urine Blood (Negative) Urine Bacteria (None) /hpf 11/05/18 11/05/18 Range/Units 10:54 11:35 WBC (3.8-10.6) k/uL Hgb (13.0-17.5) gm/dL Neutrophils # (1.3-7.7) k/uL Lymphocytes # (1.0-4.8) k/uL APTT (22.0-30.0) sec ABG pH (7.35-7.45) ABG pCO2 (35-45) mmHg ABG pO2 (83-108) mmHg ABG HCO3 (21-25) mmol/L ABG Total CO2 (19-24) mmol/L ABG O2 Saturation (94-97) % Sodium 136 L (137-145) mmol/L Potassium (3.5-5.1) mmol/L BUN 36 H (9-20) mg/dL Creatinine 1.86 H (0.66-1.25) mg/dL Glucose 118 H (74-99) mg/dL POC Glucose (mg/dL) 124 H (75-99) mg/dL Hemoglobin A1c (4.0-6.0) % Phosphorus (2.5-4.5) mg/dL AST (17-59) U/L Ammonia (<30) umol/L Creatine Kinase (55-170) U/L Total Creatine Kinase (55-170) U/L CK-MB (CK-2) (0.0-2.4) ng/mL Total Protein 5.8 L (6.3-8.2) g/dL Albumin 3.0 L (3.5-5.0) g/dL Urine Protein (Negative) Urine Blood (Negative) Urine Bacteria (None) /hpf Microbiology - Last 24 Hours (Table) 11/04/18 15:11 Gram Stain - Preliminary Sputum Sputum Culture - Preliminary Assessment and Plan Plan: Assessment 1 altered mental status, consider hypoglycemia causing altered mentation addition to possibility of metabolic encephalopathy due to hypoglycemia. Acute hypoglycemic [employer] injury needs to be considered depending on the extent and the duration of the hypoglycemia. The patient was kept overnight on a mechanical ventilator. Earlier this morning he was given a sedation holiday which she failed due to increased agitation and ongoing unresponsiveness. He was placed back on propofol and the plan is to switch this patient to Precedex and proceed another sedation holiday. There is a constellation of the patient suffered a encephalopathy related to profound and prolonged hypoglycemia. 2 mild rhabdomyolysis, consider underlying traumatic rhabdomyolysis versus seizure activity, improving 3 acute ventilator-dependent respiratory failure, non-hypoxic, not hypercapnic, intubated for airway protection as the patient required high level of sedation and currently the patient on Diprivan to control agitation 4 diabetes mellitus, insulin-dependent with previous bouts of hypoglycemia 5 skin abrasions 6 severe JU noncompliant with CPAP therapy 7 obesity with BMI 40.7 8 BPH 9 hypertension 10 hyperlipidemia 11 peripheral Neuropathy Plan Continue vent support. The patient continues to have altered mentation. Consideration is being given for encephalopathy secondary to prolonged hypoglycemia. CAT scan of the brain initially was negative and with maintained a blood sugar above 100. For now, the patient will be taken off the Diprivan and will try Precedex drip for sedation and he will be given a sedation holiday today to stage. The patient will be started on tube feeds with Glucerna. Switch Diprivan dose to normal state rate of 100 mL an hour. Blood gases was reviewed. Chest x-ray. CPKs on the decline. Creatinine is fluctuating at the patient is known to have a component of chronic kidney disease. May need to repeat the CAT scan with the next 24 hours of of the initial CAT scan to rule out any bleed or stroke. We are going to follow this patient in ICU. Further recommends that to follow. Continued care evaluation was in 30 minutes. Time with Patient: Greater than 30
[2018-11-05] MEDS: SODIUM CHLORIDE 0.9% 1,000 ML IV SCH ×2 (14:51→21:50)
[2018-11-05 16:42] LABS: Glucose,Whole Blood 125 mg/dL (75-99)
--- NOTE | 2018-11-05 17:33 | CT ---
EXAMINATION TYPE: CT brain wo con DATE OF EXAM: 11/05/2018 COMPARISON: 11/04/2018 HISTORY: Follow up scan from yesterday. Altered mental status. CT DLP: 1146.4 mGycm Automated exposure control for dose reduction was used. FINDINGS: There is mild cerebral cortical atrophy. There is no mass effect nor midline shift. There is no sign of intracranial hemorrhage. Calvarium is intact. There is minimal mucosal thickening in the ethmoid a ir cells and sphenoid sinus. There is small mucosal thickening right maxillary sinus. IMPRESSION: CEREBRAL ATROPHY. MILD SINUSITIS. NO ACUTE INTRACRANIAL ABNORMALITY. NO CHANGE IN THE BRAIN COMPARED TO YESTERDAY.
[2018-11-05] MEDS: TAMSULOSIN 0.4 MG CAP.ER.24H PO SCH (21:35)
[2018-11-05 21:41] LABS: Glucose,Whole Blood 163 mg/dL (75-99)
[2018-11-06] MEDS: PROPOFOL 1,000 MG in EMPTY BAG 1 BAG IV SCH ×11 (00:18→23:51)
[2018-11-06 00:27] LABS: Glucose,Whole Blood 173 mg/dL (75-99)
[2018-11-06] MEDS: INSULIN ASPART 100 UNIT/ML 1 ML 10 ML VIAL SQ SCH ×7 (00:34→23:50)
[2018-11-06] MEDS: HEPARIN SODIUM,PORCINE 5,000 UNIT/ML 1 ML VIAL SQ SCH ×4 (00:36→23:49)
[2018-11-06] MEDS: IPRATROPIUM-ALBUTEROL 3 ML NEB INHALATION SCH ×6 (03:37→23:24)
[2018-11-06] MEDS: PIPERACILLIN-TAZOBACTAM 3.375 GM in SODIUM CHLORIDE 0.9% 100 ML IVPB SCH ×3 (03:55→20:25)
[2018-11-06 04:10] LABS: Glucose,Whole Blood 174 mg/dL (75-99)
[2018-11-06 04:46] LABS: Basophils % (A) 0 %; Eosinophils # (A) 0.1 k/uL (0-0.7); Eosinophils % (A) 2 %; HCT 37.8 % (39.0-53.0); HGB 12.1 gm/dL (13.0-17.5); Lymphocytes % (A) 17 %; MCH 29.3 pg (25.0-35.0); MCHC 32.1 g/dL (31.0-37.0); MCV 91.3 fL (80.0-100.0); Mean Platelet Volume 6.5; Monocytes # (A) 0.3 k/uL (0-1.0); Monocytes % (A) 6 %; Neutrophils # (A) 4.2 k/uL (1.3-7.7); Neutrophils % (A) 72 %; Platelet Count 204 k/uL (150-450); RBC 4.14 m/uL (4.30-5.90); RDW 14.2 % (11.5-15.5); WBC 5.8 k/uL (3.8-10.6)
[2018-11-06 04:55] LABS: Calcium 8.3 mg/dL (8.4-10.2); Magnesium 2.3 mg/dL (1.6-2.3); Phosphorus 3.5 mg/dL (2.5-4.5); Potassium 3.9 mmol/L (3.5-5.1)
[2018-11-06] MEDS ORDERED: Potassium Replacement Protocol 1 EACH MISC MISCELLANE PRN (05:02)
[2018-11-06 05:09] LABS: ABG Base Excess 7.6 mmol/L; ABG HCO3 32 mmol/L (21-25); ABG Oxygen Saturation 97.6 % (94-97); ABG PCO2 51 mmHg (35-45); ABG PH 7.41 (7.35-7.45); ABG PO2 95 mmHg (83-108); ABG TCO2 34 mmol/L (19-24)
[2018-11-06] MEDS ORDERED: POTASSIUM BICARBONATE/CIT AC 20 MEQ TABLET.EFF NG-TUBE SCH (06:00)
--- NOTE | 2018-11-06 06:19 | XR ---
EXAMINATION TYPE: XR chest 1V DATE OF EXAM: 11/06/2018 HISTORY: ettube. REFERENCE: Previous study dated 11/05/2018. FINDINGS: The patient is ET tube and NG tube remain in place, unchanged in appearance. The heart is enlarged. There are small, bilateral effusions. There is bibasilar airspace disease. IMPRESSION: NO SIGNIFICANT INTERVAL CHANGE IN THE APPEARANCE OF THE CHEST.
[2018-11-06] MEDS: SODIUM CHLORIDE 0.9% 1,000 ML IV SCH ×2 (08:25→13:56)
[2018-11-06] MEDS: buPROPion XL 300 MG TAB.ER.24H PO SCH (08:29)
[2018-11-06] MEDS: CARVEDILOL 12.5 MG TAB PO SCH ×2 (08:29→18:21)
[2018-11-06] MEDS: ASPIRIN 81 MG PO SCH (08:29)
[2018-11-06] MEDS: PANTOPRAZOLE 40 MG/10 ML VIAL IV SCH (08:30)
[2018-11-06] MEDS: GABAPENTIN 300 MG CAP PO SCH ×3 (08:30→21:18)
[2018-11-06] MEDS: DULoxetine HCL 60 MG CAPSULE.DR PO SCH (08:30)
[2018-11-06] MEDS: CHLORHEXIDINE GLUCONATE 15 ML CUP MUCOUS MEM SCH ×2 (08:30→20:28)
[2018-11-06 09:02] LABS: Glucose,Whole Blood 193 mg/dL (75-99)
[2018-11-06 12:53] LABS: Glucose,Whole Blood 153 mg/dL (75-99)
[2018-11-06 16:27] LABS: Glucose,Whole Blood 157 mg/dL (75-99)
--- NOTE | 2018-11-06 16:53 | P.PN ---
Subjective Progress Note Date: 11/06/18 This is a 53-year-old male patient of Dr. Castillo. Patient is brought into the ER via EMS when he was found to be combative and noncoherent. Upon arrival he per EMS blood sugar was 38 patient's blood sugar was her first the patient remained combative. At that time patient was intubated in the emergency room for airway precautions. Patient has a past medical history of heart failure, COPD, diabetes mellitus, hyperlipidemia, hypertension, sleep apnea with noncompliance of CPAP machine, neuropathy, bipolar, depression and panic disorder. Chest x-ray completed showing ET tube at the level of the medial clavicle head which is acceptable. Cardiomegaly patchy opacity left mid and lower lung. Early pneumonia not excluded. X-ray of Head and cervical spine completed showing no acute fracture or dislocation evident in the cervical spine. No acute intracranial hemorrhage, mass effect or midline shift is seen. Additional findings above possible right upper lobe pneumonia, cannot exclude thoracic aortic aneurysm. Patient was admitted to the intensive care unit. Dr. Gross was consulted for critical care management. During examination patient remains on mechanical ventilation. Patient is sedated with Diprivan. Per nursing staff no family present. Possible extubation today per critical care. On 11/06/2018 patient was seen and examined in the intensive care unit he is intubated sedated maintained on mechanical ventilation, sedation was held this morning and patient did not have any significant response EEG was ordered by Dr. Agustin, currently patient is back on sedation. Objective - Vital Signs Vital signs: Vital Signs Temp 99.6 F 11/06/18 16:01 Pulse 74 11/06/18 16:30 Resp 17 11/06/18 16:30 BP 154/78 11/06/18 16:30 Pulse Ox 96 11/06/18 16:30 Intake & Output 11/05/18 11/06/18 11/06/18 18:59 06:59 18:59 Intake Total 8653.598 6221.106 1868.847 Output Total 636 1645 1555 Balance 784.927 545.106 313.847 Weight 157.8 kg 157.6 kg 157.6 kg Intake: IV 1070 1300 200 0.9NS 800 1200 100 Dextrose 5%-0.45% NaCl 1, 170 000 ml @ 75 mls/hr IV . [id number] [facility] Rx#:[id number] Piperacillin-Tazobactam 3 100 100 100 .375 gm In Sodium Chloride 0.9% 100 ml @ 25 mls/hr IVPB Q8H [facility] Rx#: [id number] Intake, IV Titration 350.927 609.170 3639.847 Amount Dexmedetomidine/0.9% NaCl 79.083 (Pmx) 400 mcg In Empty Bag 1 bag @ Titrate IV . Q0M [facility] Rx#:[id number] Propofol 1,000 mg In 271.844 265.106 348.847 Empty Bag 1 bag @ Titrate IV .Q0M [facility] Rx#: [id number] Sodium Chloride 0.9% 1, 700 000 ml @ 50 mls/hr IV . Q20H [facility] Rx#:[id number] Tube Feeding 535 470 Other 90 150 Output: Urine 636 1645 1555 Other: Voiding Method Indwelling Catheter Indwelling Catheter Indwelling Catheter # Bowel Movements 1 - Exam Head normocephalic and atraumatic Neck supple Lungs patient on mechanical ventilation. Diminished breath sounds bilaterally Heart regular rate and rhythm S1-S2, no rub or gallop Abdomen is soft nontender nondistended positive bowel sounds no hepatosplenomegaly Extremities no edema Neuro sedated - Labs CBC & Chem 7: 11/06/18 04:29 11/06/18 07:58 Labs: Abnormal Lab Results - Last 24 Hours (Table) 11/05/18 11/06/18 11/06/18 Range/Units 21:39 00:26 04:08 RBC (4.30-5.90) m/uL Hgb (13.0-17.5) gm/dL Hct (39.0-53.0) % ABG pCO2 (35-45) mmHg ABG HCO3 (21-25) mmol/L ABG Total CO2 (19-24) mmol/L ABG O2 Saturation (94-97) % Sodium (137-145) mmol/L BUN (9-20) mg/dL Creatinine (0.66-1.25) mg/dL Glucose (74-99) mg/dL POC Glucose (mg/dL) 163 H 173 H 174 H (75-99) mg/dL Calcium (8.4-10.2) mg/dL Ammonia (<30) umol/L 01/11/06/18 11/06/18 Range/Units 04:29 04:29 04:29 RBC 4.14 L (4.30-5.90) m/uL Hgb 12.1 L (13.0-17.5) gm/dL Hct 37.8 L (39.0-53.0) % ABG pCO2 (35-45) mmHg ABG HCO3 (21-25) mmol/L ABG Total CO2 (19-24) mmol/L ABG O2 Saturation (94-97) % Sodium 136 L (137-145) mmol/L BUN 34 H (9-20) mg/dL Creatinine 1.66 H (0.66-1.25) mg/dL Glucose 189 H (74-99) mg/dL POC Glucose (mg/dL) (75-99) mg/dL Calcium 8.3 L (8.4-10.2) mg/dL Ammonia 36 H (<30) umol/L 11/06/18 11/06/18 11/06/18 Range/Units 05:05 08:42 12:50 RBC (4.30-5.90) m/uL Hgb (13.0-17.5) gm/dL Hct (39.0-53.0) % ABG pCO2 51 H (35-45) mmHg ABG HCO3 32 H (21-25) mmol/L ABG Total CO2 34 H (19-24) mmol/L ABG O2 Saturation 97.6 H (94-97) % Sodium (137-145) mmol/L BUN (9-20) mg/dL Creatinine (0.66-1.25) mg/dL Glucose (74-99) mg/dL POC Glucose (mg/dL) 193 H 153 H (75-99) mg/dL Calcium (8.4-10.2) mg/dL Ammonia (<30) umol/L 11/06/18 Range/Units 16:25 RBC (4.30-5.90) m/uL Hgb (13.0-17.5) gm/dL Hct (39.0-53.0) % ABG pCO2 (35-45) mmHg ABG HCO3 (21-25) mmol/L ABG Total CO2 (19-24) mmol/L ABG O2 Saturation (94-97) % Sodium (137-145) mmol/L BUN (9-20) mg/dL Creatinine (0.66-1.25) mg/dL Glucose (74-99) mg/dL POC Glucose (mg/dL) 157 H (75-99) mg/dL Calcium (8.4-10.2) mg/dL Ammonia (<30) umol/L Microbiology - Last 24 Hours (Table) 11/04/18 15:11 Gram Stain - Final Sputum Sputum Culture - Final Assessment and Plan Plan: 1. Altered mental status with agitation. Possibly due to hypoglycemia with possibility of metabolic encephalopathy. Patient is currently on mechanical ventilation and sedated. Blood sugars have been improved. 2. Acute ventilator-dependent respiratory failure. Patient currently sedated with Diprivan. Per nursing staff possible extubation today 3. Possible left lower lobe pneumonia. Chest x-ray completed showing patchy opacities in the left mid and lower lobe early pneumonia is not excluded. Patient currently on Zosyn. 4. Hypoglycemia. Initial blood sugar 38. Patient currently on D5 half-normal saline. Blood sugars have improved. Hemoglobin A1c 8.0 5. Rhabdomyolysis. Total creatinine kinase 1282 6. Elevated ammonia level. Initial ammonia level 55. Repeat 42. Continue to monitor closely 7. Acute kidney injury. Creatinine 1.58 and bun 34. Continue to monitor closely. 8. Diabetes mellitus type 2. Per EMS had previous episodes of hypoglycemia. currently on D5 half-normal saline. Patient is also on sliding scale coverage with blood sugar checks every 4 hours 9. Obstructive sleep apnea. Patient noncompliant with CPAP 10. Skin abrasions 11. History of BPH 12. Essential hypertension 13. History of hyperlipidemia 14. Peripheral neuropathy Dr. Neal following for critical care Sedation was withheld today patient did not have any significant response EEG was ordered by Dr. Agustin Prognosis guarded A.m. labs ordered DVT prophylaxis heparin. GI prophylaxis Protonix
[2018-11-06 20:24] LABS: Glucose,Whole Blood 147 mg/dL (75-99)
[2018-11-06] MEDS: TAMSULOSIN 0.4 MG CAP.ER.24H PO SCH (20:36)
[2018-11-06 23:59] LABS: Glucose,Whole Blood 155 mg/dL (75-99)
[2018-11-07] MEDS: PROPOFOL 1,000 MG in EMPTY BAG 1 BAG IV SCH ×4 (01:50→07:54)
[2018-11-07] MEDS: PIPERACILLIN-TAZOBACTAM 3.375 GM in SODIUM CHLORIDE 0.9% 100 ML IVPB SCH ×3 (03:36→20:24)
[2018-11-07 03:41] LABS: Glucose,Whole Blood 141 mg/dL (75-99)
[2018-11-07] MEDS: INSULIN ASPART 100 UNIT/ML 1 ML 10 ML VIAL SQ SCH ×5 (03:42→20:29)
[2018-11-07] MEDS: IPRATROPIUM-ALBUTEROL 3 ML NEB INHALATION SCH ×6 (03:44→23:54)
[2018-11-07 04:58] LABS: Basophils % (A) 1 %; Eosinophils # (A) 0.1 k/uL (0-0.7); Eosinophils % (A) 3 %; HCT 36.3 % (39.0-53.0); HGB 11.7 gm/dL (13.0-17.5); Lymphocytes % (A) 23 %; MCH 29.8 pg (25.0-35.0); MCHC 32.2 g/dL (31.0-37.0); MCV 92.6 fL (80.0-100.0); Mean Platelet Volume 6.6; Monocytes # (A) 0.3 k/uL (0-1.0); Monocytes % (A) 6 %; Neutrophils # (A) 2.9 k/uL (1.3-7.7); Neutrophils % (A) 65 %; Platelet Count 210 k/uL (150-450); RBC 3.92 m/uL (4.30-5.90); RDW 13.9 % (11.5-15.5); WBC 4.5 k/uL (3.8-10.6)
[2018-11-07 04:59] LABS: ABG Base Excess 8.7 mmol/L; ABG HCO3 33 mmol/L (21-25); ABG Oxygen Saturation 97.5 % (94-97); ABG PCO2 46 mmHg (35-45); ABG PH 7.46 (7.35-7.45); ABG PO2 85 mmHg (83-108); ABG TCO2 34 mmol/L (19-24)
[2018-11-07 05:23] LABS: Calcium 8.5 mg/dL (8.4-10.2); Magnesium 2.4 mg/dL (1.6-2.3); Phosphorus 2.8 mg/dL (2.5-4.5)
--- NOTE | 2018-11-07 07:01 | XR ---
EXAMINATION TYPE: XR chest 1V DATE OF EXAM: 11/07/2018 HISTORY: ettube. REFERENCE: Previous study dated 11/06/2018. FINDINGS: Patient is ET tube and NG tube remain in place. The heart is mildly enlarged. There is left basilar atelectasis. Right lung appears clear. There is m ild vascular congestion without edema. IMPRESSION: 1. CARDIOMEGALY. 2. LEFT BASILAR AIRSPACE DISEASE. 3. I CANNOT EXCLUDE A SMALL LEFT-SIDED EFFUSION.
[2018-11-07 08:15] LABS: Glucose,Whole Blood 166 mg/dL (75-99)
[2018-11-07] MEDS: CARVEDILOL 12.5 MG TAB PO SCH ×2 (08:21→17:15)
[2018-11-07] MEDS: PANTOPRAZOLE 40 MG/10 ML VIAL IV SCH (08:22)
[2018-11-07] MEDS: buPROPion XL 300 MG TAB.ER.24H PO SCH (08:22)
[2018-11-07] MEDS: HEPARIN SODIUM,PORCINE 5,000 UNIT/ML 1 ML VIAL SQ SCH ×2 (08:22→17:13)
[2018-11-07] MEDS: GABAPENTIN 300 MG CAP PO SCH ×3 (08:22→20:29)
[2018-11-07] MEDS: DULoxetine HCL 60 MG CAPSULE.DR PO SCH (08:22)
[2018-11-07] MEDS: CHLORHEXIDINE GLUCONATE 15 ML CUP MUCOUS MEM SCH (08:22)
[2018-11-07] MEDS: ASPIRIN 81 MG PO SCH (08:22)
--- NOTE | 2018-11-07 10:37 | P.PN ---
Subjective Progress Note Date: 11/07/18 On 11/07/2018, the patient is in the process of getting another sedation holiday. The procedure yesterday failed and the patient became agitated, nonresponsive, thrashing, not ready for extubation. Based on that, the holiday was aborted and the patient was placed on Diprivan and earlier this morning he was on 60 g. EEG has not been done yet. We have to CAT scan of the lingula negative. We'll give the patient another sedation holiday. He remains on a mechanical ventilator on assist control mode at the rate of 16, tidal volume of 600 and FiO2 of 40% and a PEEP of 5. His blood gases from today showed a pH of 7.46 with a pCO2 of 46 and pO2 of 85. His chest x-ray shows limited infusion lung bases bilaterally. Otherwise no other acute abnormalities noted. The patient's creatinine is down to 1.4. Vessel blood work and electrodes are all within normal limits. Tolerating his tube feeds. She'll feeds are currently on hold as the patient is being given a sedation holiday. No hypoglycemia. No seizure activity. Reflexes are diminished. No Babinski. No clonus. Objective - Vital Signs Vital signs: Vital Signs Temp 98.6 F 11/07/18 08:00 Pulse 68 11/07/18 10:00 Resp 25 H 11/07/18 10:00 BP 145/70 11/07/18 10:00 Pulse Ox 97 11/07/18 10:00 Intake & Output 11/06/18 11/07/18 11/07/18 18:59 06:59 18:59 Intake Total 2161.643 1612.474 512.920 Output Total 2105 1135 300 Balance 56.643 477.474 212.920 Weight 157.6 kg 157.8 kg Intake: IV 200 550 50 0.9NS 100 550 50 Piperacillin-Tazobactam 3 100 .375 gm In Sodium Chloride 0.9% 100 ml @ 25 mls/hr IVPB Q8H [facility] Rx#: [id number] Intake, IV Titration 1221.643 582.474 282.920 Amount Propofol 1,000 mg In 421.643 532.474 132.920 Empty Bag 1 bag @ Titrate IV .Q0M [facility] Rx#: [id number] Sodium Chloride 0.9% 1, 800 50 150 000 ml @ 50 mls/hr IV . Q20H [facility] Rx#:[id number] Tube Feeding 530 390 120 Other 210 90 60 Output: Urine 2105 1135 300 Other: Voiding Method Indwelling Catheter Indwelling Catheter Indwelling Catheter # Bowel Movements 1 1 - Exam Gen. appearance intubated, comfortable sedated on Diprivan nonacute distress includes the mechanical ventilator. Head exam was generally normal. There was no scleral icterus or corneal arcus. Mucous membranes were moist. Neck was supple and without jugular venous distension, thyromegaly, or carotid bruits. Carotids were easily palpable bilaterally. There was no adenopathy. Lungs sounds are equal and symmetrical breath sounds and there is no wheezes or rhonchi any crackles. Cardiac exam revealed the PMI to be normally situated and sized. The rhythm was regular and no extrasystoles were noted during several minutes of auscultation. The first and second heart sounds were normal and physiologic splitting of the second heart sound was noted. There were no murmurs, rubs, clicks, or gallops. Abdominal exam revealed normal bowel sounds. The abdomen was soft, non-tender, and without masses, organomegaly, or appreciable enlargement of the abdominal aorta. Examination of the extremities revealed easily palpable radial, femoral and pedal pulses. There was no cyanosis, clubbing or edema. Examination of the skin revealed no evidence of significant rashes, suspicious appearing nevi or other concerning lesions. Neurologically the patient is sedated. He was quite agitated in the emergency department and had altered mentation. No nuchal rigidity. No nystagmus . No facial asymmetry. Sensory motor function cannot be accurately assessed. - Labs CBC & Chem 7: 11/07/18 04:45 11/07/18 04:45 Labs: Abnormal Lab Results - Last 24 Hours (Table) 11/06/18 11/06/18 11/06/18 Range/Units 12:50 16:25 20:23 RBC (4.30-5.90) m/uL Hgb (13.0-17.5) gm/dL Hct (39.0-53.0) % ABG pH (7.35-7.45) ABG pCO2 (35-45) mmHg ABG HCO3 (21-25) mmol/L ABG Total CO2 (19-24) mmol/L ABG O2 Saturation (94-97) % Carbon Dioxide (22-30) mmol/L BUN (9-20) mg/dL Creatinine (0.66-1.25) mg/dL Glucose (74-99) mg/dL POC Glucose (mg/dL) 153 H 157 H 147 H (75-99) mg/dL Magnesium (1.6-2.3) mg/dL Ammonia (<30) umol/L 11/06/18 11/07/18 11/07/18 Range/Units 23:45 03:39 04:45 RBC 3.92 L (4.30-5.90) m/uL Hgb 11.7 L (13.0-17.5) gm/dL Hct 36.3 L (39.0-53.0) % ABG pH (7.35-7.45) ABG pCO2 (35-45) mmHg ABG HCO3 (21-25) mmol/L ABG Total CO2 (19-24) mmol/L ABG O2 Saturation (94-97) % Carbon Dioxide (22-30) mmol/L BUN (9-20) mg/dL Creatinine (0.66-1.25) mg/dL Glucose (74-99) mg/dL POC Glucose (mg/dL) 155 H 141 H (75-99) mg/dL Magnesium (1.6-2.3) mg/dL Ammonia (<30) umol/L 11/07/18 11/07/18 11/07/18 Range/Units 04:45 04:45 04:55 RBC (4.30-5.90) m/uL Hgb (13.0-17.5) gm/dL Hct (39.0-53.0) % ABG pH 7.46 H (7.35-7.45) ABG pCO2 46 H (35-45) mmHg ABG HCO3 33 H (21-25) mmol/L ABG Total CO2 34 H (19-24) mmol/L ABG O2 Saturation 97.5 H (94-97) % Carbon Dioxide 31 H (22-30) mmol/L BUN 24 H (9-20) mg/dL Creatinine 1.40 H (0.66-1.25) mg/dL Glucose 161 H (74-99) mg/dL POC Glucose (mg/dL) (75-99) mg/dL Magnesium 2.4 H (1.6-2.3) mg/dL Ammonia 35 H (<30) umol/L 11/07/18 Range/Units 08:13 RBC (4.30-5.90) m/uL Hgb (13.0-17.5) gm/dL Hct (39.0-53.0) % ABG pH (7.35-7.45) ABG pCO2 (35-45) mmHg ABG HCO3 (21-25) mmol/L ABG Total CO2 (19-24) mmol/L ABG O2 Saturation (94-97) % Carbon Dioxide (22-30) mmol/L BUN (9-20) mg/dL Creatinine (0.66-1.25) mg/dL Glucose (74-99) mg/dL POC Glucose (mg/dL) 166 H (75-99) mg/dL Magnesium (1.6-2.3) mg/dL Ammonia (<30) umol/L Microbiology - Last 24 Hours (Table) 11/04/18 15:11 Gram Stain - Final Sputum Sputum Culture - Final Assessment and Plan Plan: Assessment 1 altered mental status, consider hypoglycemia causing altered mentation addition to possibility of metabolic encephalopathy due to hypoglycemia. The patient has failed to recover his mentation while being off sedation. 2 CT scans have been done over 24-hour period and the CAT scans of been negative. No seizure activity has been noted. Currently on Diprivan at 60 g per KG per minute. A trial of Precedex over Diprivan weaning was done and it failed. This is intubation day #3. The patient will receive another sedation holiday. There is probably a metabolic encephalopathy related to hypoglycemia that occurred on outpatient basis. It's likely the patient was exposed to prolonged hypoglycemia. 2 mild rhabdomyolysis, recovered 3 acute ventilator-dependent respiratory failure, non-hypoxic, not hypercapnic, intubated for airway protection as the patient required high level of sedation and currently the patient on Diprivan to control agitation 4 diabetes mellitus, insulin-dependent with previous bouts of hypoglycemia 5 skin abrasions 6 severe JU noncompliant with CPAP therapy 7 obesity with BMI 40.7 8 BPH 9 hypertension 10 hyperlipidemia 11 peripheral Neuropathy Plan Continue vent support. Sedation holiday. May potentially extubated 5. The patient is able to pass a spontaneous breathing fine and he is able to maintain a adequate airway without agitation. Continue rest of the supportive care. Hold tube feeds for now. We'll continue to follow. Critical care evaluation more than 31 minutes Time with Patient: Greater than 30
[2018-11-07 12:01] LABS: Glucose,Whole Blood 146 mg/dL (75-99)
--- NOTE | 2018-11-07 14:37 | P.PN ---
Subjective Progress Note Date: 11/07/18 This is a 53-year-old male patient of Dr. Castillo. Patient is brought into the ER via EMS when he was found to be combative and noncoherent. Upon arrival he per EMS blood sugar was 38 patient's blood sugar was her first the patient remained combative. At that time patient was intubated in the emergency room for airway precautions. Patient has a past medical history of heart failure, COPD, diabetes mellitus, hyperlipidemia, hypertension, sleep apnea with noncompliance of CPAP machine, neuropathy, bipolar, depression and panic disorder. Chest x-ray completed showing ET tube at the level of the medial clavicle head which is acceptable. Cardiomegaly patchy opacity left mid and lower lung. Early pneumonia not excluded. X-ray of Head and cervical spine completed showing no acute fracture or dislocation evident in the cervical spine. No acute intracranial hemorrhage, mass effect or midline shift is seen. Additional findings above possible right upper lobe pneumonia, cannot exclude thoracic aortic aneurysm. Patient was admitted to the intensive care unit. Dr. Gross was consulted for critical care management. During examination patient remains on mechanical ventilation. Patient is sedated with Diprivan. Per nursing staff no family present. Possible extubation today per critical care. On 11/06/2018 patient was seen and examined in the intensive care unit he is intubated sedated maintained on mechanical ventilation, sedation was held this morning and patient did not have any significant response EEG was ordered by Dr. Agustin, currently patient is back on sedation. On 11/07/2018 patient was seen and examined in the ICU he was extubated this morning and seems to be tolerating well patient is moving all 4 extremities spontaneously however he is not responding at this time Objective - Vital Signs Vital signs: Vital Signs Temp 98.4 F 11/07/18 12:00 Pulse 91 11/07/18 14:00 Resp 21 11/07/18 14:00 BP 184/90 11/07/18 14:00 Pulse Ox 92 L 11/07/18 14:00 Intake & Output 11/06/18 11/07/18 11/07/18 18:59 06:59 18:59 Intake Total 2161.643 1612.474 812.920 Output Total 2105 1135 950 Balance 56.643 477.474 -137.080 Weight 157.6 kg 157.8 kg Intake: IV 200 550 150 0.9NS 100 550 50 Piperacillin-Tazobactam 3 100 100 .375 gm In Sodium Chloride 0.9% 100 ml @ 25 mls/hr IVPB Q8H [facility] Rx#: [id number] Intake, IV Titration 1221.643 582.474 482.920 Amount Propofol 1,000 mg In 421.643 532.474 132.920 Empty Bag 1 bag @ Titrate IV .Q0M [facility] Rx#: [id number] Sodium Chloride 0.9% 1, 800 50 350 000 ml @ 50 mls/hr IV . Q20H [facility] Rx#:[id number] Tube Feeding 530 390 120 Other 210 90 60 Output: Urine 2105 1135 950 Other: Voiding Method Indwelling Catheter Indwelling Catheter Indwelling Catheter # Bowel Movements 1 1 - Exam Head normocephalic and atraumatic Neck supple no JVD no goiter Lungs patient on mechanical ventilation. Diminished breath sounds bilaterally Heart regular rate and rhythm S1-S2, no rub or gallop Abdomen is soft nontender nondistended positive bowel sounds no hepatosplenomegaly Extremities no edema no cyanosis or clubbing Neuro sedation discontinued patient is moving all 4 extremities but not responding to questioning at this time - Labs CBC & Chem 7: 11/07/18 04:45 11/07/18 04:45 Labs: Abnormal Lab Results - Last 24 Hours (Table) 11/06/18 11/06/18 11/06/18 Range/Units 16:25 20:23 23:45 RBC (4.30-5.90) m/uL Hgb (13.0-17.5) gm/dL Hct (39.0-53.0) % ABG pH (7.35-7.45) ABG pCO2 (35-45) mmHg ABG HCO3 (21-25) mmol/L ABG Total CO2 (19-24) mmol/L ABG O2 Saturation (94-97) % Carbon Dioxide (22-30) mmol/L BUN (9-20) mg/dL Creatinine (0.66-1.25) mg/dL Glucose (74-99) mg/dL POC Glucose (mg/dL) 157 H 147 H 155 H (75-99) mg/dL Magnesium (1.6-2.3) mg/dL Ammonia (<30) umol/L 11/07/18 11/07/18 11/07/18 Range/Units 03:39 04:45 04:45 RBC 3.92 L (4.30-5.90) m/uL Hgb 11.7 L (13.0-17.5) gm/dL Hct 36.3 L (39.0-53.0) % ABG pH (7.35-7.45) ABG pCO2 (35-45) mmHg ABG HCO3 (21-25) mmol/L ABG Total CO2 (19-24) mmol/L ABG O2 Saturation (94-97) % Carbon Dioxide 31 H (22-30) mmol/L BUN 24 H (9-20) mg/dL Creatinine 1.40 H (0.66-1.25) mg/dL Glucose 161 H (74-99) mg/dL POC Glucose (mg/dL) 141 H (75-99) mg/dL Magnesium 2.4 H (1.6-2.3) mg/dL Ammonia (<30) umol/L 11/07/18 11/07/18 11/07/18 Range/Units 04:45 04:55 08:13 RBC (4.30-5.90) m/uL Hgb (13.0-17.5) gm/dL Hct (39.0-53.0) % ABG pH 7.46 H (7.35-7.45) ABG pCO2 46 H (35-45) mmHg ABG HCO3 33 H (21-25) mmol/L ABG Total CO2 34 H (19-24) mmol/L ABG O2 Saturation 97.5 H (94-97) % Carbon Dioxide (22-30) mmol/L BUN (9-20) mg/dL Creatinine (0.66-1.25) mg/dL Glucose (74-99) mg/dL POC Glucose (mg/dL) 166 H (75-99) mg/dL Magnesium (1.6-2.3) mg/dL Ammonia 35 H (<30) umol/L 11/07/18 Range/Units 11:59 RBC (4.30-5.90) m/uL Hgb (13.0-17.5) gm/dL Hct (39.0-53.0) % ABG pH (7.35-7.45) ABG pCO2 (35-45) mmHg ABG HCO3 (21-25) mmol/L ABG Total CO2 (19-24) mmol/L ABG O2 Saturation (94-97) % Carbon Dioxide (22-30) mmol/L BUN (9-20) mg/dL Creatinine (0.66-1.25) mg/dL Glucose (74-99) mg/dL POC Glucose (mg/dL) 146 H (75-99) mg/dL Magnesium (1.6-2.3) mg/dL Ammonia (<30) umol/L Microbiology - Last 24 Hours (Table) 11/04/18 15:11 Gram Stain - Final Sputum Sputum Culture - Final Assessment and Plan Plan: 1. Altered mental status with agitation. Possibly due to hypoglycemia with possibility of metabolic encephalopathy. Patient is currently on mechanical ventilation and sedated. Blood sugars have been improved. 2. Acute ventilator-dependent respiratory failure. Patient currently sedated with Diprivan. Per nursing staff possible extubation today 3. Possible left lower lobe pneumonia. Chest x-ray completed showing patchy opacities in the left mid and lower lobe early pneumonia is not excluded. Patient currently on Zosyn. 4. Hypoglycemia. Initial blood sugar 38. Patient currently on D5 half-normal saline. Blood sugars have improved. Hemoglobin A1c 8.0 5. Rhabdomyolysis. Total creatinine kinase 1282 6. Elevated ammonia level. Initial ammonia level 55. Repeat 42. Continue to monitor closely 7. Acute kidney injury. Creatinine 1.58 and bun 34. Continue to monitor closely. 8. Diabetes mellitus type 2. Per EMS had previous episodes of hypoglycemia. currently on D5 half-normal saline. Patient is also on sliding scale coverage with blood sugar checks every 4 hours 9. Obstructive sleep apnea. Patient noncompliant with CPAP 10. Skin abrasions 11. History of BPH 12. Essential hypertension 13. History of hyperlipidemia 14. Peripheral neuropathy Dr. Neal following for critical care Patient was extubated this morning and seems to be tolerating well A.m. labs ordered DVT prophylaxis heparin. GI prophylaxis Protonix
[2018-11-07] MEDS: SODIUM CHLORIDE 0.9% 1,000 ML IV SCH (15:30)
[2018-11-07 17:09] LABS: Glucose,Whole Blood 138 mg/dL (75-99)
[2018-11-07 20:27] LABS: Glucose,Whole Blood 134 mg/dL (75-99)
[2018-11-07] MEDS: TAMSULOSIN 0.4 MG CAP.ER.24H PO SCH (20:29)
[2018-11-07] MEDS: HALOPERIDOL LACTATE 5 MG/ML 1 ML VIAL IVP PRN (20:35)
[2018-11-07] MEDS: hydrALAZINE HCL 20 MG/ML 1 ML VIAL IVP PRN (22:38)
[2018-11-08 00:04] LABS: Glucose,Whole Blood 124 mg/dL (75-99)
[2018-11-08] MEDS: INSULIN ASPART 100 UNIT/ML 1 ML 10 ML VIAL SQ SCH ×6 (01:42→20:45)
[2018-11-08] MEDS: HEPARIN SODIUM,PORCINE 5,000 UNIT/ML 1 ML VIAL SQ SCH ×3 (01:43→16:52)
[2018-11-08] MEDS: IPRATROPIUM-ALBUTEROL 3 ML NEB INHALATION SCH ×6 (03:11→23:01)
[2018-11-08] MEDS: HALOPERIDOL LACTATE 5 MG/ML 1 ML VIAL IVP PRN ×3 (03:24→21:53)
[2018-11-08] MEDS: PIPERACILLIN-TAZOBACTAM 3.375 GM in SODIUM CHLORIDE 0.9% 100 ML IVPB SCH ×3 (03:24→20:03)
[2018-11-08 05:06] LABS: Basophils % (A) 1 %; Eosinophils # (A) 0.2 k/uL (0-0.7); Eosinophils % (A) 4 %; HCT 39.8 % (39.0-53.0); HGB 12.2 gm/dL (13.0-17.5); Hypochromasia Slight; Lymphocytes # (A) 0.8 k/uL (1.0-4.8); Lymphocytes % (A) 15 %; MCH 28.9 pg (25.0-35.0); MCHC 30.5 g/dL (31.0-37.0); MCV 94.7 fL (80.0-100.0); Mean Platelet Volume 6.4; Monocytes # (A) 0.3 k/uL (0-1.0); Monocytes % (A) 5 %; Neutrophils # (A) 3.9 k/uL (1.3-7.7); Neutrophils % (A) 73 %; Platelet Count 249 k/uL (150-450); RDW 13.8 % (11.5-15.5); WBC 5.3 k/uL (3.8-10.6)
[2018-11-08 05:19] LABS: Calcium 8.9 mg/dL (8.4-10.2); Magnesium 2.1 mg/dL (1.6-2.3); Phosphorus 3.2 mg/dL (2.5-4.5); Potassium 4.6 mmol/L (3.5-5.1)
--- NOTE | 2018-11-08 06:42 | XR ---
EXAMINATION TYPE: XR chest 1V DATE OF EXAM: 11/08/2018 CLINICAL HISTORY: Difficulty breathing progress study. TECHNIQUE: Single AP portable semiupright view of the chest is obtained. COMPARISON: Chest x-ray from one day earlier and older studies. FINDINGS: There is interval extubation with removal of endotracheal and orogastric tubes. There is p ersistent cardiomegaly. There is persistent patchy bibasilar atelectasis and/or infiltrate. Upper velasquez gs remain clear without pneumothorax. No pleural effusion is evident. Osseous structures are intact. IMPRESSION: Interval extubation, persistent cardiomegaly with patchy bibasilar atelectasis and/or inf iltrate.
[2018-11-08] MEDS: hydrALAZINE HCL 20 MG/ML 1 ML VIAL IVP PRN ×3 (06:53→18:50)
[2018-11-08] MEDS: PANTOPRAZOLE 40 MG/10 ML VIAL IV SCH (08:20)
[2018-11-08 08:47] LABS: Glucose,Whole Blood 132 mg/dL (75-99)
[2018-11-08] MEDS: CARVEDILOL 12.5 MG TAB PO SCH ×2 (10:01→16:53)
[2018-11-08] MEDS: DULoxetine HCL 60 MG CAPSULE.DR PO SCH (10:02)
[2018-11-08] MEDS: ASPIRIN 81 MG PO SCH ×2 (10:02→16:53)
[2018-11-08] MEDS: buPROPion XL 300 MG TAB.ER.24H PO SCH (10:02)
[2018-11-08] MEDS: GABAPENTIN 300 MG CAP PO SCH ×3 (10:02→21:54)
--- NOTE | 2018-11-08 11:21 | P.PN ---
Subjective Progress Note Date: 11/08/18 Principal diagnosis: Altered mental status, hypoglycemia, Patient was evaluated today on 11/08/2018, he was extubated yesterday by Dr. Agustin. Remains on Ventimask, patient is saturating well, however continues to have agitation, intermittent episodes of unresponsiveness, thrashing, patient was given Haldol early this morning, and that seemed to help him significantly to calm down. He had 2 scans of the brain which came back negative. Patient tolerated the extubation well yesterday. However his mental status remains concerning, and to me looks like we are dealing with a picture of metabolic encephalopathy. No further episodes of hypoglycemia, no seizure activity, no clonus. All labs today were reviewed, relatively normal CBC, relatively normal basic metabolic profile. Blood sugar is 139 BUN is 18 creatinine is 1.19. Ammonia is minimally elevated at 42. Objective - Vital Signs Vital signs: Vital Signs Temp 97.9 F 11/08/18 08:00 Pulse 88 11/08/18 10:00 Resp 17 11/08/18 10:00 BP 136/80 11/08/18 10:00 Pulse Ox 95 11/08/18 10:00 Intake & Output 11/07/18 11/08/18 11/08/18 18:59 06:59 18:59 Intake Total 962.920 650 200 Output Total 1270 925 485 Balance -307.080 -275 -285 Intake: IV 150 650 200 0.9NS 50 Piperacillin-Tazobactam 3 100 100 .375 gm In Sodium Chloride 0.9% 100 ml @ 25 mls/hr IVPB Q8H [facility] Rx#: [id number] Sodium Chloride 0.9% 1, 550 200 000 ml @ 50 mls/hr IV . Q20H [facility] Rx#:[id number] Intake, IV Titration 632.920 Amount Propofol 1,000 mg In 132.920 Empty Bag 1 bag @ Titrate IV .Q0M [facility] Rx#: [id number] Sodium Chloride 0.9% 1, 500 000 ml @ 50 mls/hr IV . Q20H [facility] Rx#:[id number] Tube Feeding 120 Other 60 Output: Urine 1270 925 485 Other: Voiding Method Indwelling Catheter Indwelling Catheter Indwelling Catheter - Exam Physical Exam: Revealed a 53-year-old white male, obese, on Ventimask, opens eyes, but does not follow any instructions. Head: Atraumatic, normocephalic. HEENT:[Neck is supple.] [No neck masses.] [No thyromegaly.] [No JVD.] PERRLA, EOMI, no icterus. Chest: [Clear throughout, no crackles, no rhonchi, no wheezes.] Cardiac Exam: [Normal S1 and S2, no S3 gallop, no murmur.] Abdomen: Obese, [Soft, nontender, no megaly, no rebound, no guarding, normal bowel sounds.] Extremities: [No clubbing, no edema, no cyanosis.] Abrasions noted and superficial ulceration noted in the right lower extremity area. Neurological Exam: Obtunded, opens eyes to verbal stimuli, does not follow any instructions, no nuchal rigidity, no nystagmus, no facial asymmetry. Psychiatric: Cannot be assessed, patient is obtunded. Skin: As noted above under extremities. Otherwise no rashes. Lymphatics: No lymphadenopathy. - Labs CBC & Chem 7: 11/08/18 04:42 11/08/18 04:42 Labs: Abnormal Lab Results - Last 24 Hours (Table) 11/07/18 11/07/18 11/07/18 Range/Units 11:59 17:07 20:26 RBC (4.30-5.90) m/uL Hgb (13.0-17.5) gm/dL MCHC (31.0-37.0) g/dL Lymphocytes # (1.0-4.8) k/uL Chloride (98-107) mmol/L Glucose (74-99) mg/dL POC Glucose (mg/dL) 146 H 138 H 134 H (75-99) mg/dL Ammonia (<30) umol/L 11/08/18 11/08/18 11/08/18 Range/Units 00:03 04:42 04:42 RBC 4.20 L (4.30-5.90) m/uL Hgb 12.2 L (13.0-17.5) gm/dL MCHC 30.5 L (31.0-37.0) g/dL Lymphocytes # 0.8 L (1.0-4.8) k/uL Chloride 113 H (98-107) mmol/L Glucose 139 H (74-99) mg/dL POC Glucose (mg/dL) 124 H (75-99) mg/dL Ammonia (<30) umol/L 11/08/18 11/08/18 Range/Units 04:42 08:27 RBC (4.30-5.90) m/uL Hgb (13.0-17.5) gm/dL MCHC (31.0-37.0) g/dL Lymphocytes # (1.0-4.8) k/uL Chloride (98-107) mmol/L Glucose (74-99) mg/dL POC Glucose (mg/dL) 132 H (75-99) mg/dL Ammonia 42 H (<30) umol/L Assessment and Plan Assessment: Impression: 1 acute ventilator-dependent respiratory failure, not hypoxic and not hypercapnic, intubated only to protect his airways and to control agitation on the prevent drip. 2 altered mental status secondary to hypoglycemia/metabolic encephalopathy. 3 type 2 diabetes, insulin-dependent. 4 obesity with BMI of 40.7 5 history of hypertension 6 hyper lipidemia 7 peripheral neuropathy 8 obstructive sleep apnea on CPAP at home questionable compliance. 9 mild rhabdomyolysis, resolved. 10 possible aspiration pneumonia, remains on Zosyn. Recommendation: Patient was extubated yesterday, tolerated the extubation quite well, continues to have encephalopathic features on examination today, patient continues to have intermittent episodes of agitation requiring Haldol, he was extubated uneventfully and tolerated the extubation well, however I still believe the patient may have to be considered for transfer to tertiary care center for further evaluation of mental status. We will let the admitting physician no, in the meantime we'll continue residence supportive care measures. Continue to monitor closely, not quite ready to be transferred out of the ICU. All his meds were reviewed, patient cannot take medications per mouth, he remains on IV Zosyn, may have aspirated initially on presentation. Chest x-ray this morning showed interval extubation, patchy bibasilar atelectasis, questionable infiltrates. Patient remains critically ill, and again may have to seriously consider transfer because of his persistent encephalopathic picture. Time with Patient: Less than 30
[2018-11-08 11:35] LABS: Glucose,Whole Blood 171 mg/dL (75-99)
[2018-11-08] MEDS: SODIUM CHLORIDE 0.9% 1,000 ML IV SCH (12:02)
[2018-11-08 17:18] LABS: Glucose,Whole Blood 164 mg/dL (75-99)
--- NOTE | 2018-11-08 19:30 | P.PN ---
Subjective Progress Note Date: 11/08/18 This is a 53-year-old male patient of Dr. Castillo. Patient is brought into the ER via EMS when he was found to be combative and noncoherent. Upon arrival he per EMS blood sugar was 38 patient's blood sugar was her first the patient remained combative. At that time patient was intubated in the emergency room for airway precautions. Patient has a past medical history of heart failure, COPD, diabetes mellitus, hyperlipidemia, hypertension, sleep apnea with noncompliance of CPAP machine, neuropathy, bipolar, depression and panic disorder. Chest x-ray completed showing ET tube at the level of the medial clavicle head which is acceptable. Cardiomegaly patchy opacity left mid and lower lung. Early pneumonia not excluded. X-ray of Head and cervical spine completed showing no acute fracture or dislocation evident in the cervical spine. No acute intracranial hemorrhage, mass effect or midline shift is seen. Additional findings above possible right upper lobe pneumonia, cannot exclude thoracic aortic aneurysm. Patient was admitted to the intensive care unit. Dr. Gross was consulted for critical care management. During examination patient remains on mechanical ventilation. Patient is sedated with Diprivan. Per nursing staff no family present. Possible extubation today per critical care. On 11/06/2018 patient was seen and examined in the intensive care unit he is intubated sedated maintained on mechanical ventilation, sedation was held this morning and patient did not have any significant response EEG was ordered by Dr. Agustin, currently patient is back on sedation. On 11/07/2018 patient was seen and examined in the ICU he was extubated this morning and seems to be tolerating well patient is moving all 4 extremities spontaneously however he is not responding at this time. On 11/08/2018 patient was seen and examined in the ICU he was extubated yesterday he is maintained on Ventimask he is moving all 4 extremities with mild agitation he is not responding to any questioning, he was given Haldol earlier in the day due to severe agitation, patient may have evidence of metabolic encephalopathy, no neurology service in the hospital at this time if not improving still a.m. May need to transfer to a tertiary care center Objective - Vital Signs Vital signs: Vital Signs Temp 99.7 F H 11/08/18 16:00 Pulse 75 11/08/18 19:00 Resp 23 11/08/18 19:00 BP 164/79 01/21/19 19:00 Pulse Ox 96 11/08/18 19:00 Intake & Output 11/08/18 11/08/18 11/09/18 06:59 18:59 06:59 Intake Total 650 660 50 Output Total 925 1020 35 Balance -275 -360 15 Intake: IV 650 600 50 Piperacillin-Tazobactam 3 100 100 .375 gm In Sodium Chloride 0.9% 100 ml @ 25 mls/hr IVPB Q8H LISA Rx#: [id number] Sodium Chloride 0.9% 1, 550 500 50 000 ml @ 50 mls/hr IV . Q20H LISA Rx#:[id number] Other 60 Output: Urine 925 1020 35 Other: Voiding Method Indwelling Catheter Indwelling Catheter - Exam Head normocephalic and atraumatic Neck supple no JVD no goiter Lungs patient on mechanical ventilation. Diminished breath sounds bilaterally Heart regular rate and rhythm S1-S2, no rub or gallop Abdomen is soft nontender nondistended positive bowel sounds no hepatosplenomegaly Extremities no edema no cyanosis or clubbing Neuro sedation discontinued patient is moving all 4 extremities but not responding to questioning at this time - Labs CBC & Chem 7: 11/08/18 04:42 11/08/18 04:42 Labs: Abnormal Lab Results - Last 24 Hours (Table) 11/07/18 11/08/18 11/08/18 Range/Units 20:26 00:03 04:42 RBC 4.20 L (4.30-5.90) m/uL Hgb 12.2 L (13.0-17.5) gm/dL MCHC 30.5 L (31.0-37.0) g/dL Lymphocytes # 0.8 L (1.0-4.8) k/uL Chloride (98-107) mmol/L Glucose (74-99) mg/dL POC Glucose (mg/dL) 134 H 124 H (75-99) mg/dL Ammonia (<30) umol/L 11/08/18 11/08/18 11/08/18 Range/Units 04:42 04:42 08:27 RBC (4.30-5.90) m/uL Hgb (13.0-17.5) gm/dL MCHC (31.0-37.0) g/dL Lymphocytes # (1.0-4.8) k/uL Chloride 113 H (98-107) mmol/L Glucose 139 H (74-99) mg/dL POC Glucose (mg/dL) 132 H (75-99) mg/dL Ammonia 42 H (<30) umol/L 11/08/18 11/08/18 Range/Units 11:33 16:58 RBC (4.30-5.90) m/uL Hgb (13.0-17.5) gm/dL MCHC (31.0-37.0) g/dL Lymphocytes # (1.0-4.8) k/uL Chloride (98-107) mmol/L Glucose (74-99) mg/dL POC Glucose (mg/dL) 171 H 164 H (75-99) mg/dL Ammonia (<30) umol/L Assessment and Plan Plan: 1. Altered mental status with agitation. Possibly due to hypoglycemia with possibility of metabolic encephalopathy. Patient is currently off mechanical ventilation and sedated. Blood sugars have been improved. However mental status has not improved, computed tomography scan of the brain without any acute abnormality, there is no neurology service at this time patient may need to be transferred to a tertiary care center in a.m. if not improving 2. Acute ventilator-dependent respiratory failure. Patient currently sedated with Diprivan. Per nursing staff possible extubation today 3. Possible left lower lobe pneumonia. Chest x-ray completed showing patchy opacities in the left mid and lower lobe early pneumonia is not excluded. Patient currently on Zosyn. 4. Hypoglycemia. Initial blood sugar 38. Patient currently on D5 half-normal saline. Blood sugars have improved. Hemoglobin A1c 8.0 5. Rhabdomyolysis. Total creatinine kinase 1282 6. Elevated ammonia level. Initial ammonia level 55. Repeat 42. Continue to monitor closely 7. Acute kidney injury. Creatinine 1.58 and bun 34. Continue to monitor closely. 8. Diabetes mellitus type 2. Per EMS had previous episodes of hypoglycemia. currently on D5 half-normal saline. Patient is also on sliding scale coverage with blood sugar checks every 4 hours 9. Obstructive sleep apnea. Patient noncompliant with CPAP 10. Skin abrasions 11. History of BPH 12. Essential hypertension 13. History of hyperlipidemia 14. Peripheral neuropathy Dr. Pinon following for critical care Patient was extubated this morning and seems to be tolerating well A.m. labs ordered DVT prophylaxis heparin. GI prophylaxis Protonix
[2018-11-08] MEDS: TAMSULOSIN 0.4 MG CAP.ER.24H PO SCH (20:16)
[2018-11-08 20:24] LABS: Glucose,Whole Blood 166 mg/dL (75-99)
[2018-11-09 00:01] LABS: Glucose,Whole Blood 166 mg/dL (75-99)
--- NOTE | 2018-11-09 00:06 | EEG ---
ELECTROENCEPHALOGRAM REPORT DATE OF SERVICE: 11/08/2018. ELECTROENCEPHALOGRAM (EEG): TECHNIQUE: A routine 18-channel EEG was performed without video using the 10-20 international system. HISTORY: Patient presented with altered mental status and low blood sugar. Patient was initially intubated and then extubated on 11/07/2018. CURRENT MEDICATIONS: 1. Wellbutrin. 2. Gabapentin. 3. Haldol. 4. Cymbalta. STUDY DURATION: 36 minutes. FINDINGS: Please note that this recording was of low amplitude and interpretation was performed at 5 microvolt sensitivity. BACKGROUND: The background activity consisted of unsustained 7-8 Hz rhythmic waveforms with some intermixed theta range slowing. ACTIVATION: Hyperventilation not performed. PHOTIC STIMULATION: No driving seen. SLEEP: Drowsy. ABNORMALITIES: 1. Diffuse synchronous and asynchronous 3-6 Hz slow wave activity was seen, at times more frontally predominant. 2. Occasional to frequent moderate-voltage triphasic waves were seen. 3. Occasional frontal intermittent rhythmic delta activity was seen (FIRDA) with intermixed triphasic waves mentioned in number 2. IMPRESSION: Abnormal EEG. The triphasic waves mentioned above are not epileptiform in nature. Triphasic waves can be seen in the setting of a metabolic encephalopathy. The diffuse synchronous and asynchronous 3-6 Hz theta/delta range slowing mentioned above as well as the frontally predominant delta range slowing is not epileptiform in nature. In combination, these findings indicate mild to moderate diffuse cerebral dysfunction as may be seen in a toxometabolic encephalopathy. No seizures were recorded. No epileptiform activity was present. MMODL / IJN: [id number] /
[2018-11-09] MEDS: INSULIN ASPART 100 UNIT/ML 1 ML 10 ML VIAL SQ SCH ×7 (00:24→23:53)
[2018-11-09] MEDS: hydrALAZINE HCL 20 MG/ML 1 ML VIAL IVP PRN ×3 (00:24→21:09)
[2018-11-09] MEDS: HEPARIN SODIUM,PORCINE 5,000 UNIT/ML 1 ML VIAL SQ SCH ×4 (00:24→23:06)
[2018-11-09] MEDS: IPRATROPIUM-ALBUTEROL 3 ML NEB INHALATION SCH ×6 (03:10→23:49)
[2018-11-09 04:10] LABS: Glucose,Whole Blood 165 mg/dL (75-99)
[2018-11-09] MEDS: PIPERACILLIN-TAZOBACTAM 3.375 GM in SODIUM CHLORIDE 0.9% 100 ML IVPB SCH ×3 (05:10→21:00)
[2018-11-09 05:18] LABS: Basophils % (A) 1 %; Eosinophils # (A) 0.2 k/uL (0-0.7); Eosinophils % (A) 3 %; HCT 39.1 % (39.0-53.0); HGB 12.2 gm/dL (13.0-17.5); Lymphocytes # (A) 0.7 k/uL (1.0-4.8); Lymphocytes % (A) 15 %; MCH 29.1 pg (25.0-35.0); MCHC 31.1 g/dL (31.0-37.0); MCV 93.5 fL (80.0-100.0); Mean Platelet Volume 6.3; Monocytes # (A) 0.3 k/uL (0-1.0); Monocytes % (A) 7 %; Neutrophils # (A) 3.4 k/uL (1.3-7.7); Neutrophils % (A) 71 %; Platelet Count 263 k/uL (150-450); RBC 4.18 m/uL (4.30-5.90); RDW 13.8 % (11.5-15.5); WBC 4.8 k/uL (3.8-10.6)
[2018-11-09] MEDS: HALOPERIDOL LACTATE 5 MG/ML 1 ML VIAL IVP PRN ×3 (05:24→23:03)
[2018-11-09 05:29] LABS: Magnesium 2.2 mg/dL (1.6-2.3); Phosphorus 2.8 mg/dL (2.5-4.5); Potassium 4.2 mmol/L (3.5-5.1)
[2018-11-09 08:00] LABS: Glucose,Whole Blood 142 mg/dL (75-99)
--- NOTE | 2018-11-09 08:16 | XR ---
EXAMINATION TYPE: XR chest 1V DATE OF EXAM: 11/09/2018 COMPARISON: 11/08/2018 HISTORY: Short of breath TECHNIQUE: Single frontal view of the chest is obtained. FINDINGS: Heart is prominent there is an NG tube. Mediastinum is somewhat prominent but stable. Patch y bilateral infiltrate or slightly improved. No pneumothorax. IMPRESSION: Cardiomegaly with bilateral patchy infiltrate slightly improved.
[2018-11-09] MEDS: GABAPENTIN 300 MG CAP PO SCH ×3 (08:56→21:00)
[2018-11-09] MEDS: CARVEDILOL 12.5 MG TAB PO SCH ×2 (08:56→16:11)
[2018-11-09] MEDS: PANTOPRAZOLE 40 MG/10 ML VIAL IV SCH (08:56)
[2018-11-09] MEDS: ASPIRIN 81 MG PO SCH (08:57)
[2018-11-09] MEDS: DULoxetine HCL 60 MG CAPSULE.DR PO SCH (08:57)
[2018-11-09] MEDS: buPROPion XL 300 MG TAB.ER.24H PO SCH (08:57)
[2018-11-09] MEDS: SODIUM CHLORIDE 0.9% 1,000 ML IV SCH (09:07)
[2018-11-09 10:11] LABS: ABG Base Excess 5.8 mmol/L; ABG HCO3 30 mmol/L (21-25); ABG Oxygen Saturation 89.7 % (94-97); ABG PCO2 43 mmHg (35-45); ABG PH 7.45 (7.35-7.45); ABG TCO2 31 mmol/L (19-24)
[2018-11-09 10:19] LABS: ABG PO2 54 mmHg (83-108)
[2018-11-09 10:47] VITALS: BMI 47.2
--- NOTE | 2018-11-09 10:47 | P.PN ---
Subjective Progress Note Date: 11/09/18 This is a 53-year-old male patient of Dr. Castillo. Patient is brought into the ER via EMS when he was found to be combative and noncoherent. Upon arrival he per EMS blood sugar was 38 patient's blood sugar was her first the patient remained combative. At that time patient was intubated in the emergency room for airway precautions. Patient has a past medical history of heart failure, COPD, diabetes mellitus, hyperlipidemia, hypertension, sleep apnea with noncompliance of CPAP machine, neuropathy, bipolar, depression and panic disorder. Chest x-ray completed showing ET tube at the level of the medial clavicle head which is acceptable. Cardiomegaly patchy opacity left mid and lower lung. Early pneumonia not excluded. X-ray of Head and cervical spine completed showing no acute fracture or dislocation evident in the cervical spine. No acute intracranial hemorrhage, mass effect or midline shift is seen. Additional findings above possible right upper lobe pneumonia, cannot exclude thoracic aortic aneurysm. Patient was admitted to the intensive care unit. Dr. Gross was consulted for critical care management. During examination patient remains on mechanical ventilation. Patient is sedated with Diprivan. Per nursing staff no family present. Possible extubation today per critical care. On 11/06/2018 patient was seen and examined in the intensive care unit he is intubated sedated maintained on mechanical ventilation, sedation was held this morning and patient did not have any significant response EEG was ordered by Dr. Agustin, currently patient is back on sedation. On 11/07/2018 patient was seen and examined in the ICU he was extubated this morning and seems to be tolerating well patient is moving all 4 extremities spontaneously however he is not responding at this time. On 11/08/2018 patient was seen and examined in the ICU he was extubated yesterday he is maintained on Ventimask he is moving all 4 extremities with mild agitation he is not responding to any questioning, he was given Haldol earlier in the day due to severe agitation, patient may have evidence of metabolic encephalopathy, no neurology service in the hospital at this time if not improving still a.m. May need to transfer to a tertiary care center 11/09/2018 patient remains in the ICU. Currently on a Ventimask. Patient opens his eyes to his name. He is able to follow a few simple commands such as sticking out his tongue and wiggling his toes. This is improvement since yesterday. Case discussed with critical care doctor, Dr. Rivera. The recommending to continue to monitor patient for another 24 hours to further evaluate patient's mentation. If no improvement or worsens likely will need to transfer to a tertiary care center such as [facility] possibly tomorrow. EEG showed no seizure activity. Chest x-ray showing improving. Ammonia level is down to 36. He did have a temp of 100.2 yesterday afternoon Objective - Vital Signs Vital signs: Vital Signs Temp 99.3 F 11/09/18 08:00 Pulse 85 11/09/18 10:00 Resp 22 11/09/18 10:00 BP 178/89 11/09/18 10:00 Pulse Ox 96 11/09/18 10:00 Intake & Output 11/08/18 11/09/18 11/09/18 18:59 06:59 18:59 Intake Total 660 600 380 Output Total 1020 775 300 Balance -360 -175 80 Weight 157.8 kg Intake: IV 600 600 200 Piperacillin-Tazobactam 3 100 .375 gm In Sodium Chloride 0.9% 100 ml @ 25 mls/hr IVPB Q8H LISA Rx#: [id number] Sodium Chloride 0.9% 1, 500 600 200 000 ml @ 50 mls/hr IV . Q20H LISA Rx#:[id number] Oral 180 Other 60 Output: Urine 1020 775 300 Other: Voiding Method Indwelling Catheter Indwelling Catheter Indwelling Catheter - Exam Head normocephalic Neck supple Lungs clear to auscultation bilaterally no wheezing or crackles Heart regular rate and rhythm S1-S2, no rub or gallop Abdomen is soft nontender nondistended positive bowel sounds no hepatosplenomegaly Extremities no edema Neuro opens eyes to name and follows simple commands - Labs CBC & Chem 7: 11/09/18 04:46 11/09/18 04:46 Labs: Abnormal Lab Results - Last 24 Hours (Table) 11/08/18 11/08/18 11/08/18 Range/Units 11:33 16:58 20:22 RBC (4.30-5.90) m/uL Hgb (13.0-17.5) gm/dL Lymphocytes # (1.0-4.8) k/uL ABG pO2 (83-108) mmHg ABG HCO3 (21-25) mmol/L ABG Total CO2 (19-24) mmol/L ABG O2 Saturation (94-97) % Sodium (137-145) mmol/L Chloride (98-107) mmol/L BUN (9-20) mg/dL Glucose (74-99) mg/dL POC Glucose (mg/dL) 171 H 164 H 166 H (75-99) mg/dL Ammonia (<30) umol/L 11/08/18 11/09/18 11/09/18 Range/Units 23:59 04:08 04:46 RBC 4.18 L (4.30-5.90) m/uL Hgb 12.2 L (13.0-17.5) gm/dL Lymphocytes # 0.7 L (1.0-4.8) k/uL ABG pO2 (83-108) mmHg ABG HCO3 (21-25) mmol/L ABG Total CO2 (19-24) mmol/L ABG O2 Saturation (94-97) % Sodium (137-145) mmol/L Chloride (98-107) mmol/L BUN (9-20) mg/dL Glucose (74-99) mg/dL POC Glucose (mg/dL) 166 H 165 H (75-99) mg/dL Ammonia (<30) umol/L 11/09/18 11/09/18 11/09/18 Range/Units 04:46 04:46 07:58 RBC (4.30-5.90) m/uL Hgb (13.0-17.5) gm/dL Lymphocytes # (1.0-4.8) k/uL ABG pO2 (83-108) mmHg ABG HCO3 (21-25) mmol/L ABG Total CO2 (19-24) mmol/L ABG O2 Saturation (94-97) % Sodium 146 H (137-145) mmol/L Chloride 113 H (98-107) mmol/L BUN 22 H (9-20) mg/dL Glucose 156 H (74-99) mg/dL POC Glucose (mg/dL) 142 H (75-99) mg/dL Ammonia 36 H (<30) umol/L 11/09/18 Range/Units 10:05 RBC (4.30-5.90) m/uL Hgb (13.0-17.5) gm/dL Lymphocytes # (1.0-4.8) k/uL ABG pO2 54 L* (83-108) mmHg ABG HCO3 30 H (21-25) mmol/L ABG Total CO2 31 H (19-24) mmol/L ABG O2 Saturation 89.7 L (94-97) % Sodium (137-145) mmol/L Chloride (98-107) mmol/L BUN (9-20) mg/dL Glucose (74-99) mg/dL POC Glucose (mg/dL) (75-99) mg/dL Ammonia (<30) umol/L Assessment and Plan Assessment: 1. Altered mental status with agitation. Possibly due to hypoglycemia with possibility of metabolic encephalopathy. Patient is currently off mechanical ventilation and sedated. Blood sugars have been improved. computed tomography scan of the brain without any acute abnormality, there is no neurology service at this time patient may need to be transferred to a tertiary care center in a.m. if not improving. Patient had some improvement today. We'll continue to monitor and reassess tomorrow about possible transfer to [facility] if there is no further improvement in mentation. 2. Acute ventilator-dependent respiratory failure: Not hypoxic and not hypercapnic. Intubated only to protect his airways. Patient extubated on 11/07 3. Possible left lower lobe pneumonia. Chest x-ray completed showing patchy opacities in the left mid and lower lobe early pneumonia is not excluded. Patient currently on Zosyn. Chest x-ray showing improvement 4. Hypoglycemia. Initial blood sugar 38. Blood sugars have improved. Hemoglobin A1c 8.0 5. Rhabdomyolysis. Total creatinine kinase 1282 6. Elevated ammonia level. Initial ammonia level 55. Ammonia level down from 42-36 7. Acute kidney injury. Improved with IV fluids 8. Diabetes mellitus type 2. Per EMS had previous episodes of hypoglycemia. currently on D5 half-normal saline. Patient is also on sliding scale coverage with blood sugar checks every 4 hours 9. Obstructive sleep apnea. Patient noncompliant with CPAP 10. Skin abrasions 11. History of BPH 12. Essential hypertension 13. History of hyperlipidemia 14. Peripheral neuropathy GI prophylaxis Protonix and DVT prophylaxis subcu heparin I performed an examination of the patient and discussed their management with the physician Laboratory Chief. I have reviewed the Physician Laboratory Chief's notes and agree with the documented findings and plan of care
--- NOTE | 2018-11-09 11:09 | P.PN ---
Subjective Progress Note Date: 11/09/18 Principal diagnosis: Altered mental status, hypoglycemia, Patient was evaluated today on 11/08/2018, he was extubated yesterday by Dr. Agustin. Remains on Ventimask, patient is saturating well, however continues to have agitation, intermittent episodes of unresponsiveness, thrashing, patient was given Haldol early this morning, and that seemed to help him significantly to calm down. He had 2 scans of the brain which came back negative. Patient tolerated the extubation well yesterday. However his mental status remains concerning, and to me looks like we are dealing with a picture of metabolic encephalopathy. No further episodes of hypoglycemia, no seizure activity, no clonus. All labs today were reviewed, relatively normal CBC, relatively normal basic metabolic profile. Blood sugar is 139 BUN is 18 creatinine is 1.19. Ammonia is minimally elevated at 42. Patient was reevaluated today patient remains in the intensive care unit, he remains on a 40% Ventimask, patient is about the same overall except that his slight improvement in his mental status. Actually he opened his eyes upon calling his name, he followed simple instructions like sticking out his tongue, and he was able to wiggle his toes upon request. At least there is a slight improvement in his mental status today, however the patient continues to have extreme lethargy, and I went ahead and ordered an ABG on the patient. It showed a low pO2 on room air, pO2 was 54, pCO2 was 43, and pH of 7.45. This ABG was done on room air, hence I recommended placing the patient on 28% Ventimask. Hemodynamically the patient is stable. His CBC is relatively normal. His electrolytes are normal. His renal profile showed a BUN of 22 creatinine of 1.14. GFR is 73, normal. No children is 156 today. Has been running in that range over the last 24 hours. Ammonia level is 36, patient had a nasogastric tube placed yesterday, and I plan to see them with the nasogastric tube, and plan to start some of the medications which were placed on hold orally. We then discussed the option of potentially transferring the patient to a tertiary care center today, however since we are noticing slight improvement in mental status, we will hold back on plans to transfer. Objective - Vital Signs Vital signs: Vital Signs Temp 99.3 F 11/09/18 08:00 Pulse 85 11/09/18 10:00 Resp 22 11/09/18 10:00 BP 178/89 11/09/18 10:00 Pulse Ox 96 11/09/18 10:00 Intake & Output 11/08/18 11/09/18 11/09/18 18:59 06:59 18:59 Intake Total 660 600 380 Output Total 1020 775 300 Balance -360 -175 80 Weight 157.8 kg 157.8 kg Intake: IV 600 600 200 Piperacillin-Tazobactam 3 100 .375 gm In Sodium Chloride 0.9% 100 ml @ 25 mls/hr IVPB Q8H LISA Rx#: [id number] Sodium Chloride 0.9% 1, 500 600 200 000 ml @ 50 mls/hr IV . Q20H LISA Rx#:[id number] Oral 180 Other 60 Output: Urine 1020 775 300 Other: Voiding Method Indwelling Catheter Indwelling Catheter Indwelling Catheter - Exam Physical Exam: Revealed a 53-year-old white male, obese, room air, follows simple instructions much better compared to yesterday. Head: Atraumatic, normocephalic. HEENT:[Neck is supple.] [No neck masses.] [No thyromegaly.] [No JVD.] PERRLA, EOMI, no icterus. Chest: [Diminished breath sounds at the bases, no crackles, rhonchi no wheezes, no chest wall tenderness.] Cardiac Exam: [Normal S1 and S2, no S3 gallop, no murmur.] Abdomen: Obese, [Soft, nontender, no megaly, no rebound, no guarding, normal bowel sounds.] Extremities: [No clubbing, no edema, no cyanosis.] Abrasions noted and superficial ulceration noted in the right lower extremity area. Neurological Exam: Lethargic, opens eyes upon calling his name, sticking out his tongue, wiggling his toes upon request. Again the neurological status is improved compared to yesterday. But clearly not back to baseline. Skin: As noted above under extremities. Otherwise no rashes. Lymphatics: No lymphadenopathy. - Labs CBC & Chem 7: 11/09/18 04:46 11/09/18 04:46 Labs: Abnormal Lab Results - Last 24 Hours (Table) 11/08/18 11/08/18 11/08/18 Range/Units 11:33 16:58 20:22 RBC (4.30-5.90) m/uL Hgb (13.0-17.5) gm/dL Lymphocytes # (1.0-4.8) k/uL ABG pO2 (83-108) mmHg ABG HCO3 (21-25) mmol/L ABG Total CO2 (19-24) mmol/L ABG O2 Saturation (94-97) % Sodium (137-145) mmol/L Chloride (98-107) mmol/L BUN (9-20) mg/dL Glucose (74-99) mg/dL POC Glucose (mg/dL) 171 H 164 H 166 H (75-99) mg/dL Ammonia (<30) umol/L 11/08/18 11/09/18 11/09/18 Range/Units 23:59 04:08 04:46 RBC 4.18 L (4.30-5.90) m/uL Hgb 12.2 L (13.0-17.5) gm/dL Lymphocytes # 0.7 L (1.0-4.8) k/uL ABG pO2 (83-108) mmHg ABG HCO3 (21-25) mmol/L ABG Total CO2 (19-24) mmol/L ABG O2 Saturation (94-97) % Sodium (137-145) mmol/L Chloride (98-107) mmol/L BUN (9-20) mg/dL Glucose (74-99) mg/dL POC Glucose (mg/dL) 166 H 165 H (75-99) mg/dL Ammonia (<30) umol/L 11/09/18 11/09/18 11/09/18 Range/Units 04:46 04:46 07:58 RBC (4.30-5.90) m/uL Hgb (13.0-17.5) gm/dL Lymphocytes # (1.0-4.8) k/uL ABG pO2 (83-108) mmHg ABG HCO3 (21-25) mmol/L ABG Total CO2 (19-24) mmol/L ABG O2 Saturation (94-97) % Sodium 146 H (137-145) mmol/L Chloride 113 H (98-107) mmol/L BUN 22 H (9-20) mg/dL Glucose 156 H (74-99) mg/dL POC Glucose (mg/dL) 142 H (75-99) mg/dL Ammonia 36 H (<30) umol/L 11/09/18 Range/Units 10:05 RBC (4.30-5.90) m/uL Hgb (13.0-17.5) gm/dL Lymphocytes # (1.0-4.8) k/uL ABG pO2 54 L* (83-108) mmHg ABG HCO3 30 H (21-25) mmol/L ABG Total CO2 31 H (19-24) mmol/L ABG O2 Saturation 89.7 L (94-97) % Sodium (137-145) mmol/L Chloride (98-107) mmol/L BUN (9-20) mg/dL Glucose (74-99) mg/dL POC Glucose (mg/dL) (75-99) mg/dL Ammonia (<30) umol/L Assessment and Plan Assessment: Impression: 1 acute ventilator-dependent respiratory failure, not hypoxic and not hypercapnic, intubated only to protect his airways and to control agitation on the prevent drip. Patient was extubated 2 days ago, and seems to have tolerated the extubation well 2 altered mental status secondary to hypoglycemia/metabolic encephalopathy. Patient remains encephalopathic, but slightly improved mental status noted today compared to the last few days. 3 type 2 diabetes, insulin-dependent. Blood sugar seems to be under control at present. He is on sliding scale. 4 obesity with BMI of 40.7 5 history of hypertension 6 hyper lipidemia 7 peripheral neuropathy 8 obstructive sleep apnea on CPAP at home questionable compliance. Patient is mostly here on 28% Ventimask, ABG was reviewed earlier this morning. ABG was done on room air. 9 mild rhabdomyolysis, resolved. 10 possible aspiration pneumonia, remains on Zosyn. Recommendation: Hold on transferring the patient to a tertiary care center, at least there is slight improvement in mental status today, continue some of the medications via nasogastric tube, start enteral feeding via nasogastric tube today, continue lactulose for his elevated ammonia level via nasogastric tube. Continue to monitor all his labs, pulmonary status, resume his home meds via nasogastric tube, continue Zosyn for presumptive aspiration pneumonia. Continue Haldol for episodes of extreme agitation if needed. Will transfer the patient out of the ICU to a monitor bed on selective. Patient remains relatively ill has many complex issues as noted above, not quite ready for discharge planning, I'm hoping to his mental status will steadily improve over the next couple of days. Today the patient showed dramatic improvement compared presentation. Discussed his condition with the admitting staff Time with Patient: Less than 30
[2018-11-09 11:52] LABS: Glucose,Whole Blood 153 mg/dL (75-99)
[2018-11-09 16:06] LABS: Glucose,Whole Blood 136 mg/dL (75-99)
[2018-11-09 19:51] LABS: Glucose,Whole Blood 149 mg/dL (75-99)
[2018-11-09] MEDS: TAMSULOSIN 0.4 MG CAP.ER.24H PO SCH (21:00)
[2018-11-09 23:40] LABS: Glucose,Whole Blood 163 mg/dL (75-99)
[2018-11-10] MEDS: hydrALAZINE HCL 20 MG/ML 1 ML VIAL IVP PRN ×2 (03:29→12:14)
[2018-11-10] MEDS: SODIUM CHLORIDE 0.9% 1,000 ML IV SCH (03:29)
[2018-11-10] MEDS: IPRATROPIUM-ALBUTEROL 3 ML NEB INHALATION SCH ×5 (03:30→19:00)
[2018-11-10 03:34] LABS: Glucose,Whole Blood 179 mg/dL (75-99)
[2018-11-10 03:38] LABS: Glucose,Whole Blood 168 mg/dL (75-99)
[2018-11-10] MEDS: INSULIN ASPART 100 UNIT/ML 1 ML 10 ML VIAL SQ SCH ×4 (03:39→17:00)
[2018-11-10] MEDS: PIPERACILLIN-TAZOBACTAM 3.375 GM in SODIUM CHLORIDE 0.9% 100 ML IVPB SCH ×2 (03:39→12:05)
[2018-11-10 05:27] LABS: Basophils % (A) 1 %; Eosinophils # (A) 0.2 k/uL (0-0.7); Eosinophils % (A) 4 %; HCT 42.9 % (39.0-53.0); HGB 13.5 gm/dL (13.0-17.5); Lymphocytes # (A) 0.7 k/uL (1.0-4.8); Lymphocytes % (A) 17 %; MCH 29.3 pg (25.0-35.0); MCHC 31.5 g/dL (31.0-37.0); MCV 92.9 fL (80.0-100.0); Mean Platelet Volume 6.7; Monocytes # (A) 0.3 k/uL (0-1.0); Monocytes % (A) 7 %; Neutrophils # (A) 2.9 k/uL (1.3-7.7); Neutrophils % (A) 69 %; Platelet Count 286 k/uL (150-450); RBC 4.61 m/uL (4.30-5.90); RDW 13.6 % (11.5-15.5); WBC 4.2 k/uL (3.8-10.6)
[2018-11-10 05:39] LABS: Albumin 3.5 g/dL (3.5-5.0); Calcium 9.2 mg/dL (8.4-10.2); Potassium 4.3 mmol/L (3.5-5.1); Total Bilirubin 0.9 mg/dL (0.2-1.3); Total Protein 6.8 g/dL (6.3-8.2)
[2018-11-10] MEDS: ENALAPRILAT 1.25 MG/ML 1 ML VIAL IVP PRN ×3 (05:47→15:17)
[2018-11-10 06:59] LABS: Magnesium 2.1 mg/dL (1.6-2.3); Phosphorus 2.3 mg/dL (2.5-4.5)
[2018-11-10] MEDS: CARVEDILOL 12.5 MG TAB PO SCH ×2 (07:45→17:55)
[2018-11-10 08:07] LABS: Glucose,Whole Blood 162 mg/dL (75-99)
[2018-11-10] MEDS: PANTOPRAZOLE 40 MG/10 ML VIAL IV SCH (08:20)
[2018-11-10] MEDS: HEPARIN SODIUM,PORCINE 5,000 UNIT/ML 1 ML VIAL SQ SCH ×2 (08:20→15:17)
[2018-11-10] MEDS: ASPIRIN 81 MG PO SCH (08:20)
[2018-11-10] MEDS: GABAPENTIN 300 MG CAP PO SCH ×2 (08:21→15:17)
[2018-11-10] MEDS: DULoxetine HCL 60 MG CAPSULE.DR PO SCH ×2 (08:23→08:28)
[2018-11-10] MEDS: buPROPion XL 300 MG TAB.ER.24H PO SCH (08:31)
[2018-11-10] MEDS ORDERED: LISINOPRIL 10 MG TAB PO SCH (09:00)
[2018-11-10] MEDS: LACTULOSE 20 GM/30 ML CUP PO SCH ×2 (09:45→15:16)
--- NOTE | 2018-11-10 10:59 | P.PN ---
Subjective Progress Note Date: 11/10/18 Principal diagnosis: Altered mental status, hypoglycemia, Patient was evaluated today on 11/08/2018, he was extubated yesterday by Dr. Agustin. Remains on Ventimask, patient is saturating well, however continues to have agitation, intermittent episodes of unresponsiveness, thrashing, patient was given Haldol early this morning, and that seemed to help him significantly to calm down. He had 2 scans of the brain which came back negative. Patient tolerated the extubation well yesterday. However his mental status remains concerning, and to me looks like we are dealing with a picture of metabolic encephalopathy. No further episodes of hypoglycemia, no seizure activity, no clonus. All labs today were reviewed, relatively normal CBC, relatively normal basic metabolic profile. Blood sugar is 139 BUN is 18 creatinine is 1.19. Ammonia is minimally elevated at 42. Patient was reevaluated today patient remains in the intensive care unit, he remains on a 40% Ventimask, patient is about the same overall except that his slight improvement in his mental status. Actually he opened his eyes upon calling his name, he followed simple instructions like sticking out his tongue, and he was able to wiggle his toes upon request. At least there is a slight improvement in his mental status today, however the patient continues to have extreme lethargy, and I went ahead and ordered an ABG on the patient. It showed a low pO2 on room air, pO2 was 54, pCO2 was 43, and pH of 7.45. This ABG was done on room air, hence I recommended placing the patient on 28% Ventimask. Hemodynamically the patient is stable. His CBC is relatively normal. His electrolytes are normal. His renal profile showed a BUN of 22 creatinine of 1.14. GFR is 73, normal. No children is 156 today. Has been running in that range over the last 24 hours. Ammonia level is 36, patient had a nasogastric tube placed yesterday, and I plan to see them with the nasogastric tube, and plan to start some of the medications which were placed on hold orally. We then discussed the option of potentially transferring the patient to a tertiary care center today, however since we are noticing slight improvement in mental status, we will hold back on plans to transfer. Patient was reevaluated today on 11/10/2018, he is basically about the same. Patient gets agitated easily, he remains on 28% Ventimask, remains encephalopathic, sometimes he would follow simple instructions and sometimes he doesn't. Today I was able to get him to stick out his tongue, close and open his eyes, and wiggle toes. But more often than not, patient does not respond to any verbal stimuli. Not much change is noted in mental status over the last 24 hours. His labs were all reviewed, CBC is relatively normal. Basic metabolic profile is relatively normal. Blood sugar is 191. Ammonia level is a bit high at 30, hence I recommended starting the patient on lactulose today. He already has a nasogastric tube, and we will utilize the nasogastric tube. Patient was placed on multiple blood pressure medications for elevated blood pressure and these will be mostly given via nasogastric tube. Objective - Vital Signs Vital signs: Vital Signs Temp 98.2 F 11/10/18 08:00 Pulse 84 11/10/18 10:15 Resp 18 11/10/18 10:15 BP 169/88 11/10/18 10:15 Pulse Ox 95 11/10/18 10:15 Intake & Output 11/09/18 11/10/18 11/10/18 18:59 06:59 18:59 Intake Total 900 1215 405 Output Total 855 870 310 Balance 45 345 95 Weight 157.8 kg 158 kg Intake: IV 500 675 225 Piperacillin-Tazobactam 3 100 175 25 .375 gm In Sodium Chloride 0.9% 100 ml @ 25 mls/hr IVPB Q8H LISA Rx#: [id number] Sodium Chloride 0.9% 1, 400 500 200 000 ml @ 50 mls/hr IV . Q20H LISA Rx#:[id number] Intake, IV Titration 50 Amount Sodium Chloride 0.9% 1, 50 000 ml @ 50 mls/hr IV . Q20H LISA Rx#:[id number] Oral 180 Tube Feeding 100 310 150 Other 120 180 30 Output: Urine 855 870 310 Other: Voiding Method Indwelling Catheter Indwelling Catheter Indwelling Catheter - Exam Physical Exam: Revealed a 53-year-old white male, obese, on 28% Ventimask, Head: Atraumatic, normocephalic. HEENT:[Neck is supple.] [No neck masses.] [No thyromegaly.] [No JVD.] PERRLA, EOMI, no icterus. Chest: [Diminished breath sounds at the bases, no crackles, rhonchi no wheezes, no chest wall tenderness.] Cardiac Exam: [Normal S1 and S2, no S3 gallop, no murmur.] Abdomen: Obese, [Soft, nontender, no megaly, no rebound, no guarding, normal bowel sounds.] Extremities: [No clubbing, no edema, no cyanosis.] Abrasions noted and superficial ulceration noted in the right lower extremity area. Neurological Exam: Lethargic, opens eyes upon calling his name, sticking out his tongue, wiggling his toes upon request. Opening and closing his eyes upon request at times, Skin: As noted above under extremities. Otherwise no rashes. Lymphatics: No lymphadenopathy. - Labs CBC & Chem 7: 11/10/18 04:38 11/10/18 04:38 Labs: Abnormal Lab Results - Last 24 Hours (Table) 11/09/18 11/09/18 11/09/18 Range/Units 11:50 16:03 19:49 Lymphocytes # (1.0-4.8) k/uL Sodium (137-145) mmol/L Chloride (98-107) mmol/L BUN (9-20) mg/dL Glucose (74-99) mg/dL POC Glucose (mg/dL) 153 H 136 H 149 H (75-99) mg/dL Phosphorus (2.5-4.5) mg/dL Ammonia (<30) umol/L 11/09/18 11/10/18 11/10/18 Range/Units 23:38 03:33 03:38 Lymphocytes # (1.0-4.8) k/uL Sodium (137-145) mmol/L Chloride (98-107) mmol/L BUN (9-20) mg/dL Glucose (74-99) mg/dL POC Glucose (mg/dL) 163 H 179 H 168 H (75-99) mg/dL Phosphorus (2.5-4.5) mg/dL Ammonia (<30) umol/L 11/10/18 11/10/18 11/10/18 Range/Units 04:38 04:38 04:38 Lymphocytes # 0.7 L (1.0-4.8) k/uL Sodium 146 H (137-145) mmol/L Chloride 114 H (98-107) mmol/L BUN 26 H (9-20) mg/dL Glucose 191 H (74-99) mg/dL POC Glucose (mg/dL) (75-99) mg/dL Phosphorus 2.3 L (2.5-4.5) mg/dL Ammonia (<30) umol/L 11/10/18 11/10/18 Range/Units 08:06 08:20 Lymphocytes # (1.0-4.8) k/uL Sodium (137-145) mmol/L Chloride (98-107) mmol/L BUN (9-20) mg/dL Glucose (74-99) mg/dL POC Glucose (mg/dL) 162 H (75-99) mg/dL Phosphorus (2.5-4.5) mg/dL Ammonia 30 H (<30) umol/L Assessment and Plan Assessment: Impression: 1 acute ventilator-dependent respiratory failure, not hypoxic and not hypercapnic, he was intubated only to protect his airways and to control agitation on the prevent drip. Patient was extubated 3 days ago, 2 altered mental status secondary to hypoglycemia/metabolic encephalopathy. Patient remains encephalopathic, but slightly improved mental status noted today compared to the last few days. 3 type 2 diabetes, insulin-dependent. 4 obesity with BMI of 40.7 5 history of hypertension 6 hyper lipidemia 7 peripheral neuropathy 8 obstructive sleep apnea on CPAP at home questionable compliance. 9 mild rhabdomyolysis, resolved. 10 possible aspiration pneumonia, remains on Zosyn. Recommendation: Considering no major dramatic changes in his mental status, considering the patient remains encephalopathic, and considering we have no neurological coverage in our facility, I discussed and suggested to the admitting physician to consider transferring the patient to a tertiary care center or at least someplace where there is neurological coverage. I believe it is best to transfer the patient at this point, and he could be even transferred to a regular medical floor, does not truly need to be in the ICU. Time with Patient: Less than 30
--- NOTE | 2018-11-10 11:55 | P.DS ---
Providers Date of admission: 11/04/18 16:46 Expected date of discharge: 11/10/18 Attending physician: Selena Barfield Consults: 11/04/18 16:46 Consult Physician Urgent Consulting Provider: Mayelin Agustin Consult Reason/Comments: Critical care management Do you want consulting provider notified?: Yes Primary care physician: Ni Castillo [facility] Course: Discharge diagnosis 1. Altered mental status with agitation. Possibly due to hypoglycemia with possibility of metabolic encephalopathy. Patient is currently off mechanical ventilation and sedated. Blood sugars have been improved. computed tomography scan of the brain without any acute abnormality. EEG negative for seizure activity. 2. Acute ventilator-dependent respiratory failure: Not hypoxic and not hypercapnic. Intubated only to protect his airways. Patient extubated on 11/07 3. Possible left lower lobe pneumonia. Chest x-ray completed showing patchy opacities in the left mid and lower lobe early pneumonia is not excluded. Patient currently on Zosyn. Chest x-ray showing improvement 4. Hypoglycemia. Initial blood sugar 38. Blood sugars have improved. Hemoglobin A1c 8.0 5. Rhabdomyolysis. Total creatinine kinase 1282 6. Elevated ammonia level. Initial ammonia level 55. Ammonia level down from 36-30 7. Acute kidney injury. Improved with IV fluids 8. Diabetes mellitus type 2. Per EMS had previous episodes of hypoglycemia. currently on D5 half-normal saline. Patient is also on sliding scale coverage 9. Obstructive sleep apnea. Patient noncompliant with CPAP 10. Skin abrasions 11. History of BPH 12. Essential hypertension 13. History of hyperlipidemia 14. Peripheral neuropathy Hospital course This is a 53-year-old male patient of Dr. Castillo. Patient is brought into the ER via EMS when he was found to be combative and noncoherent. Upon arrival he per EMS blood sugar was 38 patient's blood sugar was her first the patient remained combative. At that time patient was intubated in the emergency room for airway precautions. Patient has a past medical history of heart failure, COPD, diabetes mellitus, hyperlipidemia, hypertension, sleep apnea with noncompliance of CPAP machine, neuropathy, bipolar, depression and panic disorder. Chest x-ray completed showing ET tube at the level of the medial clavicle head which is acceptable. Cardiomegaly patchy opacity left mid and lower lung. Early pneumonia not excluded. X-ray of Head and cervical spine completed showing no acute fracture or dislocation evident in the cervical spine. No acute intracranial hemorrhage, mass effect or midline shift is seen. Additional findings above possible right upper lobe pneumonia, cannot exclude thoracic aortic aneurysm. Patient was admitted to the intensive care unit. Dr. Gross was consulted for critical care management. During examination patient remains on mechanical ventilation. Patient is sedated with Diprivan. Per nursing staff no family present. Possible extubation today per critical care. On 11/06/2018 patient was seen and examined in the intensive care unit he is intubated sedated maintained on mechanical ventilation, sedation was held this morning and patient did not have any significant response EEG was ordered by Dr. Agustin, currently patient is back on sedation. On 11/07/2018 patient was seen and examined in the ICU he was extubated this morning and seems to be tolerating well patient is moving all 4 extremities spontaneously however he is not responding at this time. On 11/08/2018 patient was seen and examined in the ICU he was extubated yesterday he is maintained on Ventimask he is moving all 4 extremities with mild agitation he is not responding to any questioning, he was given Haldol earlier in the day due to severe agitation, patient may have evidence of metabolic encephalopathy, no neurology service in the hospital at this time if not improving still a.m. May need to transfer to a tertiary care center 11/09/2018 patient remains in the ICU. Currently on a Ventimask. Patient opens his eyes to his name. He is able to follow a few simple commands such as sticking out his tongue and wiggling his toes. This is improvement since yesterday. Case discussed with critical care doctor, Dr. Pinon. The recommending to continue to monitor patient for another 24 hours to further evaluate patient's mentation. If no improvement or worsens likely will need to transfer to a tertiary care center such as [facility] possibly tomorrow. EEG showed no seizure activity. Chest x-ray showing improving. Ammonia level is down to 36. He did have a temp of 100.2 yesterday afternoon 11/10/2018 patient is currently about the same. He is on Ventimask at 28%. Remains encephalopathic. He is able to follow some simple commands and then sometimes he doesn't. Today he was able to open his eyes, stick out Tongue and wiggle his toes. But per critical care service there are times when patient does not respond to verbal stimuli. Case was discussed with critical care team. Since there is no neurological service at this hospital and patient's mentation has not had improvement. They're recommending that patient be transferred to a tertiary care center to be evaluated by a neurological service. Blood sugars 191. Ammonia level 30 but improving with the lactulose. He is currently receiving TF through [facility]. Patient had elevated blood pressure this morning blood pressure medications given. manager functional is working on overnight transferred to a tertiary care center. Also note the patient is currently just on a Humalog sliding scale. At home he had been on Lantus 70 twice a day lispro 40 units 3 times a day before meals and sliding scale. A1c is 8.0 I performed an examination of the patient and discussed their management with the physician Senior Research Fellow. I have reviewed the Physician Senior Research Fellow's notes and agree with the documented findings and plan of care Patient Condition at Discharge: Stable Plan - Discharge Summary New Discharge Prescriptions: No Action Carvedilol 25 mg PO BID Simvastatin [Zocor] 40 mg PO HS Fenofibrate 160 mg PO DAILY Gabapentin [Neurontin] 900 mg PO TID Albuterol Inhaler [Ventolin Hfa Inhaler] 2 puff INHALATION RT-QID PRN PRN Reason: Shortness Of Breath Insulin Lispro [humaLOG Kwikpen] 40 units SQ AC-TID Doxazosin Mesylate 8 mg PO HS DULoxetine HCL [Duloxetine HCl] 60 mg PO DAILY Fluticasone Nasal [place] [Flonase Nasal [place]] 2 sprays EA NOSTRIL BID Tamsulosin HCl 0.8 mg PO HS buPROPion HCL [Wellbutrin XL] 300 mg PO DAILY rOPINIRole HCL [Requip] 6 mg PO TID Aspirin [Children's Aspirin] 81 mg PO DAILY Isosorbide Mononitrate ER [Imdur] 30 mg PO DAILY #30 tab.er.24h Furosemide [Lasix] 40 mg PO BID #60 tablet Diclofenac Sodium Gel [Voltaren Gel] 2 gm TOPICAL BID Insulin Glargine,Hum.rec.anlog [Lantus Solostar] 70 unit SQ BID Insulin Lispro [humaLOG Kwikpen] See Protocol SQ AC-TID Triamcinolone 0.5% Cream [Kenalog 0.5% Cream] 1 applic TOPICAL BID PRN PRN Reason: ECXEMA Discharge Medication List Albuterol Inhaler [Ventolin Hfa Inhaler] 2 puff INHALATION RT-QID PRN 07/25/15 [ History] Carvedilol 25 mg PO BID 07/25/15 [History] Fenofibrate 160 mg PO DAILY 07/25/15 [History] Gabapentin [Neurontin] 900 mg PO TID 07/25/15 [History] Insulin Lispro [humaLOG Kwikpen] 40 units SQ AC-TID 07/25/15 [History] Simvastatin [Zocor] 40 mg PO HS 07/25/15 [History] DULoxetine HCL [Duloxetine HCl] 60 mg PO DAILY 07/07/16 [History] Doxazosin Mesylate 8 mg PO HS 07/07/16 [History] Fluticasone Nasal [place] [Flonase Nasal [place]] 2 sprays EA NOSTRIL BID 07/07/16 [ History] Tamsulosin HCl 0.8 mg PO HS 07/07/16 [History] buPROPion HCL [Wellbutrin XL] 300 mg PO DAILY 09/06/17 [History] rOPINIRole HCL [Requip] 6 mg PO TID 10/08/17 [History] Aspirin [Children's Aspirin] 81 mg PO DAILY 02/03/18 [History] Furosemide [Lasix] 40 mg PO BID #60 tablet 02/05/18 [Rx] Isosorbide Mononitrate ER [Imdur] 30 mg PO DAILY #30 tab.er.24h 02/05/18 [Rx] Diclofenac Sodium Gel [Voltaren Gel] 2 gm TOPICAL BID 11/04/18 [History] Insulin Glargine,Hum.rec.anlog [Lantus Solostar] 70 unit SQ BID 11/04/18 [ History] Insulin Lispro [humaLOG Kwikpen] See Protocol SQ AC-TID 11/04/18 [History] Triamcinolone 0.5% Cream [Kenalog 0.5% Cream] 1 applic TOPICAL BID PRN 11/04/18 [History] Follow up Appointment(s)/Referral(s): Ni Castillo MD [Primary Care Provider] - 1-2 days
[2018-11-10 11:58] LABS: Glucose,Whole Blood 218 mg/dL (75-99)
[2018-11-10 17:34] VITALS: TEMP 98.3
[2018-11-10 18:01] LABS: Glucose,Whole Blood 214 mg/dL (75-99)
[2018-11-10 19:01] VITALS: BP 144/68; RESP 9
[2018-11-10 19:10] VITALS: PULSE 84
== END 2018-11-10 19:33 | disposition short-term general hospital (02) | DRG 637 ==
LOC: EC 14:10 → 2SICU 16:46
PROVIDERS: ADMIT Internal Medicine; ATTEND Internal Medicine
PROC: 0BH17EZ Insertion of Endotracheal Airway into Trachea, Via Natural or Artificial Opening (ICD-10-PCS; principal; 2018-11-04)
PROC: 5A1945Z Respiratory Ventilation, 24-96 Consecutive Hours (ICD-10-PCS; 2018-11-04)
DX: E11.649 Type 2 diabetes mellitus with hypoglycemia without coma (principal); J18.9 Pneumonia, unspecified organism; J96.00 Acute respiratory failure, unspecified whether with hypoxia or hypercapnia; G93.41 Metabolic encephalopathy; Z68.41 Body mass index [BMI] 40.0-44.9, adult; I13.0 Hypertensive heart and chronic kidney disease with heart failure and stage 1 through stage 4 chronic kidney disease, or unspecified chronic kidney disease; M62.82 Rhabdomyolysis; I50.32 Chronic diastolic (congestive) heart failure; J44.0 Chronic obstructive pulmonary disease with (acute) lower respiratory infection; Z99.11 Dependence on respirator [ventilator] status; N17.9 Acute kidney failure, unspecified; E11.22 Type 2 diabetes mellitus with diabetic chronic kidney disease; E66.01 Morbid (severe) obesity due to excess calories; E03.9 Hypothyroidism, unspecified; E11.42 Type 2 diabetes mellitus with diabetic polyneuropathy; E78.5 Hyperlipidemia, unspecified; F31.9 Bipolar disorder, unspecified; G47.33 Obstructive sleep apnea (adult) (pediatric); N18.3 Chronic kidney disease, stage 3 (moderate); F41.0 Panic disorder [episodic paroxysmal anxiety]; G25.81 Restless legs syndrome; N40.0 Benign prostatic hyperplasia without lower urinary tract symptoms; Z91.19 Patient's noncompliance with other medical treatment and regimen; Z87.891 Personal history of nicotine dependence; Z80.7 Family history of other malignant neoplasms of lymphoid, hematopoietic and related tissues; Z79.899 Other long term (current) drug therapy; Z79.82 Long term (current) use of aspirin; Z79.4 Long term (current) use of insulin
CPT/HCPCS: 31500; 36415; 36600; 70450; 71045; 72125; 74018; 80048; 80053; 80306; 81001; 82140; 82550; 82553; 82805; 83036; 83605; 83735; 84100; 84132; 84484; 85025; 85610; 85730; 87070; 87205; 87324; 93005; 94002; 94003; 94640; 95819; 96374; 99291